=== PATIENT | male | born 1935 | race Caucasian/White ===

== ENCOUNTER 2017-07-15 10:50 | Observation (INO) | payer OTHER ==
[2017-07-15 11:16] VITALS: BMI 24.4
--- NOTE | 2017-07-15 11:47 | PDOC ---
History of Present Illness <Jun Alejandro - Last Filed: 07/15/17 19:16> - General History Source: Care Provider (god daughter, ) Exam Limitations: No Limitations - History of Present Illness Initial Comments: 07/15/17 11:47 CHIEF COMPLAINT: Witnessed Mechanical fall on ice, laceration to left episcopalian area and left sided rib and chest pain. HISTORY OF PRESENT ILLNESS: The patient is a 82 year old male with a history of HTN, HLD, dementia . reports that patient has episodes where he packs a bag and wanders around the neighborhood. Today he took a plastic bag and left the house while was in the bathroom. Goddaughter started to drive around to look for him found him laying in the street with laceration to left episcopalian. Goddaughter reports that the fall was witnessed by a car nearby who stated he just fell. Upon arrival to emergency department patient complained of nausea and had episode of stool incontinence. Patient is awake to self unaware of environment which is patient's baseline. Family reports the patient has no other change in mental status. No active vomiting. Complaining of left rib and chest pain. MEDS:[Gabapentin, paroxetine, donepezil, Alprazolam, PRN, Simvistatin, memantine , loratadine, atenolol, ] ALLERGIES: []None PCP: Kevin REVIEW OF SYSTEMS: GENERAL/CONSTITUTIONAL: Awake alert and oriented HEAD, EYES, EARS, NOSE AND THROAT: No change in vision. No facial edema, no bruising. NO active bleeding. Nares intact. RESPIRATORY: No cough, wheezing, or hemoptysis. CARDIAC: Denies chest pain, no shortness of breathe. MUSCULOSKELETAL: No spinal point tenderness, Good ROM to all four extremeties. NO CVA tenderness. [No] lateral neck pain. GI/: Denies abdominal pain, no nausea or vomiting, no bloody stool, no Hematuria. SKIN : Superficial abrasion to the palm of the right hand, 3 cm laceration to left temporal area, abrasion to left knee. NEUROLOGIC: No loss of consciousness, no numbness or tingling. PHYSICAL EXAM: GENERAL: Awake and alert and oriented x1 ( Normal patient baseline). EYES: The pupils are equal, round, and reactive to light, with clear, conjunctiva. Good extraocular movement. No nystagmus NOSE: No nasal trauma . Midface stable MOUTH: Teeth intact. HEAD: 3 Cm skin avulsion vs stellate laceration to the left temporal area. EARS: The ear canals and tympanic membranes are normal without trauma. No drainage. NECK: No Lower cervical C-spine tenderness, no pain with chin to chest. CHEST: The lungs are clear without crackles, or wheezes. No subcutaneous emphysema. No crepitus. HEART: Heart is regular rhythm, with normal S1 and S2, no murmurs. ABDOMEN: The abdomen is soft and nontender with normal bowel sounds. There is no guarding or rebound. MUSCULOSKELETAL: No spinal point tenderness. No bruising or erythema. Pelvis stable. EXTREMITIES: Extremities are normal. No visible traumatic injury. NEUROLOGICAL:Mental status: The patient is oriented x1 (normal baseline). No Generalized headache, Romberg [-] Cranial nerves: Cranial nerves II through XII are intact Motor: The upper extremities are 5 over 5 in all muscle groups. The lower extremities are 5 over 5 in all muscle groups. Sensation: Sensation is intact to light touch throughout. Cerebellar: Afhtli-aqfhps-tgyy is normal in both upper extremities. Heel-knee- salguero is normal in both lower extremities. Reflexes: 2+ and symmetric in the upper and lower extremities. Gait: Normal. Heel and toe walking are normal. Tandem gait is normal. SKIN: Bruise to the right chest, Superficial abrasion to the palm of right hand , 3 cm laceration to left temporal area, area surrounding wound is contused and friable, abrasion to the left knee. 07/15/17 15:57 <Milly Villafana - Last Filed: 07/15/17 19:54> - General Chief Complaint: Injury Stated Complaint: INJURY Time Seen by Provider: 07/15/17 11:21 Past History <Jun Alejandro - Last Filed: 07/15/17 19:16> - Past Medical History COPD: No Dementia: Yes - Surgical History Neurologic Surgery: Yes (NECK SURGERY) - Suicide/Smoking/Psychosocial Hx Smoking History: Never smoked <Milly Villafana - Last Filed: 07/15/17 19:54> - Past Medical History Allergies/Adverse Reactions: Allergies Allergy/AdvReac Type Severity Reaction Status Date / Time No Known Allergies Allergy Verified 07/15/17 11:11 Home Medications: Ambulatory Orders Alprazolam 1 mg PO DAILY PRN 04/03/17 Atenolol [Tenormin] 50 mg PO DAILY 04/03/17 Loratadine 10 mg PO DAILY 04/03/17 Paroxetine HCl 10 mg PO DAILY 04/03/17 Simvastatin 40 mg PO DAILY 04/03/17 Donepezil HCl 10 mg PO HS 07/15/17 Gabapentin 300 mg PO TID 07/15/17 Memantine HCl [Namenda -] 5 mg PO BID 07/15/17 *Physical Exam - Vital Signs Last Vital Signs Temp Pulse Resp BP Pulse Ox 98.6 F 84 20 123/73 99 07/15/17 17:00 07/15/17 17:00 07/15/17 17:00 07/15/17 17:00 07/15/17 18:59 <Jun Alejandro - Last Filed: 07/15/17 19:16> - Vital Signs Last Vital Signs Temp Pulse Resp BP Pulse Ox 97.7 F 55 L 19 108/65 97 07/15/17 11:11 07/15/17 11:11 07/15/17 11:11 07/15/17 11:11 07/15/17 11:11 <Milly Villafana - Last Filed: 07/15/17 19:54> Procedures - Consent Consent obtained: Verbal, From Patient - Laceration/Wound Repair Left Anterior Head Wound Length: to 2.5 cm Wound Explored: clean Wound's Depth, Shape: superficial, irregular, contused tissue Irrigated w/ Saline: Yes Betadine Prep: Yes Anesthesia: 1% Lidocaine Wound Repaired With: Sutures Suture Size/Type: 5:0, nylon Number of Sutures: 5 <Jun Alejandro - Last Filed: 07/15/17 19:16> ED Treatment Course - LABORATORY CBC & Chemistry Diagram: 07/15/17 13:08 07/15/17 13:08 - ADDITIONAL ORDERS Additional order review: Laboratory Results 07/15/17 13:08 Sodium 140 Potassium 4.5 Chloride 104 Carbon Dioxide 28 Anion Gap 8 BUN 16 D Creatinine 0.9 Creat Clearance w eGFR > 60 Random Glucose 106 Calcium 8.9 Total Bilirubin 0.6 AST 23 D ALT 22 Alkaline Phosphatase 100 Creatine Kinase 170 Creatine Kinase Index 1.5 CK-MB (CK-2) 2.583 Troponin I < 0.02 Total Protein 8.0 Albumin 4.4 07/15/17 13:08 RBC 4.44 MCV 93.4 MCHC 32.5 RDW 14.9 MPV 9.0 Neutrophils % 84.8 H D Lymphocytes % 5.5 L D Monocytes % 5.7 Eosinophils % 3.6 D Basophils % 0.4 <Jun Alejandro - Last Filed: 07/15/17 19:16> - LABORATORY CBC & Chemistry Diagram: 07/15/17 13:08 07/15/17 13:08 - RADIOLOGY Radiology Studies Ordered: Category Date Time Status CERVICAL SPINE CT W/O CONTR [CT] Stat CT Scan 07/15/17 11:[address] WITHOUT CONTRAST [CT] Stat CT Scan 07/15/17 11:34 Ordered CHEST PA & LAT [RAD] Stat Radiology 07/15/17 11:35 Ordered RIBS-LEFT SIDE [RAD] Stat Radiology 07/15/17 11:35 Ordered <Milly Villafana - Last Filed: 07/15/17 19:54> Medical Decision Making - Medical Decision Making 07/15/17 11:59 A/P: Patient with dementia, status post fall found on the street fall was unwitnessed by family however states another car witnessed him fall. Sustained laceration to left temporal area and pain to left side of chest and ribs. Patient denies any other pain there is no other visible injury besides an abrasion to the palm of the right hand. Patient is complaining of nausea will send patient for immediate head CT and neck. We will also perform chest x-ray, left ribs, CBC, CMP, cardiac profile, EKG. 07/15/17 13:09 Laboratory Results - last 24 hr 07/15/17 07/15/17 13:08 13:08 WBC 18.3 H D RBC 4.44 Hgb 13.5 Hct 41.5 MCV 93.4 MCH 30.4 MCHC 32.5 RDW 14.9 Plt Count 152 MPV 9.0 Neutrophils % 84.8 H D Lymphocytes % 5.5 L D Monocytes % 5.7 Eosinophils % 3.6 D Basophils % 0.4 Sodium 140 Potassium 4.5 Chloride 104 Carbon Dioxide 28 Anion Gap 8 BUN 16 D Creatinine 0.9 Creat Clearance w eGFR > 60 Random Glucose 106 Calcium 8.9 Total Bilirubin 0.6 AST 23 D ALT 22 Alkaline Phosphatase 100 Creatine Kinase 170 Creatine Kinase Index 1.5 CK-MB (CK-2) 2.583 Troponin I < 0.02 Total Protein 8.0 Albumin 4.4 Elevated WBCs most likely traumatic with no shift. Labs are otherwise unremarkable. Twelve-lead EKG was performed and reviewed by me. There is normal sinus rhythm with a left axis deviation. No ST elevations, no ST depressions, QTC 429 07/15/17 14:59 CT scan with IV contrast ordered for chest abdomen and pelvis as per request of Dr. Henry 07/15/17 15:07 07/15/17 15:57 Patient went down to CT scan, was not compliant with examination unable to lay flat and stay on stretcher CT scan felt it was unsafe for patient. I discussed case with Dr. Henry will perform US of abdomen to rule out acute injury. Patient is refusing to have urinalysis performed. Remains afebrile. 07/15/17 16:17 07/15/17 17:04 has told me that she gave her a Xanax 1 mg PO at approx 4 pm because he was agitated in US. I have instructed not to give any medication without the knowledge of hospital staff. She verbalized understanding. 07/15/17 18:34 Dr. Alejandro to repair wound to the left episcopalian. US with no free fluid in the upper abdomen. 07/15/17 19:20 07/15/17 19:28 Dr. Henry recommends DC with family believes white count is secondary to fall, given no obvious source of the patient's elevated white count will send blood cultures, UA and UC. Will observe patient if urinalysis is unremarkable will DC home. I am signing this patient out to my colleague: [JENNIFER Carcamo ] In brief, this patient is being seen in the ED for a chief complaint of: Mechanical fall, dementia, I have completed the initial assessment interview note and have ordered: Labs, CT, ultrasound, urinalysis I have reviewed the following results: Ultrasound, x-ray, labs Pending results are: UA Plan for disposition is as follows: Admit to short stay [facility] [place], [place] pending UA 07/15/17 19:51 <Milly Villafana - Last Filed: 07/15/17 19:54> *DC/Admit/Observation/Transfer <Jun Alejandro - Last Filed: 07/15/17 19:16> - Discharge Dispostion Admit: Yes <Milly Villafana - Last Filed: 07/15/17 19:54> Diagnosis at time of Disposition: Fall, Dementia, Leukocytosis
--- NOTE | 2017-07-15 12:41 | PDOC ---
*Physical Exam - Vital Signs Last Vital Signs Temp Pulse Resp BP Pulse Ox 97.7 F 55 L 19 108/65 97 07/15/17 11:11 07/15/17 11:11 07/15/17 11:11 07/15/17 11:11 07/15/17 11:11 ED Treatment Course - LABORATORY CBC & Chemistry Diagram: 07/15/17 13:08 07/15/17 13:08 Medical Decision Making - Medical Decision Making 07/15/17 12:39 Pt seen by the Advanced Practice Provider under my direct supervision Ancillary studies reviewed I agree with plan as outlined by the Advanced Practice Provider [employer]BI[employer]PLICATION ENGINEER Andolino *DC/Admit/Observation/Transfer Diagnosis at time of Disposition: Fall, Dementia, Leukocytosis - Discharge Dispostion Condition at time of disposition: Stable - Referrals - Patient Instructions - Post Discharge Activity
[2017-07-15 13:26] LABS: BASO % 0.4 % (0-2.0); EOS % 3.6 % (0-4.5); HEMATOCRIT 41.5 % (35.4-49); HEMOGLOBIN 13.5 GM/dL (11.7-16.9); LYMPH % 5.5 % (8-40); MCH 30.4 pg (25.7-33.7); MCHC 32.5 g/dl (32.0-35.9); MEAN CELL VOLUME 93.4 fl (80-96); MONO % 5.7 % (3.8-10.2); NEUT % 84.8 % (42.8-82.8); PLATELET COUNT 152 K/MM3 (134-434); RBC 4.44 M/mm3 (4.00-5.60); RDW 14.9 % (11.9-15.9); WHITE BLOOD COUNT 18.3 K/mm3 (4.0-10.0)
[2017-07-15 14:23] LABS: ALBUMIN 4.4 g/dl (3.4-5.0); ANION GAP 8 (8-16); BLOOD UREA NITROGEN 16 mg/dL (7-18); CALCIUM 8.9 mg/dL (8.5-10.1); CHLORIDE 104 mmol/L (98-107); CO2 28 mmol/L (21-32); CREATININE 0.9 mg/dL (0.7-1.3); GLUCOSE,RANDOM 106 mg/dL (74-106); POTASSIUM 4.5 mmol/L (3.5-5.1); SGOT/AST 23 U/L (15-37); SGPT/ALT 22 U/L (12-78); SODIUM 140 mmol/L (136-145)
[2017-07-15 14:27] LABS: ALK PHOS 100 U/L (45-117); BILIRUBIN,TOTAL 0.6 mg/dL (0.2-1.0)
[2017-07-15] MEDS ORDERED: ACETAMINOPHEN 325 MG TABLET (FP) PO PRN (17:07)
--- NOTE | 2017-07-15 17:09 | HP ---
CHIEF COMPLAINT: "My left shoulder hurts" PCP: Dr Brown HISTORY OF PRESENT ILLNESS: This is an 82 yo M with PMH of dementia, HTN, HLD, brought in by s/p fall. Patient is a poor historian and information is obtained from family. Per , he occasionally leaves the house and wonders off on the streets, getting lost. She was in the bathroom when he left so she called her goddaughter who drove around looking for him, finding him lying on the tarmac in the middle of a roadway, with blood gushing from his head. He was at his confused mental status baseline. He states that he fell mechanically. There was a car nearby and the local delivery driver confirmed that patient "just fell". Patient denies getting hit by car. In Ed patient complained of nausea and had episode of stool incontinence ( nonmelenous, nonbloody). He complains of vague L shoulder and rib pain. He denies loc, cp, sob, h/a, abd pain, n/v. complains of being unable to take care of him. ER course was notable for: (1)labs (2)ekg unremarkable for acute acs or arrythmia (3)imaging of head, shoulder, ribs-unremarkable for bleed or acute fracture; abd us Recent Travel: none PAST MEDICAL HISTORY: as above PAST SURGICAL HISTORY: as above Social History: lives with , no aid Smoking: none Alcohol: none Drugs: none Family History: unknown Allergies No Known Allergies Allergy (Verified 07/15/17 11:11) HOME MEDICATIONS: Home Medications Medication Instructions Recorded Alprazolam 1 mg PO DAILY 04/03/17 Atenolol [Tenormin] 50 mg PO DAILY 04/03/17 Loratadine 10 mg PO DAILY 04/03/17 Paroxetine HCl 10 mg PO DAILY 04/03/17 Simvastatin 10 mg PO DAILY 04/03/17 REVIEW OF SYSTEMS Absent: chest pain,palpitations RESPIRATORY: Absent: cough, shortness of breath GASTROINTESTINAL: Absent: abdominal pain, nausea, vomiting GENITOURINARY: Absent: dysuria NEUROLOGIC: Absent: headache, focal weakness or paresthesias PHYSICAL EXAMINATION Vital Signs - 24 hr 07/15/17 11:11 Temperature 97.7 F Pulse Rate 55 L Respiratory 19 Rate Blood Pressure 108/65 O2 Sat by Pulse 97 Oximetry (%) GENERAL: Awake, alert, oriented to self only HEAD: L sided forehead laceration. EYES: Pupils equal, round and reactive to light, extraocular movements intact, sclera anicteric, conjunctiva clear. No lid lag. EARS, NOSE, THROAT: Moist mucous membranes. NECK: supple LUNGS: Breath sounds equal, clear to auscultation bilaterally. HEART: Regular rate and rhythm, normal S1 and S2 ABDOMEN: Soft, nontender, moderately distended, normoactive bowel sounds, no guarding, no rebound, no masses. MUSCULOSKELETAL: No CVA tenderness. UPPER EXTREMITIES: 2+ pulses, warm, well-perfused. No cyanosis. No clubbing. No peripheral edema. L shouder pain, no obvious bony deformity LOWER EXTREMITIES: 1+ pulses, warm, well-perfused. No calf tenderness. No peripheral edema. L knee abrasion NEUROLOGICAL: Cranial nerves II-XII intact. Normal speech. PSYCHIATRIC: somewhat Cooperative. Good eye contact. SKIN: Warm, dry, lesion as above Laboratory Results - last 24 hr 07/15/17 07/15/17 13:08 13:08 WBC 18.3 H D RBC 4.44 Hgb 13.5 Hct 41.5 MCV 93.4 MCH 30.4 MCHC 32.5 RDW 14.9 Plt Count 152 MPV 9.0 Neutrophils % 84.8 H D Lymphocytes % 5.5 L D Monocytes % 5.7 Eosinophils % 3.6 D Basophils % 0.4 Sodium 140 Potassium 4.5 Chloride 104 Carbon Dioxide 28 Anion Gap 8 BUN 16 D Creatinine 0.9 Creat Clearance w eGFR > 60 Random Glucose 106 Calcium 8.9 Total Bilirubin 0.6 AST 23 D ALT 22 Alkaline Phosphatase 100 Creatine Kinase 170 Creatine Kinase Index 1.5 CK-MB (CK-2) 2.583 Troponin I < 0.02 Total Protein 8.0 Albumin 4.4 ASSESSMENT/PLAN: This is an 82 yo M with PMH of dementia, HTN, HLD, brought in by s/p fall. s/p mechanical fall, L shoulder pain, L head laceration -r/o MVA -f/u abdominal US to r/o splenic or hepatic laceration, observe overnight -tylenol for L shoulder pain -laceration repaired in ed Worsening dementia -requires placement or VNS -aricept 10 d, memantine 5 bid -paxil 10 d Neuropathy -gabapentin 300 bid HTN -atenolol 50 d HLD -lipitor 40 hs FEN no ivf lytes stable na restricted diet scds, diet Obs m/s Problem List - Problem (1) Fall Code(s): W19.XXXA - UNSPECIFIED FALL, INITIAL ENCOUNTER (2) Dementia Code(s): F03.90 - UNSPECIFIED DEMENTIA WITHOUT BEHAVIORAL DISTURBANCE (3) HTN (hypertension) Code(s): I10 - ESSENTIAL (PRIMARY) HYPERTENSION (4) HLD (hyperlipidemia) Code(s): E78.5 - HYPERLIPIDEMIA, UNSPECIFIED (5) Laceration of head Code(s): S01.91XA - LACERATION W/O FOREIGN BODY OF UNSP PART OF HEAD, INIT Visit type - Emergency Visit Emergency Visit: Yes Care time: The patient presented to the Emergency Department on the above date and was hospitalized for further evaluation of their emergent condition. - New Patient This patient is new to me today: Yes Date on this admission: 07/15/17 - Critical Care Critical Care patient: No
[2017-07-15 17:23] VITALS: BP 123/73; PULSE 84; TEMP 98.6
--- NOTE | 2017-07-15 20:04 | PDOC ---
*Physical Exam - Vital Signs Last Vital Signs Temp Pulse Resp BP Pulse Ox 98.6 F 84 20 123/73 99 07/15/17 17:00 07/15/17 17:00 07/15/17 17:00 07/15/17 17:00 07/15/17 18:59 ED Treatment Course - LABORATORY CBC & Chemistry Diagram: 07/15/17 13:08 07/15/17 13:08 - ADDITIONAL ORDERS Additional order review: Laboratory Results 07/15/17 13:08 Sodium 140 Potassium 4.5 Chloride 104 Carbon Dioxide 28 Anion Gap 8 BUN 16 D Creatinine 0.9 Creat Clearance w eGFR > 60 Random Glucose 106 Calcium 8.9 Total Bilirubin 0.6 AST 23 D ALT 22 Alkaline Phosphatase 100 Creatine Kinase 170 Creatine Kinase Index 1.5 CK-MB (CK-2) 2.583 Troponin I < 0.02 Total Protein 8.0 Albumin 4.4 07/15/17 13:08 RBC 4.44 MCV 93.4 MCHC 32.5 RDW 14.9 MPV 9.0 Neutrophils % 84.8 H D Lymphocytes % 5.5 L D Monocytes % 5.7 Eosinophils % 3.6 D Basophils % 0.4 Medical Decision Making - Medical Decision Making Patient with unwitnessed fall.. patient pending observations admission. signed out to hospitalist team by Dr. Knapp *DC/Admit/Observation/Transfer Diagnosis at time of Disposition: Fall Qualifiers: Encounter type: initial encounter Qualified Code(s): W19.XXXA - Unspecified fall, initial encounter Dementia Qualifiers: Dementia type: unspecified type Dementia behavioral disturbance: without behavioral disturbance Qualified Code(s): F03.90 - Unspecified dementia without behavioral disturbance Leukocytosis Qualifiers: Leukocytosis type: unspecified Qualified Code(s): D72.829 - Elevated white blood cell count, unspecified - Discharge Dispostion Condition at time of disposition: Stable - Referrals - Patient Instructions - Post Discharge Activity
[2017-07-15 20:09] LABS: URINE APPEARANCE CLEAR; URINE BILIRUBIN NEGATIVE (NEGATIVE); URINE BLOOD NEGATIVE (NEGATIVE); URINE COLOR LTYELLOW; URINE GLUCOSE (UA) NEGATIVE (NEGATIVE); URINE KETONE NEGATIVE (NEGATIVE); URINE LEUK ESTERASE NEGATIVE (NEGATIVE); URINE NITRITE NEGATIVE (NEGATIVE); URINE PROTEIN NEGATIVE (NEGATIVE); URINE UROBILINOGEN NEGATIVE mg/dL (0.2-1.0)
--- NOTE | 2017-07-15 20:56 | DS ---
Physical Exam: OBJECTIVE: Vital Signs Period Temp Pulse Resp BP Sys/Stearns Pulse Ox Last 24 Hr 97.7 F-98.6 F 55-84 19-20 108-123/65-73 97-99 LABS Laboratory Results - last 24 hr 07/15/17 07/15/17 07/15/17 13:08 13:08 20:00 WBC 18.3 H D RBC 4.44 Hgb 13.5 Hct 41.5 MCV 93.4 MCH 30.4 MCHC 32.5 RDW 14.9 Plt Count 152 MPV 9.0 Neutrophils % 84.8 H D Lymphocytes % 5.5 L D Monocytes % 5.7 Eosinophils % 3.6 D Basophils % 0.4 Sodium 140 Potassium 4.5 Chloride 104 Carbon Dioxide 28 Anion Gap 8 BUN 16 D Creatinine 0.9 Creat Clearance w eGFR > 60 Random Glucose 106 Calcium 8.9 Total Bilirubin 0.6 AST 23 D ALT 22 Alkaline Phosphatase 100 Creatine Kinase 170 Creatine Kinase Index 1.5 CK-MB (CK-2) 2.583 Troponin I < 0.02 Total Protein 8.0 Albumin 4.4 Urine Color Ltyellow Urine Appearance Clear Urine pH 6.0 Ur Specific [place] 1.013 Urine Protein Negative Urine Glucose (UA) Negative Urine Ketones Negative Urine Blood Negative Urine Nitrite Negative Urine Bilirubin Negative Urine Urobilinogen Negative Ur Leukocyte Esterase Negative HOSPITAL COURSE: Date of Admission:07/15/17 The patient is an 82 yo M with PMH of dementia, HTN, HLD, brought in by s/ p fall. Patient is a poor historian and information was obtained from family. Patient wandered out of house and was found in roadway s/p witnessed mechanical fall. He denied loc, cp, sob, h/a, abd pain, n/v. In the ED, imaging including CT head, shoulder and rib xrays were negative. Labs wer significant for a WBC count of 18.3. UA and urine culture were collected. Patient was placed in ED obs pending return of UA to rule out UTI. UA was negative and family feels comfortable with bringing him home. Patient was discharged with instructions to return to the ED if he developed any symptoms or if his symptoms became worse. He was also instructed to follow up with his PCP. If patient's urine culture comes back positive, will contact pt for further management. Date of Discharge: 07/15/17 Minutes to complete discharge: 20 Discharge Summary Reason For Visit: FALL, DEMENTIA,LEUKOCYTOSIS Current Active Problems Dementia (Acute) Fall (Acute) HLD (hyperlipidemia) (Acute) HTN (hypertension) (Acute) Laceration of head (Acute) Leukocytosis (Acute) Condition: Stable - Instructions Diet, Activity, Other Instructions: You were seen in the hospital after falling. Your imaging studies were negative for any fractures or head bleeds. You must follow up with your primary care doctor within the next week to monitor your status after the fall. If you develop changes in mental status, fevers, chills please call your doctor or come back to the ER. Disposition: HOME - Home Medications Comprehensive Discharge Medication List: Ambulatory Orders Alprazolam 1 mg PO DAILY PRN 04/03/17 Atenolol [Tenormin] 50 mg PO DAILY 04/03/17 Loratadine 10 mg PO DAILY 04/03/17 Paroxetine HCl 10 mg PO DAILY 04/03/17 Simvastatin 40 mg PO DAILY 04/03/17 Donepezil HCl 10 mg PO HS 07/15/17 Gabapentin 300 mg PO TID 07/15/17 Memantine HCl [Namenda -] 5 mg PO BID 07/15/17 This patient is new to me today: Yes Date on this admission: 07/15/17 Emergency Visit: Yes ED Registration Date: 07/15/17 Care time: The patient presented to the Emergency Department on the above date and was hospitalized for further evaluation of their emergent condition. Critical Care patient: No - Discharge Referral Referred to [facility] No
[2017-07-15] MEDS ORDERED: DONEPEZIL HCL 10 MG TABLET (FP) PO SCH (22:00)
[2017-07-15] MEDS ORDERED: GABAPENTIN 300 MG CAPSULE (FP) PO SCH (22:00)
[2017-07-15] MEDS ORDERED: ATORVASTATIN CA 40 MG TABLET (FP) PO SCH (22:00)
[2017-07-15] MEDS ORDERED: MEMANTINE HCL 5 MG TABLET (UD) PO SCH (22:00)
[2017-07-16] MEDS ORDERED: LORATADINE 10 MG TABLET PO SCH (10:00)
[2017-07-16] MEDS ORDERED: ATENOLOL 50 MG TABLET (FP) PO SCH (10:00)
[2017-07-16] MEDS ORDERED: PARoxetine HCL 10 MG TABLET (FP) PO SCH (10:00)
--- NOTE | 2017-07-16 23:25 | EKG ---
Test Reason : Blood Pressure : / mmHG Vent. Rate : 063 BPM Atrial Rate : 063 BPM P-R Int : 198 ms QRS Dur : 096 ms QT Int : 420 ms P-R-T Axes : 028 -35 014 degrees QTc Int : 429 ms NORMAL SINUS RHYTHM LEFT AXIS DEVIATION ABNORMAL ECG NO PREVIOUS ECGS AVAILABLE Confirmed by NORAH YEUNG MD ([id number]) on 07/16/2017 11:25:32 PM Referred By: Confirmed By:NORAH YEUNG MD
== END 2017-07-15 23:43 | disposition home or self-care (01) ==
LOC: JER 10:50 → JERBED 19:35 → UNDOADMOB 20:03 → JERBED 20:18 → UNDOADMOB 20:18
PROVIDERS: ADMIT Internal Medicine; ATTEND Internal Medicine
PROC: 0HQ1XZZ Repair Face Skin, External Approach (ICD-10-PCS; principal; 2017-07-15)
DX: S01.81XA Laceration without foreign body of other part of head, initial encounter (principal); W00.0XXA Fall on same level due to ice and snow, initial encounter; Z91.81 History of falling; Y93.01 Activity, walking, marching and hiking; Y92.480 Sidewalk as the place of occurrence of the external cause; I10 Essential (primary) hypertension; E78.5 Hyperlipidemia, unspecified; F03.90 Unspecified dementia, unspecified severity, without behavioral disturbance, psychotic disturbance, mood disturbance, and anxiety; Z91.19 Patient's noncompliance with other medical treatment and regimen; D72.829 Elevated white blood cell count, unspecified
CPT/HCPCS: 12011; 36415; 70450-TC; 71046-TC-FY; 71101-TC-FY; 72125-TC; 73030-TC-LT-FY; 76700-TC; 80053; 81003; 82550; 82553; 84484; 85025; 87040; 87086; 87186; 93005; 93010; 99283-25; G0378

== ENCOUNTER 2017-07-24 11:31 | Emergency (ER) | payer OTHER ==
[2017-07-24 11:39] VITALS: BP 139/76; PULSE 60; TEMP 97.4; BMI 24.1
--- NOTE | 2017-07-24 13:24 | PDOC ---
Suture Removal/Wound Check HPI - History of Present Illness Chief Complaint: Suture/Staple Removal(Here) Stated Complaint: SUTURE/STAPLE REMOVAL Time Seen by Provider: 07/24/17 12:30 History Source: Yes: Patient Exam Limitations: Yes: No Limitations Treated at: [facility] ED - Previous ED Treatment Type of procedure performed on last visit: Yes: Laceration Repair Tetanus Immunization: Yes: Up to Date Antibiotics Prescribed: No Past History - Travel Traveled outside of the country in the last 30 days: No Close contact w/someone who was outside of country & ill: No - Past Medical History Allergies/Adverse Reactions: Allergies Allergy/AdvReac Type Severity Reaction Status Date / Time No Known Allergies Allergy Verified 07/24/17 11:36 Home Medications: Ambulatory Orders Alprazolam 1 mg PO DAILY PRN 04/03/17 Atenolol [Tenormin] 50 mg PO DAILY 04/03/17 Loratadine 10 mg PO DAILY 04/03/17 Paroxetine HCl 10 mg PO DAILY 04/03/17 Simvastatin 40 mg PO DAILY 04/03/17 Donepezil HCl 10 mg PO HS 07/15/17 Gabapentin 300 mg PO TID 07/15/17 Memantine HCl [Namenda -] 5 mg PO BID 07/15/17 COPD: No Dementia: Yes Hypercholesterolemia: Yes - Surgical History Neurologic Surgery: Yes (NECK SURGERY, BILAT SHOULDER) - Immunization History Immunization Up to Date: Yes - Suicide/Smoking/Psychosocial Hx Smoking History: Never smoked Information on smoking cessation initiated: No Hx Alcohol Use: No Drug/Substance Use Hx: No Substance Use Type: None Suture Removal/Wound Check PE - Physical Exam Laceration/Wound Check Symptoms: reports: None Current Severity Level: None Maximum Severity Level: None Pain Localization: None Location of Laceration/Wound: left: Eye (2 sutures removed - others removed by patient . Well approximated ) *Review of Systems - Review of Systems Able to Perform ROS?: Yes Constitutional: Yes: Symptoms Reported, See HPI, Malaise HEENTM: No: Symptoms Reported All Other Systems: Reviewed and Negative *DC/Admit/Observation/Transfer Diagnosis at time of Disposition: Visit for suture removal - Discharge Dispostion Disposition: HOME Condition at time of disposition: Stable Admit: No - Referrals - Patient Instructions Printed Discharge Instructions: DI for Suture Removal - Post Discharge Activity
== END 2017-07-24 13:37 | disposition home or self-care (01) ==
LOC: JERFT 11:31
DX: Z48.02 Encounter for removal of sutures (principal); F03.90 Unspecified dementia, unspecified severity, without behavioral disturbance, psychotic disturbance, mood disturbance, and anxiety; E78.00 Pure hypercholesterolemia, unspecified
CPT/HCPCS: 99281-25

== ENCOUNTER 2018-03-10 00:26 | Inpatient (IN) | payer OTHER ==
[2018-03-10] MEDS ORDERED: SODIUM CHLORIDE 0.9% 1000 ML INFUS.BAG IV STA (01:28)
--- NOTE | 2018-03-10 01:38 | PDOC ---
History of Present Illness - General Chief Complaint: Diarrhea Stated Complaint: FLU SYMPTOMS/FEVER Time Seen by Provider: 03/10/18 01:15 - History of Present Illness Initial Comments: 82 year old male with a history of neurosurgery, HTN, HLD, dementia presents with subjective fevers, chills, myalgias, productive cough with sputum since night. 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 Since , the patient has also developed diarrhea and urinary incontinence. He denies any chest pain or SOB. PCP: Ed Salgado Hx: Denies smoking cigarettes, alcohol, or illicit drug usage. Allergies: NKA, NKDA Past History - Past Medical History Allergies/Adverse Reactions: Allergies Allergy/AdvReac Type Severity Reaction Status Date / Time No Known Allergies Allergy Verified 03/10/18 00:41 Home Medications: Ambulatory Orders Alprazolam 1 mg PO DAILY PRN 04/03/17 Paroxetine HCl 10 mg PO DAILY 04/03/17 Simvastatin 40 mg PO DAILY 04/03/17 Donepezil HCl 10 mg PO HS 07/15/17 Gabapentin 300 mg PO TID 07/15/17 Memantine HCl [Namenda -] 5 mg PO BID 07/15/17 traZODone HCL [Trazodone HCl] 50 mg PO DAILY 03/10/18 COPD: No Dementia: Yes Hypercholesterolemia: Yes Psychiatric Problems: Yes (Depression, anxiety) - Surgical History Neurologic Surgery: Yes (NECK SURGERY, BILAT SHOULDER) - Immunization History Immunization Up to Date: Yes - Suicide/Smoking/Psychosocial Hx Smoking History: Former smoker Have you smoked in the past 12 months: No If you are a former smoker, when did you quit?: 10 yrs ago Information on smoking cessation initiated: No Hx Alcohol Use: No Drug/Substance Use Hx: No Substance Use Type: None Review of Systems - Review of Systems Comments:: CONSTITUTIONAL: Present: Fever, chills, diaphopresis, generalized weakness, malaise, loss of appetite. HEENT: Absent: rhinorrhea, nasal congestion, throat pain, throat swelling, difficulty swallowing, mouth swelling, ear pain, eye pain, visual Changes CARDIOVASCULAR: Absent: chest pain, syncope, palpitations, irregular heart rate, lightheadedness , peripheral edema RESPIRATORY: Present: cough, shortness of breath Absent: dyspnea with exertion, orthopnea, wheezing, stridor, hemoptysis GASTROINTESTINAL: Present: Abdominal distension, diarrhea Absent: abdominal pain, nausea, vomiting, constipation, melena, hematochezia GENITOURINARY: Present: Frequency Absent: dysuria, urgency, hesitancy, hematuria, flank pain, genital pain MUSCULOSKELETAL: present: myalgia Absent: arthralgia, joint swelling SKIN: Absent: rash, itching, pallor HEMATOLOGIC/IMMUNOLOGIC: Absent: easy bleeding, easy bruising, lymphadenopathy, frequent infections ENDOCRINE: Absent: unexplained weight gain, unexplained weight loss, heat intolerance, cold intolerance NEUROLOGIC: Present: bowel and bladder incontinence Absent: headache, focal weakness or paresthesias, dizziness, unsteady gait, seizure, mental status changes PSYCHIATRIC: Absent: anxiety, depression, suicidal or homicidal ideation, hallucinations. *Physical Exam - Vital Signs Last Vital Signs Temp Pulse Resp BP Pulse Ox 97.4 F L 64 20 118/60 96 03/10/18 00:41 03/10/18 00:41 03/10/18 00:41 03/10/18 00:41 03/10/18 00:41 - Physical Exam Comments: GENERAL: Awake and alert. No acute distress. Patient is hard of hearing. HEENT: Normocephalic, atraumatic. PERRLA, EOMI. No conjunctival pallor. Sclera are non- icteric. Moist mucous membranes. Oropharynx is clear. NECK: Supple. Full ROM. No JVD. No thyromegaly. No lymphadenopathy. CARDIOVASCULAR: Regular rate and rhythm. No murmurs, rubs, or gallops. Distal pulses are 2+ and symmetric. PULMONARY: There are crackles on the lower left side of the lungs No wheezing, rales or rhonchi. ABDOMINAL: Abdomen is distended. No rebound or guarding. No organomegaly. Normoactive bowel sounds. MUSCULOSKELETAL Normal range of motion at all joints. Multiple hand bony deformities. No CVA tenderness. EXTREMITIES: No cyanosis. No clubbing. No edema. No calf tenderness. SKIN: Warm and dry. Normal capillary refill. No rashes. No jaundice. NEUROLOGICAL: Alert, awake, appropriate. Cranial nerves 2-12 intact. No deficits to light touch in face, upper extremities and lower extremities. No motor deficits in the in face, upper extremities and lower extremities. Normal speech. PSYCHIATRIC: Cooperative. Good eye contact. Appropriate mood and affect. ED Treatment Course - LABORATORY CBC & Chemistry Diagram: 03/10/18 01:57 03/10/18 01:57 - RADIOLOGY Radiology Studies Ordered: Category Date Time Status CHEST X-RAY PORTABLE* [RAD] Stat Radiology 03/10/18 01:28 Ordered Medical Decision Making - Medical Decision Making 82 year old male with a history of neurosurgery, HTN, HLD, dementia presents with subjective fevers, chills, myalgias, productive cough with sputum since night. DD includes but not limited to: influenza, Pneumonia, gastroenteritis, UTI, Meningitis, other infection, ACS. Plan: ED adult sepsis workup + rapid flu, re-assess. Rectal Temp at bedside not elevated, but oversize load pilot escort gave him acetaminophen. WBC count elevated at 19.5 Patient has crackles on left side XR looks congested consistent with PNA. Will admit to hospitalist. *DC/Admit/Observation/Transfer Diagnosis at time of Disposition: PNA (pneumonia) - Discharge Dispostion Condition at time of disposition: Guarded Decision to Admit order: Yes - Referrals Referrals: Ed Galo MD [Primary Care Provider] - - Patient Instructions - Post Discharge Activity
[2018-03-10 02:11] LABS: HEMOGLOBIN 14.3 GM/dL (11.7-16.9); MCH 31.4 pg (25.7-33.7); RBC 4.55 M/mm3 (4.00-5.60)
[2018-03-10 02:25] LABS: INR 1.16 (0.83-1.09); PROTHROMBIN TIME (PATIENT) 13.7 SEC (9.7-13.0)
[2018-03-10 02:27] LABS: BASO % 0.6 % (0-2.0); EOS % 5.4 % (0-4.5); HEMATOCRIT 42.5 % (35.4-49); MCHC 33.6 g/dl (32.0-35.9); MEAN CELL VOLUME 93.4 fl (80-96); MONO % 9.4 % (3.8-10.2); NEUT % 74.6 % (42.8-82.8); RDW 14.8 % (11.9-15.9); WHITE BLOOD COUNT 19.5 K/mm3 (4.0-10.0)
[2018-03-10 02:28] LABS: ACTIVATED PTT 29.4 SECONDS (25.2-36.5)
[2018-03-10 02:29] LABS: VENOUS PC02 54.1 mmHg (38-52); VENOUS PH 7.36 (7.32-7.42)
[2018-03-10] MEDS ORDERED: PIPERACILLIN/TAZOB 3.375 GM 3.375 GM in DEXTROSE 5%-WATER - 50 ML IVPB ONE (02:43)
[2018-03-10] MEDS ORDERED: PIPERACILLIN/TAZOB 3.375 GM 3.375 GM/50 ML BAG IVPB ONE (02:48)
[2018-03-10 03:36] LABS: ALBUMIN 4.2 g/dl (3.4-5.0); ALK PHOS 84 U/L (45-117); ANION GAP 8 MMOL/L (8-16); BILIRUBIN,TOTAL 0.7 mg/dL (0.2-1); BLOOD UREA NITROGEN 13 mg/dL (7-18); CALCIUM 8.7 mg/dL (8.5-10.1); CHLORIDE 103 mmol/L (98-107); CO2 29 mmol/L (21-32); CREATININE 0.7 mg/dL (0.55-1.3); GLUCOSE,RANDOM 84 mg/dL (74-106); POTASSIUM 4.1 mmol/L (3.5-5.1); SGOT/AST 35 U/L (15-37); SGPT/ALT 20 U/L (13-61); SODIUM 139 mmol/L (136-145); TOT PROT 7.8 g/dl (6.4-8.2)
[2018-03-10] MEDS ORDERED: ALBUTEROL SO4 0.083% IH SOL 2.5 MG/3 ML VIAL.NEB. NEB PRN (03:41)
--- NOTE | 2018-03-10 03:41 | PN ---
Teaching Attending Note Name of Resident: Emil Chase ATTENDING PHYSICIAN STATEMENT I saw and evaluated the patient. I reviewed the resident's note and discussed the case with the resident. I agree with the resident's findings and plan as documented. SUBJECTIVE: Patient is an 82 year old man with a history of neurosurgery, depression, anxiety, HTN, HLD, dementia with wandering presents with subjective fevers, chills, myalgias, productive cough with sputum since night. 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 Has had shaking chills and gait instability. Since , the patient has also developed diarrhea with stool incontinence and urinary incontinence. No recent hospital stay or use of antibiotics. He visits his daily at a Rehab facility. He denies any chest pain or SOB. He is unable to provide coherent history. OBJECTIVE: Alert and in no acute distress Vital Signs Period Temp Pulse Resp BP Sys/Stearns Pulse Ox Last 24 Hr 97.4 F-98.0 F 64-75 19-20 118/60 95-96 HEENT: No Jaundice, eye redness or discharge, PERRLA. Normocephalic, atraumatic. External ears are normal. No nasal discharge. Neck: Supple, nontender. No palpable adenopathy or thyromegaly. No JVD Chest: Good effort. Clear to auscultation and percussion. Heart: Regular. No S3, rub or murmur Abdomen: Not distended, soft, nontender and no HSM. No rebound or guarding. Normoactive bowel sounds. Ext: Peripheral pulses intact. No leg edema. Skin: Warm and dry. No petechiae, rash or ecchymosis. Neuro: Alert. Oriented to person. Dementia. CN 2-12 grossly intact. Sensation grossly intact in all four extremities and DTR are symmetric. Home Medications Medication Instructions Recorded Alprazolam 1 mg PO DAILY PRN 04/03/17 Paroxetine HCl 10 mg PO DAILY 04/03/17 Simvastatin 40 mg PO DAILY 04/03/17 Donepezil HCl 10 mg PO HS 07/15/17 Gabapentin 300 mg PO TID 07/15/17 Memantine HCl [Namenda -] 5 mg PO BID 07/15/17 traZODone HCL [Trazodone HCl] 50 mg PO DAILY 03/10/18 Abnormal Lab Results 03/10/18 03/10/18 03/10/18 01:57 01:57 01:57 WBC 19.5 H Absolute Neuts (auto) 14.5 H Eosinophils % 5.4 H PT with INR 13.70 H INR 1.16 H POC VBG pCO2 54.1 H POC VBG pO2 19.0 L* Mixed VBG HCO3 30.0 H ASSESSMENT AND PLAN: 1. Left lung pneumonia - Will treat with Azithromycin and Rocephin and gentle hydration with IV NS. UA pending. Provide comprehensive care for dementia including precautions for wandering. 2. Diarrhea - Etiology unclear. No abdominal pain. Will get CT of the abdomen and pelvis and send stool for analysis including C.diff toxin. Monitor electrolytes including K, Mg, Phosphate and Calcium. 3. DVT prophylaxis - Lovenox 40 mg SQ q 24 hours. 4. Advance directives - Full code
--- NOTE | 2018-03-10 03:46 | HP ---
CHIEF COMPLAINT: Increased sputum production and diarrhea PCP: Dr. Ed Galo HISTORY OF PRESENT ILLNESS: 82yo M with history of depression, HTN,HLD, Alzheimer dementia (with wandering) presents today with subjective fevers, chills, myalgias, and increased sputum production that first started around night. Pt is poor historian and his history is taken per chart and per caregiver. It was reported that the patient started to develop a cough alongside his yellow sputum production and was trialed on robitussin and tylenol alongside of some homeopathic medications. He then started to develop increased chills and watery diarrhea so the pt was brought to the hospital. Pt's caregiver reports no recent antibiotics within the past 2 months or any hospital stays. He denies any chest pain or SOB. He is unable to provide coherent history. ER course was notable for: (1) Rapid Flu (negative) (2) CXR showing some increased infiltrates (3) WBC 19 (4) Zosyn administered (5) Blood Cx Recent Travel: Denies PAST MEDICAL HISTORY: HTN HLD Alzheimer's dementia Depression PAST SURGICAL HISTORY: Social History: (per daughter) Smoking: Never Alcohol: none Drugs: None Allergies No Known Allergies Allergy (Verified 03/10/18 00:41) HOME MEDICATIONS: Home Medications Medication Instructions Recorded Alprazolam 1 mg PO DAILY PRN 04/03/17 Paroxetine HCl 10 mg PO DAILY 04/03/17 Simvastatin 40 mg PO DAILY 04/03/17 Donepezil HCl 10 mg PO HS 07/15/17 Gabapentin 300 mg PO TID 07/15/17 Memantine HCl [Namenda -] 5 mg PO BID 07/15/17 traZODone HCL [Trazodone HCl] 50 mg PO DAILY 03/10/18 REVIEW OF SYSTEMS Unable to obtain due to dementia PHYSICAL EXAMINATION Vital Signs - 24 hr 03/10/18 03/10/18 00:41 02:14 Temperature 97.4 F L 98.0 F Pulse Rate 64 75 Respiratory 20 19 Rate Blood Pressure 118/60 O2 Sat by Pulse 96 95 Oximetry (%) GENERAL: NAD, Awake, alert, and oriented only to self HEENT: EOMI, NAZARIO, MMM, no posterior oropharynx exudates noted LUNGS: Diminished breath sounds R>L base. Good inspiratory effort, no wheezes, no rales. No accessory muscle use. HEART: RRR, normal S1 and S2 without murmur ABDOMEN: Soft, NT/ND, normoactive BS, no guarding, no suprapubic tenderness, no hepatomegaly via percussion. MUSCULOSKELETAL: No CVA tenderness. EXTREMITIES: 2+ DP pulses, warm, well-perfused. No calf tenderness. No peripheral edema. NEUROLOGICAL: Cranial nerves II-XII intact. Normal speech. Normal gait. PSYCHIATRIC: Cooperative. Appropriate mood and affect. SKIN: Warm, dry, no rashes or lesions noted Laboratory Results - last 24 hr 03/10/18 03/10/18 03/10/18 01:57 01:57 01:57 WBC 19.5 H RBC 4.55 Hgb 14.3 Hct 42.5 MCV 93.4 MCH 31.4 MCHC 33.6 RDW 14.8 Absolute Neuts (auto) 14.5 H Neutrophils % 74.6 Lymphocytes % 10.0 D Monocytes % 9.4 Eosinophils % 5.4 H Basophils % 0.6 Nucleated RBC % 0 PT with INR 13.70 H INR 1.16 H PTT (Actin FS) 29.4 VBG pH 7.36 POC VBG pCO2 54.1 H POC VBG pO2 19.0 L* Mixed VBG HCO3 30.0 H Sodium Potassium Chloride Carbon Dioxide Anion Gap BUN Creatinine Creat Clearance w eGFR Random Glucose Calcium Total Bilirubin AST ALT Alkaline Phosphatase Troponin I Total Protein Albumin Blood Type Antibody Screen 03/10/18 03/10/18 03/10/18 01:57 01:57 01:57 WBC RBC Hgb Hct MCV MCH MCHC RDW Absolute Neuts (auto) Neutrophils % Lymphocytes % Monocytes % Eosinophils % Basophils % Nucleated RBC % PT with INR INR PTT (Actin FS) VBG pH POC VBG pCO2 POC VBG pO2 Mixed VBG HCO3 Sodium Cancelled Potassium Cancelled Chloride Cancelled Carbon Dioxide Cancelled Anion Gap Cancelled BUN Cancelled Creatinine Cancelled Creat Clearance w eGFR Cancelled Random Glucose Cancelled Calcium Cancelled Total Bilirubin Cancelled AST Cancelled ALT Cancelled Alkaline Phosphatase Cancelled Troponin I Cancelled Total Protein Cancelled Albumin Cancelled Blood Type Cancelled Antibody Screen Cancelled 03/10/18 02:50 WBC RBC Hgb Hct MCV MCH MCHC RDW Absolute Neuts (auto) Neutrophils % Lymphocytes % Monocytes % Eosinophils % Basophils % Nucleated RBC % PT with INR INR PTT (Actin FS) VBG pH POC VBG pCO2 POC VBG pO2 Mixed VBG HCO3 Sodium 139 Potassium 4.1 Chloride 103 Carbon Dioxide 29 Anion Gap 8 BUN 13 Creatinine 0.7 Creat Clearance w eGFR > 60 Random Glucose 84 Calcium 8.7 Total Bilirubin 0.7 AST 35 ALT 20 Alkaline Phosphatase 84 Troponin I Total Protein 7.8 Albumin 4.2 Blood Type Antibody Screen ASSESSMENT/PLAN: 1) Community acquired pneumonia --Increased sputum production alongside of elevated WBC and infiltrates on CXR --Rocephin 1gm and Zithromax 500x1 followed by 250mg qDaily thereafter --Sputum cultures --Albuterol nebs PRN for shortness of breath --Follow blood cultures --Tylenol 650mg PRN for fevers --NS@75cc/hr --Flu negative 2) Diarrhea --Watery diarrhea noted in HPI w/o recent use of ABX --C diff Ag/Tox --Possibly viral gastroenteritis --CT A/P to r/o other gross causes of colitis 3) Eosinophilia --Unknown cause however potentially reactive airway disease vs. parasitic disease --Given diarrhea will do ova/parasite exam 4) Alzheimer's dementia --Pt has tendency to wander due to dementia --Admit next to nurses station for monitoring --Continue Donepizil 10mg HS and Memantine 5mg qdaily 5) HLD --Continue simvastatin 40mg HS 6) ? Urinary retention --Obtain UA; may have to straight cath pt --Cr 0.7 (at baseine) showing lack of post-obstructive elevation --Possibly due to acute cystitis, but will have to follow UA --Bladder scans q8h to follow retention --Fluid hydrate in the meantime 7) History of HTN --Pt previously on Atenolol 50mg qDaily (per previous medical chart) however medication not amongst pill bottles brought in --Pt currently is 118/60 and will observe with low threshold to place back on prior atenolol dose if BP beings to increase FEN: Fluids: NS@75cc/hr Electrolyte abnormalities: None currently Nutrition: Cholesterol controlled PPX: DVT - Heparin SQ TID GI - Not indicated currently Medications confirmed with physical pill bottles brought in to ER Dispo: Admit M/S Case discussed with Dr. April Chase, DO - IM PGY-2 Visit type - Emergency Visit Emergency Visit: Yes ED Registration Date: 03/10/18 Care time: The patient presented to the Emergency Department on the above date and was hospitalized for further evaluation of their emergent condition. - New Patient This patient is new to me today: Yes Date on this admission: 03/10/18 - Critical Care Critical Care patient: No
[2018-03-10] MEDS: SODIUM CHLORIDE 1,000 ML IV SCH (03:48)
[2018-03-10 04:00] LABS: MEAN PLT VOLUME 9.6 fl (7.5-11.1); PLATELET COUNT 158 K/MM3 (134-434)
[2018-03-10] MEDS ORDERED: AZITHROMYCIN 250 MG TABLET PO ONE (04:06)
[2018-03-10] MEDS ORDERED: AZITHROMYCIN 250 MG TABLET ONE (04:45)
[2018-03-10 05:18] LABS: URINE APPEARANCE CLEAR; URINE BILIRUBIN NEGATIVE (<2.0 mg/dL); URINE COLOR YELLOW; URINE GLUCOSE (UA) NEGATIVE (NEGATIVE); URINE KETONE TRACE (NEGATIVE); URINE LEUK ESTERASE NEGATIVE (NEGATIVE); URINE NITRITE NEGATIVE (NEGATIVE); URINE PROTEIN NEGATIVE (NEGATIVE); URINE UROBILINOGEN NEGATIVE mg/dL (0.2-1.0)
[2018-03-10] MEDS ORDERED: GABAPENTIN 100 MG CAPSULE (FP) ONE (06:14)
[2018-03-10] MEDS: HEPARIN NA (PORCINE) 5,000 UNITS/ML 1ML VIAL SQ SCH ×3 (06:15→22:32)
[2018-03-10] MEDS: GABAPENTIN 300 MG CAPSULE (FP) PO SCH ×3 (06:15→22:31)
[2018-03-10] MEDS ORDERED: HEPARIN NA (PORCINE) 5,000 UNITS/ML 1ML VIAL ONE (06:15)
[2018-03-10] MEDS ORDERED: CEFTRIAXONE 2 GM in DEXTROSE 5%-WATER 100 ML IVPB SCH (10:00)
[2018-03-10] MEDS: traZODone HCL 50 MG TABLET (FP) PO SCH (10:41)
[2018-03-10] MEDS: PARoxetine HCL 10 MG TABLET (FP) PO SCH (10:41)
[2018-03-10] MEDS: MEMANTINE HCL 5 MG TABLET (UD) PO SCH ×2 (10:41→22:31)
[2018-03-10] MEDS ORDERED: CEFTRIAXONE 1 GM/50 ML BAG ONE (10:43)
[2018-03-10] MEDS: CEFTRIAXONE 1 GM in DEXTROSE 5%-WATER - 50 ML IVPB SCH (10:45)
--- NOTE | 2018-03-10 11:10 | PN ---
Progress Note, Physician - Current Medication List Current Medications: Active Medications Acetaminophen (Tylenol -) 650 mg PO Q4H PRN PRN Reason: FEVER Albuterol Sulfate (Ventolin 0.083% Nebulizer Soln -) 1 amp NEB Q4H PRN PRN Reason: SHORT OF BREATH/WHEEZING Atorvastatin Calcium (Lipitor -) 20 mg PO HS [facility] Donepezil HCl (Aricept -) 10 mg PO HS [facility]IM Gabapentin (Neurontin -) 300 mg PO TID [facility] Last Admin: 03/10/18 06:15 Dose: 300 mg Heparin Sodium (Porcine) (Heparin -) 5,000 unit SQ TID [facility] Last Admin: 03/10/18 06:15 Dose: 5,000 unit Sodium Chloride (Normal Saline -) 1,000 mls @ 75 mls/hr IV ASDIR [facility] Last Admin: 03/10/18 03:48 Dose: 75 mls/hr Ceftriaxone Sodium 1 gm/ (Dextrose) 50 mls @ 100 mls/hr IVPB DAILY [facility]; Protocol Last Admin: 03/10/18 10:45 Dose: 100 mls/hr Memantine (Namenda -) 5 mg PO BID [facility] Last Admin: 03/10/18 10:41 Dose: 5 mg Paroxetine HCl (Paxil -) 10 mg PO DAILY [facility] Last Admin: 03/10/18 10:41 Dose: 10 mg Trazodone HCl (Desyrel -) 50 mg PO DAILY [facility] Last Admin: 03/10/18 10:41 Dose: 50 mg - Objective Vital Signs: Vital Signs Temperature 97.8 F 03/10/18 10:56 Pulse Rate 78 03/10/18 10:56 Respiratory Rate 16 03/10/18 10:56 Blood Pressure 144/76 03/10/18 10:56 O2 Sat by Pulse Oximetry (%) 97 03/10/18 10:56 Labs: CBC, BMP 03/10/18 01:57 03/10/18 02:50 INR, PTT INR 1.16 (0.83-1.09) H 03/10/18 01:57 Problem List - Problems (1) PNA (pneumonia) Assessment/Plan: - infiltrates on CXR --Rocephin 1gm and Zithromax 250mg Daily --Sputum cultures --Albuterol nebs PRN for shortness of breath --Follow blood cultures --Pulm consult --Flu negative Code(s): J18.9 - PNEUMONIA, UNSPECIFIED ORGANISM (2) Diarrhea Assessment/Plan: --Watery diarrhea noted in HPI w/o recent use of ABX --C diff Ag/Tox --Possibly viral gastroenteritis --CT A/P -Poctotis --Gi consult --ova/parasite exam Code(s): R19.7 - DIARRHEA, UNSPECIFIED (3) HTN (hypertension) Assessment/Plan: --Monitor Code(s): I10 - ESSENTIAL (PRIMARY) HYPERTENSION (4) Dementia Assessment/Plan: --Pt has tendency to wander due to dementia --Admit next to nurses station for monitoring --Continue Donepizil 10mg HS and Memantine 5mg qdaily Code(s): F03.90 - UNSPECIFIED DEMENTIA WITHOUT BEHAVIORAL DISTURBANCE Qualifiers: Dementia type: unspecified type Dementia behavioral disturbance: without behavioral disturbance Qualified Code(s): F03.90 - Unspecified dementia without behavioral disturbance (5) Urinary retention Assessment/Plan: --Obtain UA; may have to straight cath pt --Cr 0.7 (at baseine) showing lack of post-obstructive elevation --Bladder scans q8h to follow retention --Fluid hydrate in the meantime Code(s): R33.9 - RETENTION OF URINE, UNSPECIFIED
[2018-03-10 12:27] LABS: ARTERIAL BLD GAS O2 SATURATION 93.6 % (90-98.9); ARTERIAL BLOOD GAS BASE EXCESS 1.7 meq/l (-2-2); ARTERIAL BLOOD GAS PCO2 39.2 mmHg (35-45); ARTERIAL BLOOD GAS PO2 69.2 mmHg (68-100); ARTERIAL BLOOD GAS pH 7.43 (7.35-7.45)
[2018-03-10 12:28] LABS: ALLENS TEST POSITIVE
--- NOTE | 2018-03-10 15:59 | CONS ---
DATE OF CONSULTATION: 03/10/2018 The patient is an 82-year-old man with a past medical history of depression, hypertension, hyperlipidemia, and Alzheimer dementia who presented to the hospital with complaints of fever, chills, myalgias, and a cough with increased sputum which began on . These symptoms were also associated with watery diarrhea. The patient denies any abdominal pain, blood in the stool, nausea, vomiting or hematemesis. He has not had a recent endoscopic evaluation. PAST MEDICAL HISTORY AND SURGICAL HISTORY: As list end in the HPI. ALLERGIES: No known drug allergies. SOCIAL HISTORY: He does not smoke, drink, or use drugs. HOME MEDIATIONS: Were reviewed and include alprazolam, paroxetine, simvastatin, Donepezil, gabapentin, Namenda, and trazodone. FAMILY HISTORY: No history of GI or gynecological malignancies. REVIEW OF SYSTEMS: Was very limited. The patient has been dementia. PHYSICAL EXAMINATION: Vital Signs: Temperature 97, pulse 78, respiratory rate 12, pulse oximetry 97% on room air, and blood pressure 144/76. General: No acute distress pleasant man eating lunch. Cardiovascular: S1, S2. Regular rate and rhythm Lungs: Bilaterally clear to auscultation. Abdomen: Soft, nontender. Extremities: No edema. LABORATORY DATA: White blood cell count 19, hemoglobin and hematocrit 14/42, platelet count 158, and neutrophils 14.5. INR 1.16. Sodium 139, potassium 4.1, and BUN with a creatinine of 13/0.7. Lactic acid 1. Total bilirubin 0.7, AST 35, ALT 20, and alkaline phosphatase 84. Total protein 7.8. Urine: Trace ketones. He had a CAT scan of the abdomen and pelvis performed in the emergency room without contrast. This reveals bilateral basilar infiltrates and possible mild concentric rectal wall thickening which could be on the basis of proctitis or secondary to under distention and the remainder of the colon demonstrates no obvious evidence of colitis. IMPRESSION: Cough, fever, and diarrhea most likely secondary to infectious etiology. This patient has bibasilar infiltrates and pneumonia. PLAN: Stool culture, ova and parasites, leukocytes, stool Giardia antigen, and Clostridium difficile colitis PCR should be ordered. Would also order atypical serologies on this patient such as a Legionella antigen considering his pulmonary symptoms as well as mycoplasma and chlamydia serologies. Antibiotics should be continued; he is currently on Zosyn. Advance his diet as tolerated. This patient will be followed by the GI Service. DO REAGAN MATTHEW/[id number]
[2018-03-10] MEDS ORDERED: DONEPEZIL HCL 10 MG TABLET (FP) PO SCH (22:00)
[2018-03-10] MEDS: ATORVASTATIN CA 20 MG TABLET (FP) PO SCH (22:31)
[2018-03-10 23:42] VITALS: BMI 25.4
[2018-03-11] MEDS ORDERED: LORazepam 2 MG/ML SDV VIAL IM ONE (01:43)
[2018-03-11] MEDS: SODIUM CHLORIDE 1,000 ML IV SCH (06:26)
[2018-03-11] MEDS: HEPARIN NA (PORCINE) 5,000 UNITS/ML 1ML VIAL SQ SCH ×3 (06:27→22:51)
[2018-03-11] MEDS: GABAPENTIN 300 MG CAPSULE (FP) PO SCH ×4 (06:27→22:40)
[2018-03-11 06:40] LABS: BASO % 0.4 % (0-2.0); EOS % 5.9 % (0-4.5); HEMATOCRIT 37.4 % (35.4-49); HEMOGLOBIN 12.3 GM/dL (11.7-16.9); LYMPH % 12.1 % (8-40); MCHC 32.8 g/dl (32.0-35.9); MEAN CELL VOLUME 94.5 fl (80-96); MEAN PLT VOLUME 8.8 fl (7.5-11.1); MONO % 7.3 % (3.8-10.2); NEUT % 74.3 % (42.8-82.8); PLATELET COUNT 127 K/MM3 (134-434); RBC 3.96 M/mm3 (4.00-5.60); RDW 14.7 % (11.9-15.9); WHITE BLOOD COUNT 9.2 K/mm3 (4.0-10.0)
[2018-03-11 07:00] LABS: ALBUMIN 3.4 g/dl (3.4-5.0); ALK PHOS 67 U/L (45-117); ANION GAP 7 MMOL/L (8-16); BILIRUBIN,TOTAL 0.6 mg/dL (0.2-1); BLOOD UREA NITROGEN 13 mg/dL (7-18); CALCIUM 8.6 mg/dL (8.5-10.1); CHLORIDE 107 mmol/L (98-107); CO2 28 mmol/L (21-32); CREATININE 0.6 mg/dL (0.55-1.3); GLUCOSE,RANDOM 95 mg/dL (74-106); POTASSIUM 4.4 mmol/L (3.5-5.1); SGOT/AST 29 U/L (15-37); SGPT/ALT 18 U/L (13-61); SODIUM 142 mmol/L (136-145); TOT PROT 6.5 g/dl (6.4-8.2)
[2018-03-11] MEDS ORDERED: VANCOMYCIN 1 GRAM (PRE-DOCKED) 1,000 MG/250 ML BAG IVPB ONE (07:30)
--- NOTE | 2018-03-11 09:25 | PN ---
Progress Note, Physician Chief Complaint: AWAKE CONFUSED NOTES AND EVENTS REVIEWED - Current Medication List Current Medications: Active Medications Acetaminophen (Tylenol -) 650 mg PO Q4H PRN PRN Reason: FEVER Albuterol Sulfate (Ventolin 0.083% Nebulizer Soln -) 1 amp NEB Q4H PRN PRN Reason: SHORT OF BREATH/WHEEZING Atorvastatin Calcium (Lipitor -) 20 mg PO HS [facility] Last Admin: 03/10/18 22:31 Dose: 20 mg Donepezil HCl (Aricept -) 10 mg PO HS [facility] Last Admin: 03/10/18 22:31 Dose: 10 mg Gabapentin (Neurontin -) 300 mg PO TID [facility] Last Admin: 03/11/18 06:27 Dose: 300 mg Heparin Sodium (Porcine) (Heparin -) 5,000 unit SQ TID [facility] Last Admin: 03/11/18 06:27 Dose: 5,000 unit Sodium Chloride (Normal Saline -) 1,000 mls @ 75 mls/hr IV ASDIR [facility] Last Admin: 03/11/18 06:26 Dose: 75 mls/hr Ceftriaxone Sodium 1 gm/ (Dextrose) 50 mls @ 100 mls/hr IVPB DAILY [facility]; Protocol Last Admin: 03/10/18 10:45 Dose: 100 mls/hr Memantine (Namenda -) 5 mg PO BID [facility] Last Admin: 03/10/18 22:31 Dose: 5 mg Paroxetine HCl (Paxil -) 10 mg PO DAILY [facility] Last Admin: 03/10/18 10:41 Dose: 10 mg Trazodone HCl (Desyrel -) 50 mg PO DAILY [facility] Last Admin: 03/10/18 10:41 Dose: 50 mg Vancomycin HCl (Vancomycin (Pre-Docked)) 1,000 mg IVPB Q12H [facility]; Protocol - Objective Vital Signs: Vital Signs Temperature 98.2 F 03/11/18 06:00 Pulse Rate 78 03/11/18 06:00 Respiratory Rate 18 03/11/18 06:00 Blood Pressure 148/69 03/11/18 06:00 O2 Sat by Pulse Oximetry (%) 97 03/10/18 18:02 Constitutional: Yes: Mild Distress Eyes: Yes: WNL HENT: Yes: WNL Neck: Yes: WNL Cardiovascular: Yes: WNL Respiratory: Yes: WNL Gastrointestinal: Yes: WNL Genitourinary: Yes: Incontinence Musculoskeletal: Yes: Muscle Weakness Extremities: Yes: Other Edema: Yes Peripheral Pulses WNL: Yes Integumentary: Yes: WNL Wound/Incision: Yes: Clean/Dry Neurological: Yes: Confusion ...Motor Strength: LLE, RLE Psychiatric: Yes: Other Labs: CBC, BMP 03/11/18 06:00 03/11/18 06:00 INR, PTT INR 1.16 (0.83-1.09) H 03/10/18 01:57 Problem List - Problems (1) Dementia Code(s): F03.90 - UNSPECIFIED DEMENTIA WITHOUT BEHAVIORAL DISTURBANCE Qualifiers: Dementia type: unspecified type Dementia behavioral disturbance: without behavioral disturbance Qualified Code(s): F03.90 - Unspecified dementia without behavioral disturbance (2) Fall Code(s): W19.XXXA - UNSPECIFIED FALL, INITIAL ENCOUNTER Qualifiers: Encounter type: initial encounter Qualified Code(s): W19.XXXA - Unspecified fall, initial encounter (3) HLD (hyperlipidemia) Code(s): E78.5 - HYPERLIPIDEMIA, UNSPECIFIED (4) Fever Code(s): R50.9 - FEVER, UNSPECIFIED (5) Myalgia Code(s): M79.10 - MYALGIA, UNSPECIFIED SITE (6) Diarrhea Code(s): R19.7 - DIARRHEA, UNSPECIFIED Assessment/Plan ID AND GI CONSULT APPRECIATED START VANCO FOR POSSIBLE SEPSIS CDIFF VS COLITIS OF OTHER CAUSE CHECK LABS PSYCH EVAL NOW ON ZYPREXA PT EVAL WILL NEED SNF
[2018-03-11] MEDS ORDERED: cefTRIAXone SODIUM 1 GM VIAL ONE (09:52)
[2018-03-11] MEDS ORDERED: DEXTROSE 5%-WATER - 50 ML IVPB ONE ×3 (09:52→17:12)
[2018-03-11] MEDS: MEMANTINE HCL 5 MG TABLET (UD) PO SCH ×2 (09:54→22:51)
[2018-03-11] MEDS: PARoxetine HCL 10 MG TABLET (FP) PO SCH (09:54)
[2018-03-11] MEDS: traZODone HCL 50 MG TABLET (FP) PO SCH (09:54)
--- NOTE | 2018-03-11 10:33 | EKG ---
Test Reason : Blood Pressure : / mmHG Vent. Rate : 060 BPM Atrial Rate : 060 BPM P-R Int : 206 ms QRS Dur : 102 ms QT Int : 434 ms P-R-T Axes : 023 -30 033 degrees QTc Int : 434 ms NORMAL SINUS RHYTHM LEFT AXIS DEVIATION ABNORMAL ECG WHEN COMPARED WITH ECG OF 15-JUL-2017 13:09, NO SIGNIFICANT CHANGE WAS FOUND Confirmed by NORAH YEUNG MD ([id number]) on 03/11/2018 10:32:55 AM Referred By: Confirmed By:NORAH YEUNG MD
--- NOTE | 2018-03-11 11:45 | CON.ID ---
Consult Consult Specialty:: infectious diseases Reason for Consultation:: ams,pneumonia - History of Present Illness History of Present Illness: patient confused cannot give history which is taken from the charts according to the notes 82yo M with history of depression, HTN,HLD, Alzheimer dementia (with wandering) came with subjective fevers, chills, myalgias, and increased sputum production that first started around night. It was reported that the patient started to develop a cough alongside his yellow sputum production and was given robitussin and tylenol alongside of some homeopathic medications. He then started to develop increased chills and watery diarrhea so the pt was brought to the hospital. patient was admitted and worked up and on imaging studies was found to have infiltrates as well as possible proctitis which is a bit worrisome as patient has been having dirrhoea according to the notes - History Source History Provided By: Medical Record Limitations to Obtaining History: Clinical Condition - Alcohol/Substance Use Hx Alcohol Use: No - Smoking History Smoking history: Former smoker Have you smoked in the past 12 months: No If you are a former smoker, when did you quit?: 10 yrs ago Home Medications - Allergies Allergies/Adverse Reactions: Allergies Allergy/AdvReac Type Severity Reaction Status Date / Time No Known Allergies Allergy Verified 03/10/18 00:41 - Home Medications Home Medications: Ambulatory Orders Alprazolam 1 mg PO DAILY PRN 04/03/17 Paroxetine HCl 10 mg PO DAILY 04/03/17 Simvastatin 40 mg PO DAILY 04/03/17 Donepezil HCl 10 mg PO HS 07/15/17 Gabapentin 300 mg PO TID 07/15/17 Memantine HCl [Namenda -] 5 mg PO BID 07/15/17 Latanoprost 0.005% Eye Drops [Xalatan 0.005% Eye Drops -] 1 drop HS 03/10/18 traZODone HCL [Trazodone HCl] 50 mg PO DAILY 03/10/18 Review of Systems - Review of Systems Constitutional: reports: Fever Eyes: reports: No Symptoms HENT: reports: No Symptoms Neck: reports: No Symptoms Cardiovascular: reports: No Symptoms Respiratory: reports: No Symptoms Gastrointestinal: reports: Diarrhea Genitourinary: reports: No Symptoms Musculoskeletal: reports: No Symptoms Integumentary: reports: No Symptoms Neurological: reports: No Symptoms Endocrine: reports: No Symptoms Hematology/Lymphatic: reports: No Symptoms Psychiatric: reports: No Symptoms Physical Exam Vital Signs: Vital Signs Temperature 98.2 F 03/11/18 06:00 Pulse Rate 78 03/11/18 06:00 Respiratory Rate 18 03/11/18 06:00 Blood Pressure 148/69 03/11/18 06:00 O2 Sat by Pulse Oximetry (%) 97 03/10/18 18:02 Constitutional: Yes: Well Nourished, No Distress, Calm Cardiovascular: Yes: Regular Rate and Rhythm Respiratory: Yes: Poor Air Entry, Rhonchi Gastrointestinal: Yes: Normal Bowel Sounds, Soft Musculoskeletal: Yes: WNL Extremities: Yes: WNL Neurological: Yes: Alert, Confusion Psychiatric: Yes: Alert Labs: CBC, BMP 03/11/18 06:00 03/11/18 06:00 Imaging - Results Chest X-ray: Report Reviewed, Image Reviewed Cat Scan: Report Reviewed, Image Reviewed Assessment/Plan Problem List - Problems (1) Dementia Code(s): F03.90 - UNSPECIFIED DEMENTIA WITHOUT BEHAVIORAL DISTURBANCE Qualifiers: Dementia type: unspecified type Dementia behavioral disturbance: without behavioral disturbance Qualified Code(s): F03.90 - Unspecified dementia without behavioral disturbance (2) Fall Code(s): W19.XXXA - UNSPECIFIED FALL, INITIAL ENCOUNTER Qualifiers: Encounter type: initial encounter Qualified Code(s): W19.XXXA - Unspecified fall, initial encounter (3) HLD (hyperlipidemia) Code(s): E78.5 - HYPERLIPIDEMIA, UNSPECIFIED (4) Fever Code(s): R50.9 - FEVER, UNSPECIFIED (5) Myalgia Code(s): M79.10 - MYALGIA, UNSPECIFIED SITE (6) Diarrhea Code(s): R19.7 - DIARRHEA, UNSPECIFIED 7 bacteremia will start patient on abx watch for fevers repeat blood cx tomorrow await for identification of the organism
--- NOTE | 2018-03-11 11:48 | CON.PULM ---
Consult Consult Specialty:: PULM/CCM Referred by:: KAREN Reason for Consultation:: SOB - History of Present Illness Chief Complaint: SOB History of Present Illness: 82 M, depression, HTN, HLD, and Alzheimer dementia. Admitted via the ER due to fevers, chills, myalgias, and increased sputum production for 2 to 3 days duration. His respiratory symptoms were not improved with Robitussin. Patient is a poor historian so the information is mostly taken from the chart. No apparent travel history. No sick contacts. Apparently he has also developed diarrhea. CXR: Weak inspiratory effort - History Source History Provided By: Patient, Medical Record Limitations to Obtaining History: Poor Historian - Alcohol/Substance Use Hx Alcohol Use: No - Smoking History Smoking history: Former smoker Have you smoked in the past 12 months: No If you are a former smoker, when did you quit?: 10 yrs ago Home Medications - Allergies Allergies/Adverse Reactions: Allergies Allergy/AdvReac Type Severity Reaction Status Date / Time No Known Allergies Allergy Verified 03/10/18 00:41 - Home Medications Home Medications: Ambulatory Orders Alprazolam 1 mg PO DAILY PRN 04/03/17 Paroxetine HCl 10 mg PO DAILY 04/03/17 Simvastatin 40 mg PO DAILY 04/03/17 Donepezil HCl 10 mg PO HS 07/15/17 Gabapentin 300 mg PO TID 07/15/17 Memantine HCl [Namenda -] 5 mg PO BID 07/15/17 Latanoprost 0.005% Eye Drops [Xalatan 0.005% Eye Drops -] 1 drop HS 03/10/18 traZODone HCL [Trazodone HCl] 50 mg PO DAILY 03/10/18 Review of Systems - Review of Systems Constitutional: reports: Chills, Fever, Lethargy, Loss of Appetite, Malaise, Weakness. denies: Night Sweats, Unintentional Wgt. Loss Eyes: reports: No Symptoms HENT: reports: No Symptoms Neck: reports: No Symptoms Cardiovascular: reports: Shortness of Breath. denies: Chest Pain, Edema, Palpitations Respiratory: reports: Cough, SOB, SOB on Exertion. denies: Hemoptysis, Wheezing Gastrointestinal: reports: Abdominal Pain, Diarrhea, Nausea, Vomiting. denies: Melena, Vomiting Blood Genitourinary: reports: No Symptoms Breasts: reports: No Symptoms Reported Musculoskeletal: reports: Back Pain Integumentary: reports: No Symptoms Neurological: reports: Confusion Endocrine: reports: No Symptoms Hematology/Lymphatic: reports: No Symptoms Psychiatric: reports: No Symptoms Physical Exam Vital Sings: Vital Signs Temperature 98.2 F 03/11/18 06:00 Pulse Rate 78 03/11/18 06:00 Respiratory Rate 18 03/11/18 06:00 Blood Pressure 148/69 03/11/18 06:00 O2 Sat by Pulse Oximetry (%) 97 03/10/18 18:02 Constitutional: Yes: No Distress, Thin Eyes: Yes: Conjunctiva Clear, EOM Intact HENT: Yes: Atraumatic, Normocephalic Neck: Yes: Supple, Trachea Midline Cardiovascular: Yes: Regular Rate and Rhythm Respiratory: Yes: Diminished. No: Accessory Muscle Use, Rales, Rhonchi, Stridor , Tachypnea, Wheezes ...Inspection: Yes: WNL ...Clubbing: No Gastrointestinal: Yes: Normal Bowel Sounds, Soft Renal/: Yes: WNL Musculoskeletal: Yes: WNL Extremities: Yes: WNL Edema: No Peripheral Pulses WNL: Yes Integumentary: Yes: WNL Neurological: Yes: Alert, Confusion Labs: CBC, BMP 03/11/18 06:00 03/11/18 06:00 ABG Results ABG pH 7.43 (7.35-7.45) 03/10/18 12:10 ABG pCO2 at Pt Temp 39.2 mmHg (35-45) 03/10/18 12:10 ABG pO2 at Pt Temp 69.2 mmHg (68-100) 03/10/18 12:10 ABG HCO3 25.5 meq/L (22-26) 03/10/18 12:10 ABG O2 Sat (Measured) 93.6 % (90-98.9) 03/10/18 12:10 ABG O2 Content 15.5 % vol (15-22) 03/10/18 12:10 ABG Base Excess 1.7 meq/l (-2-2) 03/10/18 12:10 Imaging - Results Chest X-ray: Report Reviewed, Image Reviewed Cat Scan: Report Reviewed, Image Reviewed Problem List - Problems (1) Diarrhea Code(s): R19.7 - DIARRHEA, UNSPECIFIED (2) Bronchitis Code(s): J40 - BRONCHITIS, NOT SPECIFIED ACUTE OR CHRONIC (3) Dementia Code(s): F03.90 - UNSPECIFIED DEMENTIA WITHOUT BEHAVIORAL DISTURBANCE Qualifiers: Dementia type: unspecified type Dementia behavioral disturbance: without behavioral disturbance Qualified Code(s): F03.90 - Unspecified dementia without behavioral disturbance (4) HLD (hyperlipidemia) Code(s): E78.5 - HYPERLIPIDEMIA, UNSPECIFIED (5) HTN (hypertension) Code(s): I10 - ESSENTIAL (PRIMARY) HYPERTENSION Assessment/Plan Do not suspect PNA: changes on CT are most likely atelectasis O2 as needed GI workup Aspiration precautions VTE prophylaxis BD TX PRN No indication for systemic steroids at this time Will follow. Thank you. Dr Brady
[2018-03-11] MEDS ORDERED: PIPERACILLIN/TAZOBACTAM 3.375 GM VIAL IVPB ONE ×2 (12:04→17:12)
[2018-03-11] MEDS: CEFTRIAXONE 1 GM in DEXTROSE 5%-WATER - 50 ML IVPB SCH (12:18)
--- NOTE | 2018-03-11 12:22 | PN ---
GI Progress Note Subjective: Evaluation limited as he was sitting at nurse's station eating lunch No acute events Diarrhea overnight, no diarrhea since this morning. per nurse and state tested nursing assistant he had 1 small semiformed BM - Objective Vital Signs: Vital Signs Temperature 98.2 F 03/11/18 06:00 Pulse Rate 78 03/11/18 06:00 Respiratory Rate 18 03/11/18 06:00 Blood Pressure 148/69 03/11/18 06:00 O2 Sat by Pulse Oximetry (%) 97 03/10/18 18:02 Constitutional: Calm Eyes: No: Sclera Icterus Cardiovascular: Yes: Regular Rate and Rhythm Respiratory: Yes: CTA Bilaterally Gastrointestinal Inspection: No: Distention ...Auscultate: Yes: Normoactive Bowel Sounds Edema: No (No LE edema) Neurological: Yes: Alert Labs: CBC, BMP 03/11/18 06:00 03/11/18 06:00 INR 1.16 (0.83-1.09) H 03/10/18 01:57 Hepatic Panel Total Bilirubin 0.6 mg/dL (0.2-1) 03/11/18 06:00 AST 29 U/L (15-37) 03/11/18 06:00 ALT 18 U/L (13-61) 03/11/18 06:00 Alkaline Phosphatase 67 U/L (45-117) 03/11/18 06:00 Albumin 3.4 g/dl (3.4-5.0) 03/11/18 06:00 Microbiology 03/10/18 11:30 Stool Clostridium difficile Antigen ([facility]) - Neg 03/10/18 11:30 Stool Clostridium difficile Toxin Assay - Neg 03/10/18 03/11/18 22:45 06:00 Stool O & P Wet Mount Pending C. pneumoniae IgM Ab Pending O & P Permanent Slide Pending Problem List - Problems (1) Diarrhea Assessment/Plan: No overt diarrhea reported today Stool culture if able. O&P pending C. Diff neg Outpatient follow-up when acute issues resolved Code(s): R19.7 - DIARRHEA, UNSPECIFIED
[2018-03-11] MEDS: PIPERACILLIN/TAZOB 3.375 GM 3.375 GM in DEXTROSE 5%-WATER - 50 ML IVPB SCH ×2 (13:21→18:04)
--- NOTE | 2018-03-11 13:46 | CON.PSY ---
Psychiatry Consult Chief Complaint: *2 year old male with a history of Dementia, progressive . seen for acute agitation and aggressive behaviour. Symptoms: reports: Memory Impairment, Inability to Control Temper, Impulsivity - Previous Psychiatric Treatment Outpatient: None Inpatient: None - Previous Substance Abuse Treatment Outpatient: None Inpatient: None - Current Medications Current Medications: Active Medications Acetaminophen (Tylenol -) 650 mg PO Q4H PRN PRN Reason: FEVER Albuterol Sulfate (Ventolin 0.083% Nebulizer Soln -) 1 amp NEB Q4H PRN PRN Reason: SHORT OF BREATH/WHEEZING Atorvastatin Calcium (Lipitor -) 20 mg PO HS [facility] Last Admin: 03/10/18 22:31 Dose: 20 mg Gabapentin (Neurontin -) 300 mg PO TID [facility] Last Admin: 03/11/18 06:27 Dose: 300 mg Heparin Sodium (Porcine) (Heparin -) 5,000 unit SQ TID [facility] Last Admin: 03/11/18 06:27 Dose: 5,000 unit Sodium Chloride (Normal Saline -) 1,000 mls @ 75 mls/hr IV ASDIR [facility] Last Admin: 03/11/18 06:26 Dose: 75 mls/hr Piperacillin Sod/Tazobactam (Sod 3.375 gm/ Dextrose) 50 mls @ 100 mls/hr IVPB Q8H-IV [facility]; Protocol Last Admin: 03/11/18 13:21 Dose: 100 mls/hr Lorazepam (Ativan Injection -) 1 mg IVPUSH Q6H PRN PRN Reason: AGTATION Memantine (Namenda -) 5 mg PO BID [facility] Last Admin: 03/11/18 09:54 Dose: 5 mg Olanzapine (Zyprexa -) 7.5 mg PO [facility] Vancomycin HCl (Vancomycin (Pre-Docked)) 1,000 mg IVPB DAILY [facility] - Allergies Allergies: Allergies Allergy/AdvReac Type Severity Reaction Status Date / Time No Known Allergies Allergy Verified 03/10/18 00:41 - Current Living Status Usual Living Arrangement: With Spouse - Current Mental Status Evaluation Appearance: Well Groomed Attitude: Uncooperative - Affect Affect: Constrictive Appropriateness: Appropriate to Content - Mood Mood: Irritable - Speech/Language Expressive: Delayed - Psychomotor Activity Psychomotor Activity: Hyperactive - Thought Process Thought Process: Circumstantial - Thought Content Hallucinations: Absent Delusions: Absent - Self Perception Self Perception: Depersonalization - Cognition Attention: Alert Memory, Immediate Recall: Impaired Memory, Short Term: 0/3 Memory, Remote with Promptin/3 - Concentration Serial Sevens Intact: No Simple Calculations Intact: No - Abstraction Proverb Interpretation: [place] Judgement: Moderately Impaired - Insight Insight: Impaired - Impulse Control Impulse Control: Moderately Impaired - Suicidal Ideation Suicidal Ideation: No - Homicidal Ideation Homicidal Ideation: No Assessment/Plan !) d/c trazadone and paxil/ 2) Zyprexa 7.5mg po hs for Behavioral disturbances.
[2018-03-11] MEDS: LORazepam 2 MG/ML SDV VIAL IVPUSH PRN (16:55)
[2018-03-11] MEDS ORDERED: VANCOMYCIN 1 GRAM (PRE-DOCKED) 1,000 MG/250 ML BAG IVPB SCH (20:00)
[2018-03-11] MEDS ORDERED: OLANZapine 2.5 MG TABLET PO SCH (22:00)
[2018-03-11] MEDS ORDERED: OLANZapine 7.5 MG TABLET PO SCH (22:00)
[2018-03-11] MEDS: ATORVASTATIN CA 20 MG TABLET (FP) PO SCH (22:51)
[2018-03-12] MEDS ORDERED: PIPERACILLIN/TAZOBACTAM 3.375 GM VIAL IVPB ONE ×4 (01:10→21:12)
[2018-03-12] MEDS ORDERED: DEXTROSE 5%-WATER - 50 ML IVPB ONE ×4 (01:10→21:12)
[2018-03-12] MEDS: LORazepam 2 MG/ML SDV VIAL IVPUSH PRN ×4 (01:14→22:42)
[2018-03-12] MEDS: PIPERACILLIN/TAZOB 3.375 GM 3.375 GM in DEXTROSE 5%-WATER - 50 ML IVPB SCH ×3 (01:36→17:45)
[2018-03-12] MEDS: SODIUM CHLORIDE 1,000 ML IV SCH (06:28)
[2018-03-12] MEDS: HEPARIN NA (PORCINE) 5,000 UNITS/ML 1ML VIAL SQ SCH ×3 (06:28→22:03)
[2018-03-12] MEDS: GABAPENTIN 300 MG CAPSULE (FP) PO SCH ×3 (06:28→22:04)
--- NOTE | 2018-03-12 09:07 | PN ---
Progress Note, Physician Chief Complaint: AWAKE CONFUSED IN WHEEL CHAIR NEXT TO NURSES STATION - Current Medication List Current Medications: Active Medications Acetaminophen (Tylenol -) 650 mg PO Q4H PRN PRN Reason: FEVER Albuterol Sulfate (Ventolin 0.083% Nebulizer Soln -) 1 amp NEB Q4H PRN PRN Reason: SHORT OF BREATH/WHEEZING Atorvastatin Calcium (Lipitor -) 20 mg PO HS [facility] Last Admin: 03/11/18 22:51 Dose: Not Given Gabapentin (Neurontin -) 300 mg PO TID [facility] Last Admin: 03/12/18 06:28 Dose: 300 mg Heparin Sodium (Porcine) (Heparin -) 5,000 unit SQ TID [facility] Last Admin: 03/12/18 06:28 Dose: 5,000 unit Sodium Chloride (Normal Saline -) 1,000 mls @ 75 mls/hr IV ASDIR [facility] Last Admin: 03/12/18 06:28 Dose: 75 mls/hr Piperacillin Sod/Tazobactam (Sod 3.375 gm/ Dextrose) 50 mls @ 100 mls/hr IVPB Q8H-IV [facility]; Protocol Last Admin: 03/12/18 01:36 Dose: 100 mls/hr Lorazepam (Ativan Injection -) 1 mg IVPUSH Q6H PRN PRN Reason: AGTATION Last Admin: 03/12/18 06:27 Dose: 1 mg Memantine (Namenda -) 5 mg PO BID [facility] Last Admin: 03/11/18 22:51 Dose: Not Given Olanzapine 5 mg/ Olanzapine 2. (5 mg) 7.5 mg PO [facility] Vancomycin HCl (Vancomycin (Pre-Docked)) 1,000 mg IVPB DAILY [facility] - Objective Vital Signs: Vital Signs Temperature 97.7 F 03/12/18 06:00 Pulse Rate 80 03/12/18 06:00 Respiratory Rate 18 03/12/18 06:00 Blood Pressure 130/86 03/12/18 06:00 O2 Sat by Pulse Oximetry (%) 98 03/11/18 21:00 Constitutional: Yes: Mild Distress Eyes: Yes: Other Cardiovascular: Yes: WNL Respiratory: Yes: WNL Gastrointestinal: Yes: WNL Genitourinary: Yes: Incontinence Musculoskeletal: Yes: Muscle Weakness Edema: Yes Edema: LLE: 1+, RLE: 1+ Peripheral Pulses WNL: Yes Integumentary: Yes: WNL Wound/Incision: Yes: Clean/Dry Neurological: Yes: Pre-Existing Deficit ...Motor Strength: LLE, RLE Psychiatric: Yes: Other Labs: CBC, BMP 03/11/18 06:00 03/11/18 06:00 INR, PTT INR 1.16 (0.83-1.09) H 03/10/18 01:57 Problem List - Problems (1) Dementia Code(s): F03.90 - UNSPECIFIED DEMENTIA WITHOUT BEHAVIORAL DISTURBANCE Qualifiers: Dementia type: unspecified type Dementia behavioral disturbance: without behavioral disturbance Qualified Code(s): F03.90 - Unspecified dementia without behavioral disturbance (2) Fall Code(s): W19.XXXA - UNSPECIFIED FALL, INITIAL ENCOUNTER Qualifiers: Encounter type: initial encounter Qualified Code(s): W19.XXXA - Unspecified fall, initial encounter (3) HLD (hyperlipidemia) Code(s): E78.5 - HYPERLIPIDEMIA, UNSPECIFIED (4) Fever Code(s): R50.9 - FEVER, UNSPECIFIED (5) Myalgia Code(s): M79.10 - MYALGIA, UNSPECIFIED SITE (6) Diarrhea Code(s): R19.7 - DIARRHEA, UNSPECIFIED Assessment/Plan ID AND GI CONSULT APPRECIATED START VANCO FOR POSSIBLE SEPSIS NOW ON ZOSYN CDIFF VS COLITIS OF OTHER CAUSE CHECK LABS PSYCH EVAL NOW ON ZYPREXA PT EVAL WILL NEED SNF
[2018-03-12] MEDS: MEMANTINE HCL 5 MG TABLET (UD) PO SCH ×2 (09:50→22:04)
--- NOTE | 2018-03-12 10:18 | PN ---
Progress Note (short form) - Note Progress Note: OOB to wheelchair. Appears comfortable. No acute events overnight. Intake & Output 03/09/18 03/10/18 03/11/18 03/12/18 23:59 23:59 23:59 23:59 Intake Total 1924 Balance 1924 Weight 144 lb Last Vital Signs Temp Pulse Resp BP Pulse Ox 97.7 F 80 18 130/86 98 03/12/18 06:00 03/12/18 06:00 03/12/18 06:00 03/12/18 06:00 03/11/18 21:00 Active Medications Acetaminophen (Tylenol -) 650 mg PO Q4H PRN PRN Reason: FEVER Albuterol Sulfate (Ventolin 0.083% Nebulizer Soln -) 1 amp NEB Q4H PRN PRN Reason: SHORT OF BREATH/WHEEZING Atorvastatin Calcium (Lipitor -) 20 mg PO HS [facility] Last Admin: 03/11/18 22:51 Dose: Not Given Gabapentin (Neurontin -) 300 mg PO TID [facility] Last Admin: 03/12/18 06:28 Dose: 300 mg Heparin Sodium (Porcine) (Heparin -) 5,000 unit SQ TID [facility] Last Admin: 03/12/18 06:28 Dose: 5,000 unit Sodium Chloride (Normal Saline -) 1,000 mls @ 75 mls/hr IV ASDIR [facility] Last Admin: 03/12/18 06:28 Dose: 75 mls/hr Piperacillin Sod/Tazobactam (Sod 3.375 gm/ Dextrose) 50 mls @ 100 mls/hr IVPB Q8H-IV [facility]; Protocol Last Admin: 03/12/18 09:50 Dose: 100 mls/hr Lorazepam (Ativan Injection -) 1 mg IVPUSH Q6H PRN PRN Reason: AGTATION Last Admin: 03/12/18 06:27 Dose: 1 mg Memantine (Namenda -) 5 mg PO BID [facility] Last Admin: 03/12/18 09:50 Dose: 5 mg Olanzapine 5 mg/ Olanzapine 2. (5 mg) 7.5 mg PO HS [facility] Vancomycin HCl (Vancomycin (Pre-Docked)) 1,000 mg IVPB DAILY [facility] Constitutional: Yes: No Distress, Thin Eyes: Yes: Conjunctiva Clear, EOM Intact HENT: Yes: Atraumatic, Normocephalic Neck: Yes: Supple, Trachea Midline Cardiovascular: Yes: Regular Rate and Rhythm Respiratory: Yes: Diminished. No: Accessory Muscle Use, Rales, Rhonchi, Stridor , Tachypnea, Wheezes ...Inspection: Yes: WNL ...Clubbing: No Gastrointestinal: Yes: Normal Bowel Sounds, Soft Renal/: Yes: WNL Musculoskeletal: Yes: WNL Extremities: Yes: WNL Edema: No Peripheral Pulses WNL: Yes Integumentary: Yes: WNL Neurological: Yes: Alert, Confusion Labs: Problem List - Problems (1) Diarrhea Code(s): R19.7 - DIARRHEA, UNSPECIFIED (2) Bronchitis Code(s): J40 - BRONCHITIS, NOT SPECIFIED ACUTE OR CHRONIC (3) Dementia Code(s): F03.90 - UNSPECIFIED DEMENTIA WITHOUT BEHAVIORAL DISTURBANCE Qualifiers: Dementia type: unspecified type Dementia behavioral disturbance: without behavioral disturbance Qualified Code(s): F03.90 - Unspecified dementia without behavioral disturbance (4) HLD (hyperlipidemia) Code(s): E78.5 - HYPERLIPIDEMIA, UNSPECIFIED (5) HTN (hypertension) Code(s): I10 - ESSENTIAL (PRIMARY) HYPERTENSION Assessment/Plan Do not suspect PNA: changes on CT are most likely atelectasis O2 as needed GI workup ongoing Aspiration precautions VTE prophylaxis BD TX PRN No indication for systemic steroids at this time Dr Brady Problem List - Problems (1) Diarrhea Code(s): R19.7 - DIARRHEA, UNSPECIFIED (2) Bronchitis Code(s): J40 - BRONCHITIS, NOT SPECIFIED ACUTE OR CHRONIC (3) Dementia Code(s): F03.90 - UNSPECIFIED DEMENTIA WITHOUT BEHAVIORAL DISTURBANCE Qualifiers: Dementia type: unspecified type Dementia behavioral disturbance: without behavioral disturbance Qualified Code(s): F03.90 - Unspecified dementia without behavioral disturbance (4) HLD (hyperlipidemia) Code(s): E78.5 - HYPERLIPIDEMIA, UNSPECIFIED (5) HTN (hypertension) Code(s): I10 - ESSENTIAL (PRIMARY) HYPERTENSION
[2018-03-12] MEDS: VANCOMYCIN 1 GRAM (PRE-DOCKED) 1,000 MG/250 ML BAG IVPB SCH (10:35)
--- NOTE | 2018-03-12 13:57 | PN ---
Progress Note, Physician History of Present Illness: stable still pulling out his iv line confused no fevers - Current Medication List Current Medications: Active Medications Acetaminophen (Tylenol -) 650 mg PO Q4H PRN PRN Reason: FEVER Albuterol Sulfate (Ventolin 0.083% Nebulizer Soln -) 1 amp NEB Q4H PRN PRN Reason: SHORT OF BREATH/WHEEZING Atorvastatin Calcium (Lipitor -) 20 mg PO [facility] Last Admin: 03/11/18 22:51 Dose: Not Given Gabapentin (Neurontin -) 300 mg PO TID [facility] Last Admin: 03/12/18 06:28 Dose: 300 mg Heparin Sodium (Porcine) (Heparin -) 5,000 unit SQ TID [facility] Last Admin: 03/12/18 06:28 Dose: 5,000 unit Sodium Chloride (Normal Saline -) 1,000 mls @ 75 mls/hr IV ASDIR [facility] Last Admin: 03/12/18 06:28 Dose: 75 mls/hr Piperacillin Sod/Tazobactam (Sod 3.375 gm/ Dextrose) 50 mls @ 100 mls/hr IVPB Q8H-IV [facility]; Protocol Last Admin: 03/12/18 09:50 Dose: 100 mls/hr Lorazepam (Ativan Injection -) 1 mg IVPUSH Q6H PRN PRN Reason: AGTATION Last Admin: 03/12/18 13:18 Dose: 1 mg Memantine (Namenda -) 5 mg PO BID [facility] Last Admin: 03/12/18 09:50 Dose: 5 mg Olanzapine 5 mg/ Olanzapine 2. (5 mg) 7.5 mg PO [facility] Vancomycin HCl (Vancomycin (Pre-Docked)) 1,000 mg IVPB DAILY [facility] Last Admin: 03/12/18 10:35 Dose: 1,000 mg - Objective Vital Signs: Vital Signs Temperature 98.2 F 03/12/18 10:00 Pulse Rate 80 03/12/18 10:00 Respiratory Rate 18 03/12/18 10:00 Blood Pressure 125/75 03/12/18 10:00 O2 Sat by Pulse Oximetry (%) 96 03/12/18 09:00 Constitutional: Yes: No Distress, Calm Cardiovascular: Yes: Regular Rate and Rhythm Respiratory: Yes: Regular, Poor Air Entry Gastrointestinal: Yes: Normal Bowel Sounds, Soft Musculoskeletal: Yes: WNL Extremities: Yes: WNL Neurological: Yes: Alert, Confusion Psychiatric: Yes: Other Labs: CBC, BMP 03/11/18 06:00 03/11/18 06:00 INR, PTT INR 1.16 (0.83-1.09) H 03/10/18 01:57 Assessment/Plan Problem List - Problems (1) Dementia Code(s): F03.90 - UNSPECIFIED DEMENTIA WITHOUT BEHAVIORAL DISTURBANCE Qualifiers: Dementia type: unspecified type Dementia behavioral disturbance: without behavioral disturbance Qualified Code(s): F03.90 - Unspecified dementia without behavioral disturbance (2) Fall Code(s): W19.XXXA - UNSPECIFIED FALL, INITIAL ENCOUNTER Qualifiers: Encounter type: initial encounter Qualified Code(s): W19.XXXA - Unspecified fall, initial encounter (3) HLD (hyperlipidemia) Code(s): E78.5 - HYPERLIPIDEMIA, UNSPECIFIED (4) Fever Code(s): R50.9 - FEVER, UNSPECIFIED (5) Myalgia Code(s): M79.10 - MYALGIA, UNSPECIFIED SITE (6) Diarrhea Code(s): R19.7 - DIARRHEA, UNSPECIFIED 7 bacteremia plan continue current abx will send repeat blood cx
[2018-03-12] MEDS ORDERED: PT OWN MED DRAWER 7, Y5N ONE (21:12)
[2018-03-12] MEDS: LATANOPROST 0.005% OPHTH SOLN 2.5ML BOTTLE OU SCH (22:04)
[2018-03-12] MEDS: ATORVASTATIN CA 20 MG TABLET (FP) PO SCH (22:04)
[2018-03-12] MEDS: OLANZAPINE 5 MG, OLANZAPINE 2.5 MG PO SCH (22:05)
[2018-03-13] MEDS: PIPERACILLIN/TAZOB 3.375 GM 3.375 GM in DEXTROSE 5%-WATER - 50 ML IVPB SCH ×3 (02:29→17:20)
[2018-03-13] MEDS: HEPARIN NA (PORCINE) 5,000 UNITS/ML 1ML VIAL SQ SCH ×3 (06:37→22:53)
[2018-03-13] MEDS: GABAPENTIN 300 MG CAPSULE (FP) PO SCH ×3 (06:38→22:54)
[2018-03-13] MEDS ORDERED: DEXTROSE 5%-WATER - 50 ML IVPB ONE ×2 (09:09→17:12)
[2018-03-13] MEDS ORDERED: PIPERACILLIN/TAZOBACTAM 3.375 GM VIAL IVPB ONE ×2 (09:09→17:11)
[2018-03-13] MEDS: MEMANTINE HCL 5 MG TABLET (UD) PO SCH ×2 (09:17→22:54)
[2018-03-13] MEDS: VANCOMYCIN 1 GRAM (PRE-DOCKED) 1,000 MG/250 ML BAG IVPB SCH (10:26)
--- NOTE | 2018-03-13 12:32 | PN ---
Progress Note, Physician History of Present Illness: continues to be confused no specific events - Current Medication List Current Medications: Active Medications Acetaminophen (Tylenol -) 650 mg PO Q4H PRN PRN Reason: FEVER Albuterol Sulfate (Ventolin 0.083% Nebulizer Soln -) 1 amp NEB Q4H PRN PRN Reason: SHORT OF BREATH/WHEEZING Last Admin: 03/13/18 08:25 Dose: 1 amp Atorvastatin Calcium (Lipitor -) 20 mg PO HS [facility] Last Admin: 03/12/18 22:04 Dose: 20 mg Gabapentin (Neurontin -) 300 mg PO TID [facility] Last Admin: 03/13/18 06:38 Dose: 300 mg Heparin Sodium (Porcine) (Heparin -) 5,000 unit SQ TID [facility] Last Admin: 03/13/18 06:37 Dose: 5,000 unit Piperacillin Sod/Tazobactam (Sod 3.375 gm/ Dextrose) 50 mls @ 100 mls/hr IVPB Q8H-IV [facility]; Protocol Last Admin: 03/13/18 09:18 Dose: 100 mls/hr Latanoprost (Xalatan 0.005% Eye Drops -) 1 drop OU HS [facility] Last Admin: 03/12/18 22:04 Dose: 1 drop Lorazepam (Ativan Injection -) 1 mg IVPUSH Q6H PRN PRN Reason: AGTATION Last Admin: 03/12/18 22:42 Dose: 1 mg Memantine (Namenda -) 5 mg PO BID [facility] Last Admin: 03/13/18 09:17 Dose: 5 mg Olanzapine 5 mg/ Olanzapine 2. (5 mg) 7.5 mg PO [facility] Last Admin: 03/12/18 22:05 Dose: 7.5 mg - Objective Vital Signs: Vital Signs Temperature 98.1 F 03/13/18 10:00 Pulse Rate 89 03/13/18 10:00 Respiratory Rate 18 03/13/18 10:00 Blood Pressure 120/77 03/13/18 10:00 O2 Sat by Pulse Oximetry (%) 96 03/13/18 09:00 Constitutional: Yes: Other Cardiovascular: Yes: Regular Rate and Rhythm Respiratory: Yes: Regular, Poor Air Entry Gastrointestinal: Yes: Normal Bowel Sounds, Soft Musculoskeletal: Yes: WNL Extremities: Yes: WNL Neurological: Yes: Other (confused) Labs: CBC, BMP 03/11/18 06:00 03/11/18 06:00 INR, PTT INR 1.16 (0.83-1.09) H 03/10/18 01:57 Assessment/Plan Problem List - Problems (1) Dementia Code(s): F03.90 - UNSPECIFIED DEMENTIA WITHOUT BEHAVIORAL DISTURBANCE Qualifiers: Dementia type: unspecified type Dementia behavioral disturbance: without behavioral disturbance Qualified Code(s): F03.90 - Unspecified dementia without behavioral disturbance (2) Fall Code(s): W19.XXXA - UNSPECIFIED FALL, INITIAL ENCOUNTER Qualifiers: Encounter type: initial encounter Qualified Code(s): W19.XXXA - Unspecified fall, initial encounter (3) HLD (hyperlipidemia) Code(s): E78.5 - HYPERLIPIDEMIA, UNSPECIFIED (4) Fever Code(s): R50.9 - FEVER, UNSPECIFIED (5) Myalgia Code(s): M79.10 - MYALGIA, UNSPECIFIED SITE (6) Diarrhea Code(s): R19.7 - DIARRHEA, UNSPECIFIED 7 bacteremia awaiting repeat cx cx report noted will stop vanco once we have repeat cx we will deescalate abx
--- NOTE | 2018-03-13 15:23 | PN ---
Progress Note, Physician History of Present Illness: pulmonary drowsy,confused,-resp distress - Current Medication List Current Medications: Active Medications Acetaminophen (Tylenol -) 650 mg PO Q4H PRN PRN Reason: FEVER Albuterol Sulfate (Ventolin 0.083% Nebulizer Soln -) 1 amp NEB Q4H PRN PRN Reason: SHORT OF BREATH/WHEEZING Last Admin: 03/13/18 08:25 Dose: 1 amp Atorvastatin Calcium (Lipitor -) 20 mg PO HS [facility] Last Admin: 03/12/18 22:04 Dose: 20 mg Gabapentin (Neurontin -) 300 mg PO TID [facility] Last Admin: 03/13/18 14:50 Dose: 300 mg Heparin Sodium (Porcine) (Heparin -) 5,000 unit SQ TID [facility] Last Admin: 03/13/18 14:50 Dose: 5,000 unit Piperacillin Sod/Tazobactam (Sod 3.375 gm/ Dextrose) 50 mls @ 100 mls/hr IVPB Q8H-IV [facility]; Protocol Last Admin: 03/13/18 09:18 Dose: 100 mls/hr Latanoprost (Xalatan 0.005% Eye Drops -) 1 drop OU HS [facility] Last Admin: 03/12/18 22:04 Dose: 1 drop Lorazepam (Ativan Injection -) 1 mg IVPUSH Q6H PRN PRN Reason: AGTATION Last Admin: 03/12/18 22:42 Dose: 1 mg Memantine (Namenda -) 5 mg PO BID [facility] Last Admin: 03/13/18 09:17 Dose: 5 mg Olanzapine 5 mg/ Olanzapine 2. (5 mg) 7.5 mg PO [facility] Last Admin: 03/12/18 22:05 Dose: 7.5 mg - Objective Vital Signs: Vital Signs Temperature 98.8 F 03/13/18 14:02 Pulse Rate 86 03/13/18 14:02 Respiratory Rate 18 03/13/18 14:02 Blood Pressure 121/68 03/13/18 14:02 O2 Sat by Pulse Oximetry (%) 96 03/13/18 09:00 Constitutional: Yes: Well Nourished, Other (drowsy) Eyes: Yes: WNL HENT: Yes: WNL Neck: Yes: WNL Cardiovascular: Yes: Regular Rate and Rhythm, S1, S2 Respiratory: Yes: Diminished Gastrointestinal: Yes: Normal Bowel Sounds, Soft Extremities: Yes: WNL Edema: No Labs: CBC, BMP Assessment/Plan Problem List - Problems (1) Diarrhea Code(s): R19.7 - DIARRHEA, UNSPECIFIED (2) Bronchitis Code(s): J40 - BRONCHITIS, NOT SPECIFIED ACUTE OR CHRONIC (3) Dementia Code(s): F03.90 - UNSPECIFIED DEMENTIA WITHOUT BEHAVIORAL DISTURBANCE Qualifiers: Dementia type: unspecified type Dementia behavioral disturbance: without behavioral disturbance Qualified Code(s): F03.90 - Unspecified dementia without behavioral disturbance (4) HLD (hyperlipidemia) Code(s): E78.5 - HYPERLIPIDEMIA, UNSPECIFIED (5) HTN (hypertension) Code(s): I10 - ESSENTIAL (PRIMARY) HYPERTENSION Assessment/Plan Do not suspect PNA: changes on CT are most likely atelectasis O2 as needed Aspiration precautions VTE prophylaxis BD TX PRN No indication for systemic steroids at this time Dr Ariza Problem List - Problems (1) Diarrhea Code(s): R19.7 - DIARRHEA, UNSPECIFIED (2) Bronchitis Code(s): J40 - BRONCHITIS, NOT SPECIFIED ACUTE OR CHRONIC (3) Dementia Code(s): F03.90 - UNSPECIFIED DEMENTIA WITHOUT BEHAVIORAL DISTURBANCE Qualifiers: Dementia type: unspecified type Dementia behavioral disturbance: without behavioral disturbance Qualified Code(s): F03.90 - Unspecified dementia without behavioral disturbance (4) HLD (hyperlipidemia) Code(s): E78.5 - HYPERLIPIDEMIA, UNSPECIFIED (5) HTN (hypertension) Code(s): I10 - ESSENTIAL (PRIMARY) HYPERTENSION
--- NOTE | 2018-03-13 16:10 | PN ---
Progress Note, Physician Chief Complaint: AWAKE IN WHEEL CHAIR NEXT TO NURSE'S STATION NAD CONFUSED - Current Medication List Current Medications: Active Medications Acetaminophen (Tylenol -) 650 mg PO Q4H PRN PRN Reason: FEVER Albuterol Sulfate (Ventolin 0.083% Nebulizer Soln -) 1 amp NEB Q4H PRN PRN Reason: SHORT OF BREATH/WHEEZING Last Admin: 03/13/18 08:25 Dose: 1 amp Atorvastatin Calcium (Lipitor -) 20 mg PO HS [facility] Last Admin: 03/12/18 22:04 Dose: 20 mg Gabapentin (Neurontin -) 300 mg PO TID [facility] Last Admin: 03/13/18 14:50 Dose: 300 mg Heparin Sodium (Porcine) (Heparin -) 5,000 unit SQ TID [facility] Last Admin: 03/13/18 14:50 Dose: 5,000 unit Piperacillin Sod/Tazobactam (Sod 3.375 gm/ Dextrose) 50 mls @ 100 mls/hr IVPB Q8H-IV [facility]; Protocol Last Admin: 03/13/18 09:18 Dose: 100 mls/hr Latanoprost (Xalatan 0.005% Eye Drops -) 1 drop OU HS [facility] Last Admin: 03/12/18 22:04 Dose: 1 drop Lorazepam (Ativan Injection -) 1 mg IVPUSH Q6H PRN PRN Reason: AGTATION Last Admin: 03/12/18 22:42 Dose: 1 mg Memantine (Namenda -) 5 mg PO BID [facility] Last Admin: 03/13/18 09:17 Dose: 5 mg Olanzapine 5 mg/ Olanzapine 2. (5 mg) 7.5 mg PO [facility] Last Admin: 03/12/18 22:05 Dose: 7.5 mg - Objective Vital Signs: Vital Signs Temperature 98.8 F 03/13/18 14:02 Pulse Rate 86 03/13/18 14:02 Respiratory Rate 18 03/13/18 14:02 Blood Pressure 121/68 03/13/18 14:02 O2 Sat by Pulse Oximetry (%) 96 03/13/18 09:00 Constitutional: Yes: No Distress Eyes: Yes: WNL HENT: Yes: WNL Neck: Yes: WNL Cardiovascular: Yes: WNL Respiratory: Yes: WNL Gastrointestinal: Yes: WNL Genitourinary: Yes: Incontinence Musculoskeletal: Yes: Muscle Weakness Extremities: Yes: WNL Edema: No Peripheral Pulses WNL: Yes Integumentary: Yes: WNL Wound/Incision: Yes: Clean/Dry Neurological: Yes: Confusion, Weakness ...Motor Strength: LLE, RLE Psychiatric: Yes: Other Labs: CBC, BMP 03/11/18 06:00 03/11/18 06:00 INR, PTT INR 1.16 (0.83-1.09) H 03/10/18 01:57 Problem List - Problems (1) Dementia Code(s): F03.90 - UNSPECIFIED DEMENTIA WITHOUT BEHAVIORAL DISTURBANCE Qualifiers: Dementia type: unspecified type Dementia behavioral disturbance: without behavioral disturbance Qualified Code(s): F03.90 - Unspecified dementia without behavioral disturbance (2) Fall Code(s): W19.XXXA - UNSPECIFIED FALL, INITIAL ENCOUNTER Qualifiers: Encounter type: initial encounter Qualified Code(s): W19.XXXA - Unspecified fall, initial encounter (3) HLD (hyperlipidemia) Code(s): E78.5 - HYPERLIPIDEMIA, UNSPECIFIED (4) Fever Code(s): R50.9 - FEVER, UNSPECIFIED (5) Myalgia Code(s): M79.10 - MYALGIA, UNSPECIFIED SITE (6) Diarrhea Code(s): R19.7 - DIARRHEA, UNSPECIFIED Assessment/Plan AWAITING CULTURES AND ID FOLLOW UP CAN CONTINUE RESTRAINTS FOR SAFETY DC PLANNING TO [facility] OR NURSING DEPENDING ON FAMILY REQUEST
[2018-03-13] MEDS ORDERED: PT OWN MED DRAWER 7, Y5N ONE (20:35)
[2018-03-13] MEDS: LORazepam 2 MG/ML SDV VIAL IVPUSH PRN (22:49)
[2018-03-13] MEDS: OLANZAPINE 5 MG, OLANZAPINE 2.5 MG PO SCH (22:54)
[2018-03-13] MEDS: LATANOPROST 0.005% OPHTH SOLN 2.5ML BOTTLE OU SCH (22:54)
[2018-03-13] MEDS: ATORVASTATIN CA 20 MG TABLET (FP) PO SCH (22:54)
[2018-03-14] MEDS ORDERED: PIPERACILLIN/TAZOBACTAM 3.375 GM VIAL IVPB ONE ×2 (02:56→09:00)
[2018-03-14] MEDS ORDERED: DEXTROSE 5%-WATER - 50 ML IVPB ONE ×2 (02:56→09:00)
[2018-03-14] MEDS: PIPERACILLIN/TAZOB 3.375 GM 3.375 GM in DEXTROSE 5%-WATER - 50 ML IVPB SCH ×2 (03:01→09:44)
[2018-03-14] MEDS: HEPARIN NA (PORCINE) 5,000 UNITS/ML 1ML VIAL SQ SCH ×3 (06:39→21:36)
[2018-03-14] MEDS: GABAPENTIN 300 MG CAPSULE (FP) PO SCH ×3 (06:39→21:36)
[2018-03-14 07:21] LABS: HEMATOCRIT 38.9 % (35.4-49); HEMOGLOBIN 12.7 GM/dL (11.7-16.9); MCH 30.8 pg (25.7-33.7); MCHC 32.8 g/dl (32.0-35.9); MEAN CELL VOLUME 94.2 fl (80-96); MEAN PLT VOLUME 9.4 fl (7.5-11.1); PLATELET COUNT 223 K/MM3 (134-434); RBC 4.13 M/mm3 (4.00-5.60); RDW 14.7 % (11.9-15.9); WHITE BLOOD COUNT 11.4 K/mm3 (4.0-10.0)
[2018-03-14 07:59] LABS: ANION GAP 9 MMOL/L (8-16); BLOOD UREA NITROGEN 7 mg/dL (7-18); CHLORIDE 108 mmol/L (98-107); CO2 29 mmol/L (21-32); CREATININE 0.7 mg/dL (0.55-1.3); GLUCOSE,RANDOM 77 mg/dL (74-106); POTASSIUM 3.5 mmol/L (3.5-5.1); SODIUM 146 mmol/L (136-145)
[2018-03-14] MEDS: MEMANTINE HCL 5 MG TABLET (UD) PO SCH ×2 (09:45→21:36)
--- NOTE | 2018-03-14 10:39 | PN ---
Progress Note (short form) - Note Progress Note: Resting in bed in NAD. Appears comfortable on RA. No acute events overnight. Intake & Output 03/11/18 03/12/18 03/13/18 03/14/18 23:59 23:59 23:59 23:59 Intake Total 1924 1125 500 50 Balance 1924 1125 500 50 Last Vital Signs Temp Pulse Resp BP Pulse Ox 98.4 F 102 H 20 136/80 96 03/14/18 05:58 03/14/18 05:58 03/14/18 05:58 03/14/18 05:58 03/13/18 21:00 Active Medications Acetaminophen (Tylenol -) 650 mg PO Q4H PRN PRN Reason: FEVER Albuterol Sulfate (Ventolin 0.083% Nebulizer Soln -) 1 amp NEB Q4H PRN PRN Reason: SHORT OF BREATH/WHEEZING Last Admin: 03/13/18 08:25 Dose: 1 amp Atorvastatin Calcium (Lipitor -) 20 mg PO HS [facility] Last Admin: 03/13/18 22:54 Dose: 20 mg Gabapentin (Neurontin -) 300 mg PO TID [facility] Last Admin: 03/14/18 06:39 Dose: 300 mg Heparin Sodium (Porcine) (Heparin -) 5,000 unit SQ TID [facility] Last Admin: 03/14/18 06:39 Dose: 5,000 unit Piperacillin Sod/Tazobactam (Sod 3.375 gm/ Dextrose) 50 mls @ 100 mls/hr IVPB Q8H-IV [facility]; Protocol Last Admin: 03/14/18 09:44 Dose: 100 mls/hr Latanoprost (Xalatan 0.005% Eye Drops -) 1 drop OU HS [facility] Last Admin: 03/13/18 22:54 Dose: 1 drop Lorazepam (Ativan Injection -) 1 mg IVPUSH Q6H PRN PRN Reason: AGTATION Last Admin: 03/13/18 22:49 Dose: 1 mg Memantine (Namenda -) 5 mg PO BID [facility] Last Admin: 03/14/18 09:45 Dose: 5 mg Olanzapine 5 mg/ Olanzapine 2. (5 mg) 7.5 mg PO HS [facility] Last Admin: 03/13/18 22:54 Dose: 7.5 mg Constitutional: Yes: No Distress, Thin Eyes: Yes: Conjunctiva Clear, EOM Intact HENT: Yes: Atraumatic, Normocephalic Neck: Yes: Supple, Trachea Midline Cardiovascular: Yes: Regular Rate and Rhythm Respiratory: Yes: Diminished. No: Accessory Muscle Use, Rales, Rhonchi, Stridor , Tachypnea, Wheezes ...Inspection: Yes: WNL ...Clubbing: No Gastrointestinal: Yes: Normal Bowel Sounds, Soft Renal/: Yes: WNL Musculoskeletal: Yes: WNL Extremities: Yes: WNL Edema: No Peripheral Pulses WNL: Yes Integumentary: Yes: WNL Neurological: Yes: Alert, Confusion Labs: Laboratory Results - last 24 hr 03/10/18 03/14/18 03/14/18 22:45 06:15 06:15 WBC 11.4 H RBC 4.13 Hgb 12.7 Hct 38.9 MCV 94.2 MCH 30.8 MCHC 32.8 RDW 14.7 Plt Count 223 D MPV 9.4 Sodium 146 H Potassium 3.5 Chloride 108 H Carbon Dioxide 29 Anion Gap 9 BUN 7 Creatinine 0.7 Creat Clearance w eGFR > 60 Random Glucose 77 Calcium 9.0 Stool O & P Wet [place] & P Permanent Slide Final report Problem List - Problems (1) Diarrhea Code(s): R19.7 - DIARRHEA, UNSPECIFIED (2) Bronchitis Code(s): J40 - BRONCHITIS, NOT SPECIFIED ACUTE OR CHRONIC (3) Dementia Code(s): F03.90 - UNSPECIFIED DEMENTIA WITHOUT BEHAVIORAL DISTURBANCE Qualifiers: Dementia type: unspecified type Dementia behavioral disturbance: without behavioral disturbance Qualified Code(s): F03.90 - Unspecified dementia without behavioral disturbance (4) HLD (hyperlipidemia) Code(s): E78.5 - HYPERLIPIDEMIA, UNSPECIFIED (5) HTN (hypertension) Code(s): I10 - ESSENTIAL (PRIMARY) HYPERTENSION Assessment/Plan Do not suspect PNA: changes on CT are most likely atelectasis O2 as needed Aspiration precautions VTE prophylaxis BD TX PRN No indication for systemic steroids at this time Dr Brady Problem List - Problems (1) Diarrhea Code(s): R19.7 - DIARRHEA, UNSPECIFIED (2) Bronchitis Code(s): J40 - BRONCHITIS, NOT SPECIFIED ACUTE OR CHRONIC (3) Dementia Code(s): F03.90 - UNSPECIFIED DEMENTIA WITHOUT BEHAVIORAL DISTURBANCE Qualifiers: Dementia type: unspecified type Dementia behavioral disturbance: without behavioral disturbance Qualified Code(s): F03.90 - Unspecified dementia without behavioral disturbance (4) HLD (hyperlipidemia) Code(s): E78.5 - HYPERLIPIDEMIA, UNSPECIFIED (5) HTN (hypertension) Code(s): I10 - ESSENTIAL (PRIMARY) HYPERTENSION
--- NOTE | 2018-03-14 10:58 | DS ---
Physical Examination Vital Signs: Vital Signs Temperature 98.4 F 03/14/18 05:58 Pulse Rate 102 H 03/14/18 05:58 Respiratory Rate 20 03/14/18 05:58 Blood Pressure 136/80 03/14/18 05:58 O2 Sat by Pulse Oximetry (%) 96 03/13/18 21:00 Findings/Remarks: FEELING MUCH BETTER, MORE ALERT Constitutional: Yes: No Distress Eyes: Yes: WNL HENT: Yes: WNL Neck: Yes: WNL Cardiovascular: Yes: WNL Respiratory: Yes: WNL Gastrointestinal: Yes: WNL Renal/: Yes: Incontinence Musculoskeletal: Yes: Muscle Weakness Extremities: Yes: WNL Edema: No Peripheral Pulses WNL: Yes Integumentary: Yes: WNL Wound/Incision: Yes: Clean/Dry Neurological: Yes: Confusion ...Motor Strength: LLE, RLE Psychiatric: Yes: Other Labs: CBC, BMP 03/14/18 06:15 03/14/18 06:15 Discharge Summary Reason For Visit: PNEUMONIA Current Active Problems Diarrhea (Acute) Fever (Acute) Myalgia (Acute) PNA (pneumonia) (Acute) Urinary retention (Acute) Procedures: Principal: CT SCAN/LABS Hospital Course: ADMITTED WITH ACUTE TOXIC METABOLIC ENCEPHALOPATHY, AMS, UROSEPSIS, TREATED IV ABX, FEELING MUCH BETTER Condition: Improved - Instructions Diet, Activity, Other Instructions: SOFT TOLERATED Referrals: Ed Galo MD [Primary Care Provider] - Disposition: [facility] - Home Medications Comprehensive Discharge Medication List: Ambulatory Orders Alprazolam 1 mg PO DAILY PRN 04/03/17 Paroxetine HCl 10 mg PO DAILY 04/03/17 Simvastatin 40 mg PO DAILY 04/03/17 Donepezil HCl 10 mg PO HS 07/15/17 Gabapentin 300 mg PO TID 07/15/17 Memantine HCl [Namenda -] 5 mg PO BID 07/15/17 Latanoprost 0.005% Eye Drops [Xalatan 0.005% Eye Drops -] 1 drop HS 03/10/18 traZODone HCL [Trazodone HCl] 50 mg PO DAILY 03/10/18
[2018-03-14] MEDS: ACETAMINOPHEN 325 MG TABLET (FP) PO PRN ×2 (11:34→21:48)
--- NOTE | 2018-03-14 14:57 | PN ---
Progress Note, Physician History of Present Illness: stable calm no distress all cx report noted more awake and alert - Current Medication List Current Medications: Active Medications Acetaminophen (Tylenol -) 650 mg PO Q4H PRN PRN Reason: FEVER Last Admin: 03/14/18 11:34 Dose: 650 mg Albuterol Sulfate (Ventolin 0.083% Nebulizer Soln -) 1 amp NEB Q4H PRN PRN Reason: SHORT OF BREATH/WHEEZING Last Admin: 03/13/18 08:25 Dose: 1 amp Atorvastatin Calcium (Lipitor -) 20 mg PO [facility] Last Admin: 03/13/18 22:54 Dose: 20 mg Gabapentin (Neurontin -) 300 mg PO TID [facility] Last Admin: 03/14/18 06:39 Dose: 300 mg Heparin Sodium (Porcine) (Heparin -) 5,000 unit SQ TID [facility] Last Admin: 03/14/18 06:39 Dose: 5,000 unit Latanoprost (Xalatan 0.005% Eye Drops -) 1 drop OU [facility] Last Admin: 03/13/18 22:54 Dose: 1 drop Lorazepam (Ativan Injection -) 1 mg IVPUSH Q6H PRN PRN Reason: AGTATION Last Admin: 03/13/18 22:49 Dose: 1 mg Memantine (Namenda -) 5 mg PO BID [facility] Last Admin: 03/14/18 09:45 Dose: 5 mg Olanzapine 5 mg/ Olanzapine 2. (5 mg) 7.5 mg PO [facility] Last Admin: 03/13/18 22:54 Dose: 7.5 mg - Objective Vital Signs: Vital Signs Temperature 98.1 F 03/14/18 13:27 Pulse Rate 82 03/14/18 13:27 Respiratory Rate 20 03/14/18 13:27 Blood Pressure 105/78 03/14/18 13:27 O2 Sat by Pulse Oximetry (%) 96 03/13/18 21:00 Constitutional: Yes: No Distress, Calm Cardiovascular: Yes: Regular Rate and Rhythm Respiratory: Yes: Regular, CTA Bilaterally Gastrointestinal: Yes: Normal Bowel Sounds, Soft Musculoskeletal: Yes: WNL Extremities: Yes: WNL Neurological: Yes: Alert Psychiatric: Yes: Alert Labs: CBC, BMP 03/14/18 06:15 03/14/18 06:15 INR, PTT INR 1.16 (0.83-1.09) H 03/10/18 01:57 Assessment/Plan Problem List - Problems (1) Dementia Code(s): F03.90 - UNSPECIFIED DEMENTIA WITHOUT BEHAVIORAL DISTURBANCE Qualifiers: Dementia type: unspecified type Dementia behavioral disturbance: without behavioral disturbance Qualified Code(s): F03.90 - Unspecified dementia without behavioral disturbance (2) Fall Code(s): W19.XXXA - UNSPECIFIED FALL, INITIAL ENCOUNTER Qualifiers: Encounter type: initial encounter Qualified Code(s): W19.XXXA - Unspecified fall, initial encounter (3) HLD (hyperlipidemia) Code(s): E78.5 - HYPERLIPIDEMIA, UNSPECIFIED (4) Fever Code(s): R50.9 - FEVER, UNSPECIFIED (5) Myalgia Code(s): M79.10 - MYALGIA, UNSPECIFIED SITE (6) Diarrhea Code(s): R19.7 - DIARRHEA, UNSPECIFIED 7 bacteremia plan stopped all abx continue to monitor rest as per the tem patient doing well much more awake and alert
[2018-03-14] MEDS: LORazepam 2 MG/ML SDV VIAL IVPUSH PRN ×2 (15:11→21:37)
[2018-03-14] MEDS ORDERED: PT OWN MED DRAWER 7, Y5N ONE (21:33)
[2018-03-14] MEDS: ATORVASTATIN CA 20 MG TABLET (FP) PO SCH (21:36)
[2018-03-14] MEDS: LATANOPROST 0.005% OPHTH SOLN 2.5ML BOTTLE OU SCH (21:37)
[2018-03-14] MEDS: OLANZAPINE 5 MG, OLANZAPINE 2.5 MG PO SCH (22:56)
[2018-03-15] MEDS: HEPARIN NA (PORCINE) 5,000 UNITS/ML 1ML VIAL SQ SCH ×2 (06:34→15:11)
[2018-03-15] MEDS: GABAPENTIN 300 MG CAPSULE (FP) PO SCH ×2 (06:35→15:00)
[2018-03-15] MEDS: LORazepam 2 MG/ML SDV VIAL IVPUSH PRN ×2 (08:43→14:30)
[2018-03-15] MEDS: MEMANTINE HCL 5 MG TABLET (UD) PO SCH (09:29)
--- NOTE | 2018-03-15 12:22 | PN ---
Progress Note, Physician History of Present Illness: stable no new issues awaiting for placement - Current Medication List Current Medications: Active Medications Acetaminophen (Tylenol -) 650 mg PO Q4H PRN PRN Reason: FEVER Last Admin: 03/14/18 21:48 Dose: 650 mg Albuterol Sulfate (Ventolin 0.083% Nebulizer Soln -) 1 amp NEB Q4H PRN PRN Reason: SHORT OF BREATH/WHEEZING Last Admin: 03/13/18 08:25 Dose: 1 amp Atorvastatin Calcium (Lipitor -) 20 mg PO [facility] Last Admin: 03/14/18 21:36 Dose: 20 mg Gabapentin (Neurontin -) 300 mg PO TID [facility] Last Admin: 03/15/18 06:35 Dose: 300 mg Heparin Sodium (Porcine) (Heparin -) 5,000 unit SQ TID [facility] Last Admin: 03/15/18 06:34 Dose: 5,000 unit Latanoprost (Xalatan 0.005% Eye Drops -) 1 drop OU [facility] Last Admin: 03/14/18 21:37 Dose: Not Given Lorazepam (Ativan Injection -) 1 mg IVPUSH Q6H PRN PRN Reason: AGTATION Last Admin: 03/15/18 08:43 Dose: 1 mg Memantine (Namenda -) 5 mg PO BID [facility] Last Admin: 03/15/18 09:29 Dose: 5 mg Olanzapine 5 mg/ Olanzapine 2. (5 mg) 7.5 mg PO [facility] Last Admin: 03/14/18 22:56 Dose: 7.5 mg - Objective Vital Signs: Vital Signs Temperature 98.7 F 03/15/18 08:50 Pulse Rate 104 H 03/15/18 08:50 Respiratory Rate 18 03/15/18 08:50 Blood Pressure 116/69 03/15/18 08:50 O2 Sat by Pulse Oximetry (%) 97 03/15/18 09:00 Constitutional: Yes: No Distress, Calm Cardiovascular: Yes: Regular Rate and Rhythm Respiratory: Yes: Regular, CTA Bilaterally Gastrointestinal: Yes: Normal Bowel Sounds, Soft Musculoskeletal: Yes: WNL Extremities: Yes: WNL Wound/Incision: Yes: Well Approximated Neurological: Yes: Alert, Oriented Psychiatric: Yes: Alert, Oriented Labs: CBC, BMP 03/14/18 06:15 03/14/18 06:15 INR, PTT INR 1.16 (0.83-1.09) H 03/10/18 01:57 Assessment/Plan Problem List - Problems (1) Dementia Code(s): F03.90 - UNSPECIFIED DEMENTIA WITHOUT BEHAVIORAL DISTURBANCE Qualifiers: Dementia type: unspecified type Dementia behavioral disturbance: without behavioral disturbance Qualified Code(s): F03.90 - Unspecified dementia without behavioral disturbance (2) Fall Code(s): W19.XXXA - UNSPECIFIED FALL, INITIAL ENCOUNTER Qualifiers: Encounter type: initial encounter Qualified Code(s): W19.XXXA - Unspecified fall, initial encounter (3) HLD (hyperlipidemia) Code(s): E78.5 - HYPERLIPIDEMIA, UNSPECIFIED (4) Fever Code(s): R50.9 - FEVER, UNSPECIFIED (5) Myalgia Code(s): M79.10 - MYALGIA, UNSPECIFIED SITE (6) Diarrhea Code(s): R19.7 - DIARRHEA, UNSPECIFIED 7 bacteremia plan stopped all abx continue to monitor rest as per the tem patient doing well awake and alert
[2018-03-15 16:35] VITALS: BP 113/72; PULSE 110; TEMP 98
--- NOTE | 2018-03-19 14:09 | PN ---
Progress Note (short form) - Note Progress Note: ADDENDUM DX : PATIENT HAD ACUTE BRONCHITIS, POOR APPETITE WITH ACUTE TOXIC METABOLIC ENCEPHALOPATHY Problem List - Problems (1) Dementia Code(s): F03.90 - UNSPECIFIED DEMENTIA WITHOUT BEHAVIORAL DISTURBANCE Qualifiers: Dementia type: unspecified type Dementia behavioral disturbance: without behavioral disturbance Qualified Code(s): F03.90 - Unspecified dementia without behavioral disturbance (2) Fall Code(s): W19.XXXA - UNSPECIFIED FALL, INITIAL ENCOUNTER Qualifiers: Encounter type: initial encounter Qualified Code(s): W19.XXXA - Unspecified fall, initial encounter (3) HLD (hyperlipidemia) Code(s): E78.5 - HYPERLIPIDEMIA, UNSPECIFIED (4) Fever Code(s): R50.9 - FEVER, UNSPECIFIED (5) Myalgia Code(s): M79.10 - MYALGIA, UNSPECIFIED SITE (6) Diarrhea Code(s): R19.7 - DIARRHEA, UNSPECIFIED
== END 2018-03-15 16:54 | DRG 202 ==
LOC: JER 00:26 → JERBED 02:43 → OBSVTOIN 03:41 → J7W 20:24
PROVIDERS: ADMIT Internal Medicine; ATTEND Family Medicine
DX: J20.9 Acute bronchitis, unspecified (principal); G92 Toxic encephalopathy; J98.11 Atelectasis; R78.81 Bacteremia; F02.81 Dementia in other diseases classified elsewhere, unspecified severity, with behavioral disturbance; G30.9 Alzheimer's disease, unspecified; I10 Essential (primary) hypertension; E78.5 Hyperlipidemia, unspecified; F32.9 Major depressive disorder, single episode, unspecified; F41.9 Anxiety disorder, unspecified; R19.7 Diarrhea, unspecified; R33.9 Retention of urine, unspecified; D72.1 Eosinophilia; M79.10 Myalgia, unspecified site
CPT/HCPCS: 36415; 36600; 71045-TC-FY; 74176-TC; 80048; 80053; 81003; 82803; 83605; 85025; 85027; 85610; 85730; 86632; 86850; 86900; 86901; 87040; 87070; 87086; 87177; 87186; 87205; 87209; 87324; 87449; 87804; 93005; 93010; 97116-GP; 97161-GP; 99285-25; G0378; J1644; J7030

== ENCOUNTER 2018-06-06 08:06 | Inpatient (IN) | payer OTHER ==
--- NOTE | 2018-06-06 09:46 | PDOC ---
History of Present Illness - General Chief Complaint: Cold Symptoms Stated Complaint: FEVER Time Seen by Provider: 06/06/18 08:46 History Source: Family Exam Limitations: Clinical Condition, Dementia - History of Present Illness Initial Comments: 06/06/18 10:00 Patient is an 83 year old male with a PMHx of Depression, Alzheimers dementia, HTN, HLD who presents here today for subjective fevers, chills, rigors, myalgia and a nonproductive cough for the past two days. Patient is poor historian and all history taken from and family at bedside. According to patients , she was sick with similar symptoms this past week and patient has been around her. States his cough sounds productive but no phlegm is produced. Patient overnight and this morning started experiencing worsening rigors, which prompted this hospital visit. When speaking to the family and questioning the patient, he does endorse some chest irritation that is worse when he coughs. Patient's niece also reports some shortness of breath in the last couple of days , making it harder for him to ambulate. Otherwise, patient denies any nausea, vomiting, diarrhea, headaches, loss of consciousness, palpitations, dizziness, acute vision changes, dysuria, frequency, hematuria, melena, hematochezia, hematemesis, hemoptysis. Denies any recent travel Has been around sick contacts- his with similar symptoms PCP: Dr. Ed Galo PMHx: HTN HLD Alzheimers Dementia Depression PSHx: Denies Social History: (per niece) Smoking: Never Alcohol: none Drugs: None Lives with From [place] Allergies: NKDA Past History - Past Medical History Allergies/Adverse Reactions: Allergies Allergy/AdvReac Type Severity Reaction Status Date / Time No Known Allergies Allergy Verified 06/06/18 08:08 Home Medications: Ambulatory Orders Paroxetine HCl 10 mg PO DAILY 04/03/17 Simvastatin 40 mg PO DAILY 04/03/17 Gabapentin 300 mg PO TID 07/15/17 Memantine HCl [Namenda -] 5 mg PO BID 07/15/17 Latanoprost 0.005% Eye Drops [Xalatan 0.005% Eye Drops -] 1 drop HS 03/10/18 traZODone HCL [Trazodone HCl] 50 mg PO DAILY 03/10/18 Acetaminophen [Tylenol .Regular Strength -] 650 mg PO Q4H PRN tablet 03/14/18 Albuterol 0.083% Nebulizer Roxann [Ventolin 0.083% Nebulizer Soln -] 1 amp NEB Q4H PRN amp 03/14/18 Olanzapine [Zyprexa -] 7.5 mg PO HS tablet 03/14/18 COPD: No CHF: No Dementia: Yes Hypercholesterolemia: Yes Psychiatric Problems: Yes (Depression, anxiety) - Surgical History Neurologic Surgery: Yes (NECK SURGERY, BILAT SHOULDER) - Immunization History Immunization Up to Date: Yes - Suicide/Smoking/Psychosocial Hx Smoking History: Never smoked Have you smoked in the past 12 months: No If you are a former smoker, when did you quit?: 10 yrs ago Hx Alcohol Use: No Drug/Substance Use Hx: No Substance Use Type: None Review of Systems - Review of Systems Able to Perform ROS?: No *Physical Exam - Vital Signs Last Vital Signs Temp Pulse Resp BP Pulse Ox 98.9 F 96 H 20 95/70 96 06/06/18 08:08 06/06/18 08:08 06/06/18 08:08 06/06/18 08:08 06/06/18 08:08 - Physical Exam General Appearance: Yes: Other (Awake, alert, ill looking, oriented to self only , in no acute distress ) HEENT: positive: EOMI, DELGADO, Symmetrical, Nasal Congestion. negative: Tonsillar Exudate, Tonsillar Erythema, Rhinorrhea, Sinus Tenderness Neck: positive: Supple. negative: Carotid bruit, Decreased range of motion, Lymphadenopathy (R), Lymphadenopathy (L) Respiratory/Chest: positive: Other (Poor respiratory effort, Decreased breath sounds throughout lung bases) Cardiovascular: positive: Regular Rhythm, Regular Rate. negative: S1, S2, Edema , JVD Gastrointestinal/Abdominal: positive: Other (Soft, nontender, protruded, normoactive bowel sounds, no guarding or rebound tenderness ) Extremity: positive: Normal Capillary Refill, Normal Inspection, Normal Range of Motion. negative: Swelling, Calf Tenderness, Erythema Integumentary: positive: Normal Color, Dry, Warm. 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 handler II-XII NML intact, Alert, Normal Response, Motor Strength 5/5 Moderate Sedation - Procedure Monitoring Vital Signs: Procedure Monitoring Vital Signs Temperature 98.9 F 06/06/18 08:08 Pulse Rate 96 H 06/06/18 08:08 Respiratory Rate 20 06/06/18 08:08 Blood Pressure 95/70 06/06/18 08:08 O2 Sat by Pulse Oximetry (%) 96 06/06/18 08:08 ED Treatment Course - LABORATORY CBC & Chemistry Diagram: 06/06/18 09:55 06/06/18 09:55 Medical Decision Making - Medical Decision Making 06/06/18 10:13 Patient is an 83 year old male with PMHx of Alzheimer's dementia, depression, HTN, HLD who presents here for cold-like symptoms, fevers, chills, rigors with sepsis picture. -Septic workup- CBC, CMP, CARDIAC, LACTIC, -U/A, urinalysis -EKG -CXR -Blood and urine cultures -IV Fluids -Tylenol -Abx 06/06/18 10:49 -Labs revealed leukocytosis >14 -Requires 3L of NC and now saturating at 98% -Influenza negative -Vanc/Zosyn given -EKG sinus rhythm with first degree AV block @76BPM -CXR -Will make call out to Dr. Beckman for admission 06/06/18 11:01 -Spoke to Dr. Medina who accepts patient to med/surg under Dr. Beckman *DC/Admit/Observation/Transfer Diagnosis at time of Disposition: Sepsis Qualifiers: Sepsis type: sepsis due to unspecified organism Qualified Code(s): A41.9 - Sepsis, unspecified organism - Discharge Dispostion Decision to Admit order: Yes - Referrals - Patient Instructions - Post Discharge Activity
[2018-06-06] MEDS ORDERED: ACETAMINOPHEN 325 MG TABLET (FP) PO ONE (09:49)
[2018-06-06] MEDS ORDERED: SODIUM CHLORIDE 500 ML IV STA (09:59)
[2018-06-06] MEDS ORDERED: ACETAMINOPHEN 325 MG TABLET (FP) ONE (10:04)
[2018-06-06 10:06] LABS: VENOUS PC02 45.7 mmHg (38-52); VENOUS PH 7.4 (7.32-7.42); VENOUS PO2 46.9 mmHg (28-48)
--- NOTE | 2018-06-06 10:12 | PDOC ---
Attending Attestation - HPI HPI: 06/06/18 10:35 The patient is a 83 year old male, accompanied by and family, with a significant PMH of depression, Alzheimers dementia, hypertension, hyperlipidemia, who presents to the emergency department with 2 days of subjective fevers, chills, body aches and non productive cough. As per patients , she was sick with similar symptoms this past week. As per patients family , the patient has had worsening rigors overnight which prompted the ED visit. They also reports the patient has had worsening shortness of breath over the past few days and endorses chest irritation worsened when coughing. The patient denies headache and dizziness. Denies nausea, vomit, diarrhea and constipation. Denies dysuria, frequency, urgency and hematuria. Allergies: NKA Documentation prepared by Jairo Davidson, acting as medical accounting clerk for Romulo Knapp MD. - Physicial Exam PE: 06/06/18 10:54 Vitals: Triage Vital signs reviewed General Appearance: no acute distress, well nourished well developed, Neck: Supple;No Nuchal rigidity Chest Wall: Nontender Cardiac: Regular rate and rhythm, no murmurs, no rubs, no gallops, Lungs: Clear to auscultation bilateral, good air movement bilaterally, Abdomen: Soft, nondistended, normal bowel sounds, nontender to palpation Rectal: Exam deferred Extremities: Full range of motion to all extremities, no cyanosis, clubbing, or edema Skin: Warm and dry, no rashes or lesions, no petechiae Psych: normal mood, normal affect <Jairo Davidson - Last Filed: 06/06/18 10:54> - Resident Resident Name: Tawana Arthur - ED Attending Attestation I have performed the following: I have examined & evaluated the patient, The case was reviewed & discussed with the resident, I agree w/resident's findings & plan, Exceptions are as noted - Medical Decision Making 06/06/18 14:40 History examination consistent with clinical pneumonia versus viral URI URI given fever respiratory tachypnea in an elderly patient with multiple comorbidities we'll observe overnight in the hospital for IV antibiotics and further management. <Romulo Knapp - Last Filed: 06/06/18 14:40> Heart Score/ECG Review - ECG Impressions Comment:: 06/06/18 14:40 EKG performed at 911 demonstrates sinus rhythm [address] elevations or T- wave inversions left axis deviation Interpreted by me. <Romulo Knapp - Last Filed: 06/06/18 14:40>
[2018-06-06 10:20] LABS: BASO % 0.5 % (0-2.0); EOS % 5.1 % (0-4.5); HEMATOCRIT 36.8 % (35.4-49); HEMOGLOBIN 11.8 GM/dL (11.7-16.9); MCH 29.9 pg (25.7-33.7); MCHC 32.1 g/dl (32.0-35.9); MEAN CELL VOLUME 93.3 fl (80-96); MEAN PLT VOLUME 8.8 fl (7.5-11.1); MONO % 9.1 % (3.8-10.2); NEUT % 75.3 % (42.8-82.8); PLATELET COUNT 128 K/MM3 (134-434); RBC 3.95 M/mm3 (4.00-5.60); RDW 15.4 % (11.9-15.9); WHITE BLOOD COUNT 14.8 K/mm3 (4.0-10.0)
[2018-06-06] MEDS ORDERED: SODIUM CHLORIDE 1,000 ML IV STA (10:29)
[2018-06-06 10:39] LABS: ALBUMIN 3.9 g/dl (3.4-5.0); ALK PHOS 82 U/L (45-117); ANION GAP 9 MMOL/L (8-16); BILIRUBIN,TOTAL 0.6 mg/dL (0.2-1); BLOOD UREA NITROGEN 11 mg/dL (7-18); CALCIUM 8.4 mg/dL (8.5-10.1); CHLORIDE 105 mmol/L (98-107); CO2 27 mmol/L (21-32); CREATININE 0.9 mg/dL (0.55-1.3); GLUCOSE,RANDOM 72 mg/dL (74-106); POTASSIUM 3.9 mmol/L (3.5-5.1); SGOT/AST 21 U/L (15-37); SGPT/ALT 18 U/L (13-61); SODIUM 141 mmol/L (136-145); TOT PROT 6.9 g/dl (6.4-8.2)
[2018-06-06] MEDS ORDERED: PIPERACILLIN/TAZOB 3.375 GM 3.375 GM in DEXTROSE 5%-WATER - 50 ML IVPB ONE (10:41)
[2018-06-06] MEDS ORDERED: VANCOMYCIN 1,000 MG in DEXTROSE 5%-WATER - 250 ML IVPB ONE (10:41)
[2018-06-06] MEDS ORDERED: PIPERACILLIN/TAZOB 3.375 GM 3.375 GM/50 ML BAG IVPB ONE (10:48)
[2018-06-06] MEDS ORDERED: VANCOMYCIN 1 GRAM (PRE-DOCKED) 1,000 MG/250 ML BAG IVPB ONE (10:48)
[2018-06-06 10:59] LABS: INR 1.22 (0.83-1.09); PROTHROMBIN TIME (PATIENT) 14.4 SEC (9.7-13.0)
[2018-06-06 11:01] LABS: ACTIVATED PTT 32.9 SECONDS (25.2-36.5)
[2018-06-06 12:28] LABS: URINE APPEARANCE CLEAR; URINE BILIRUBIN NEGATIVE (<2.0 mg/dL); URINE COLOR LTYELLOW; URINE GLUCOSE (UA) NEGATIVE (NEGATIVE); URINE KETONE NEGATIVE (NEGATIVE); URINE LEUK ESTERASE NEGATIVE (NEGATIVE); URINE NITRITE NEGATIVE (NEGATIVE); URINE PROTEIN NEGATIVE (NEGATIVE); URINE UROBILINOGEN NEGATIVE mg/dL (0.2-1.0)
[2018-06-06 13:01] VITALS: BMI 30.7
--- NOTE | 2018-06-06 13:18 | HP ---
Admitting History and Physical - Primary Care Physician PCP: Ed Galo - Admission Chief Complaint: cough fever and rigors for 2 days History of Present Illness: Patient is an 83 year old male with a PMHx of Depression, Alzheimers dementia, HTN, HLD who presents here today for subjective fevers, chills, rigors, myalgia and a nonproductive cough for the past two days. Patient is poor historian and all history taken from and family at bedside. According to patients , she was sick with similar symptoms this past week and patient has been around her. States his cough sounds productive but no phlegm is produced. Patient overnight and this morning started experiencing worsening rigors, which prompted this hospital visit. 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 Cardiovascular: Yes: HTN, Hyperlipdemia - Smoking History Smoking history: Never smoked Have you smoked in the past 12 months: No If you are a former smoker, when did you quit?: 10 yrs ago - Alcohol/Substance Use Hx Alcohol Use: No Home Medications - Allergies Allergies/Adverse Reactions: Allergies Allergy/AdvReac Type Severity Reaction Status Date / Time No Known Allergies Allergy Verified 06/06/18 08:08 - Home Medications Home Medications: Ambulatory Orders Paroxetine HCl 10 mg PO DAILY 04/03/17 Simvastatin 40 mg PO DAILY 04/03/17 Gabapentin 300 mg PO TID 07/15/17 Memantine HCl [Namenda -] 5 mg PO BID 07/15/17 Latanoprost 0.005% Eye Drops [Xalatan 0.005% Eye Drops -] 1 drop HS 03/10/18 traZODone HCL [Trazodone HCl] 50 mg PO DAILY 03/10/18 Acetaminophen [Tylenol .Regular Strength -] 650 mg PO Q4H PRN tablet 03/14/18 Albuterol 0.083% Nebulizer Roxann [Ventolin 0.083% Nebulizer Soln -] 1 amp NEB Q4H PRN amp 03/14/18 Olanzapine [Zyprexa -] 7.5 mg PO HS tablet 03/14/18 Review of Systems - Review of Systems Cardiovascular: reports: No Symptoms Respiratory: reports: No Symptoms Gastrointestinal: reports: No Symptoms Physical Examination Vital Signs: Vital Signs Temperature 98.8 F 06/06/18 12:53 Pulse Rate 70 06/06/18 12:53 Respiratory Rate 20 06/06/18 12:53 Blood Pressure 96/62 06/06/18 12:53 O2 Sat by Pulse Oximetry (%) 98 06/06/18 11:22 Constitutional: Yes: Calm, Thin Cardiovascular: Yes: Regular Rate and Rhythm, S1, S2 Respiratory: Yes: CTA Bilaterally, Diminished (at bases) Gastrointestinal: Yes: Normal Bowel Sounds, Soft Edema: No Neurological: Yes: Alert (responds to his name) Labs: CBC, BMP 06/06/18 09:55 06/06/18 09:55 Imaging - Results Chest X-ray: Report Reviewed (infiltrates) Problem List - Problems (1) Sepsis Assessment/Plan: flu swab ordered broad spectrum abx ID eval ivf vanco and zosyn given in ER lactic normal elevated WNC with SBP < 100, temp in ER > 100.5 dvt ppx Code(s): A41.9 - SEPSIS, UNSPECIFIED ORGANISM Qualifiers: Sepsis type: sepsis due to unspecified organism Qualified Code(s): A41.9 - Sepsis, unspecified organism (2) Dementia Assessment/Plan: continue home meds Code(s): F03.90 - UNSPECIFIED DEMENTIA WITHOUT BEHAVIORAL DISTURBANCE (3) HLD (hyperlipidemia) Code(s): E78.5 - HYPERLIPIDEMIA, UNSPECIFIED
[2018-06-06] MEDS ORDERED: ACETAMINOPHEN 325 MG TABLET (FP) PO PRN (13:21)
--- NOTE | 2018-06-06 15:11 | PN ---
Progress Note (short form) - Note Progress Note: ID CONSULT DICTATED TOXIC METABOLIC ENCEPHALOPATHY/ DEMENTIA ? RESPIRATORY TRACT SOURCE AWAIT C/S EMPIRIC CEFTRIAXONE/ ZITHROMAX
[2018-06-06] MEDS ORDERED: AZITHROMYCIN IVPB 500 MG/250 ML BAG IVPB SCH (15:15)
[2018-06-06] MEDS ORDERED: CEFTRIAXONE 2 GM in DEXTROSE 5%-WATER 100 ML IVPB SCH (15:15)
[2018-06-06] MEDS ORDERED: HALOPERIDOL LACTATE 5 MG/ML IM ONE (15:31)
--- NOTE | 2018-06-06 15:53 | EKG ---
Test Reason : Blood Pressure : / mmHG Vent. Rate : 076 BPM Atrial Rate : 076 BPM P-R Int : 226 ms QRS Dur : 098 ms QT Int : 394 ms P-R-T Axes : 019 -25 022 degrees QTc Int : 443 ms SINUS RHYTHM WITH 1ST DEGREE A-V BLOCK OTHERWISE NORMAL ECG WHEN COMPARED WITH ECG OF 10-MAR-2018 01:48, NO SIGNIFICANT CHANGE WAS FOUND Confirmed by GERSON SELLERS, DANITZA ([id number]) on 06/06/2018 3:53:35 PM Referred By: Confirmed By:DANITZA NIETO MD
--- NOTE | 2018-06-06 16:27 | CONS ---
DATE OF CONSULTATION: 06/06/2018 HISTORY OF PRESENT ILLNESS: The patient is an 83-year-old male who was evaluated for sepsis. History was obtained from the chart as he cannot give a history secondary to dementia. He was admitted to the hospital with a two-day history of generalized arthralgias, myalgias and a productive cough. He developed rigors prior to admission, prompting his emergency room visit. According to his , she had been ill with a respiratory tract illness prior to the onset of his illness. The patient did not receive a flu shot this year. He was evaluated in the emergency room where he was noted to have fever and an elevated white blood cell count. A rapid flu swab was performed and was negative x2. A chest x-ray was officially read as no acute infiltrate. At the present time, he is awake. He is seated in bed. He complains of generalized pain. He points to his shoulders and to his suprapubic area. He denies any dysuria although he does not give a reliable history. Again, according to the notes, he has a cough with difficulty expectorating. No reports of labored breathing, vomiting, diarrhea or grossly purulent urine. PAST MEDICAL HISTORY: Positive for dementia, depression, hypertension, hyperlipidemia. ALLERGIES: No known drug allergies. MEDICATIONS: Tylenol, Lipitor, heparin, Zyprexa, vancomycin, Zosyn. SOCIAL HISTORY: He resides at home with family members. Former smoker. No recent hospitalizations within the past three months. REVIEW OF SYSTEMS: Neurologic: No loss of consciousness, seizure activity or focal weakness. Cardiac: Negative for chest pain or palpitations. Respiratory: As per HPI. Gastrointestinal: Negative for vomiting or diarrhea. Genitourinary: Negative for urinary tract infection. LABORATORY DATA: White count 14.8, 75 neutrophils, 10 lymphocytes, 9 monocytes. Hematocrit 36.8, platelet count 128, liver enzymes normal. Creatinine 0.9. Urine leucocyte esterase negative. A chest x-ray was officially read as negative. However, there do appear to be increased markings at the right base. PHYSICAL EXAMINATION: General: He is awake but confused. Vital Signs: Temperature 98.8, T-max 100.9, blood pressure 96/62, pulse 70 and regular, respiratory rate 20 per minute. HEENT:: Sclerae anicteric. Positive ectropion. Dry mucous membranes. Heart: Heart sounds S1, S2. Lungs: Crepitations at the bases bilaterally. Abdomen: Soft. No tenderness elicits. No masses, rebound or rigidity. Extremities: Negative for edema. IMPRESSION: 1. Toxic metabolic encephalopathy superimposed on baseline dementia. 2. Rule out respiratory tract infection precipitating toxic metabolic encephalopathy. 3. Rule out urinary tract focus. PLAN: 1. Await blood culture results. 2. Obtain sputum culture, urine Legionella antigen. 3. Empiric antibiotic coverage for possible community-acquired vs. atypical pneumonia with Zithromax and ceftriaxone. 4. Further recommendations pending cultures and clinical course. Thank you for the kind referral. BRODY OMYA M.D. [id number]
[2018-06-06] MEDS: OLANZapine 2.5 MG TABLET PO SCH (21:36)
[2018-06-06] MEDS: MEMANTINE HCL 5 MG TABLET (UD) PO SCH (21:36)
[2018-06-06] MEDS: ATORVASTATIN CA 40 MG TABLET (FP) PO SCH (21:36)
[2018-06-06] MEDS: LATANOPROST 0.005% OPHTH SOLN 2.5ML BOTTLE OD SCH (21:37)
[2018-06-06] MEDS: HEPARIN NA (PORCINE) 5,000 UNITS/ML 1ML VIAL SQ SCH (21:37)
[2018-06-06] MEDS ORDERED: DEXTROSE 5%-WATER 100 ML IVPB ONE (23:47)
[2018-06-06] MEDS: AZITHROMYCIN IVPB 500 MG/250 ML BAG IVPB SCH (23:55)
[2018-06-06] MEDS: CEFTRIAXONE 2 GM in DEXTROSE 5%-WATER 100 ML IVPB SCH (23:55)
[2018-06-06] MEDS: SODIUM CHLORIDE 1,000 ML IV SCH (23:56)
[2018-06-07 07:23] LABS: BASO % 0.5 % (0-2.0); EOS % 7.2 % (0-4.5); HEMATOCRIT 36.3 % (35.4-49); HEMOGLOBIN 11.6 GM/dL (11.7-16.9); LYMPH % 13.6 % (8-40); MCH 29.9 pg (25.7-33.7); MEAN CELL VOLUME 93.4 fl (80-96); MEAN PLT VOLUME 8.9 fl (7.5-11.1); MONO % 9.3 % (3.8-10.2); NEUT % 69.4 % (42.8-82.8); PLATELET COUNT 110 K/MM3 (134-434); RBC 3.89 M/mm3 (4.00-5.60); RDW 15.4 % (11.9-15.9); WHITE BLOOD COUNT 14.8 K/mm3 (4.0-10.0)
[2018-06-07 07:50] LABS: ALBUMIN 3.6 g/dl (3.4-5.0); ALK PHOS 75 U/L (45-117); ANION GAP 8 MMOL/L (8-16); BILIRUBIN,TOTAL 0.7 mg/dL (0.2-1); BLOOD UREA NITROGEN 10 mg/dL (7-18); CALCIUM 8.3 mg/dL (8.5-10.1); CHLORIDE 104 mmol/L (98-107); CO2 29 mmol/L (21-32); CREATININE 0.8 mg/dL (0.55-1.3); GLUCOSE,RANDOM 66 mg/dL (74-106); MAGNESIUM 2.2 mg/dL (1.8-2.4); POTASSIUM 3.6 mmol/L (3.5-5.1); SGOT/AST 39 U/L (15-37); SGPT/ALT 18 U/L (13-61); SODIUM 140 mmol/L (136-145); TOT PROT 6.5 g/dl (6.4-8.2)
[2018-06-07] MEDS: MEMANTINE HCL 5 MG TABLET (UD) PO SCH ×2 (10:05→22:55)
[2018-06-07] MEDS: HEPARIN NA (PORCINE) 5,000 UNITS/ML 1ML VIAL SQ SCH ×2 (10:05→22:55)
--- NOTE | 2018-06-07 17:16 | PN ---
Progress Note, Physician History of Present Illness: OOB in wheelchair Confused Breathing non-labored No cough noted Temps down Afebrile - Current Medication List Current Medications: Active Medications Acetaminophen (Tylenol -) 650 mg PO Q6H PRN PRN Reason: FEVER Atorvastatin Calcium (Lipitor -) 40 mg PO [facility] Last Admin: 06/06/18 21:36 Dose: 40 mg Heparin Sodium (Porcine) (Heparin -) 5,000 unit SQ BID [facility] Last Admin: 06/07/18 10:05 Dose: 5,000 unit Sodium Chloride (Normal Saline -) 1,000 mls @ 75 mls/hr IV ASDIR [facility] Last Admin: 06/06/18 23:56 Dose: 75 mls/hr Ceftriaxone Sodium 2 gm/ (Dextrose) 100 mls @ 200 mls/hr IVPB HS [facility]; Protocol Last Admin: 06/06/18 23:55 Dose: 200 mls/hr Azithromycin (Zithromax 500mg Ivpb (Pre-Docked)) 500 mg in 250 mls @ 250 mls/ hr IVPB [facility] Last Admin: 06/06/18 23:55 Dose: 250 mls/hr Latanoprost (Xalatan 0.005% Eye Drops -) 1 drop OD [facility] Last Admin: 06/06/18 21:37 Dose: 1 drop Memantine (Namenda -) 5 mg PO BID [facility] Last Admin: 06/07/18 10:05 Dose: 5 mg Olanzapine (Zyprexa -) 7.5 mg PO [facility] Last Admin: 06/06/18 21:36 Dose: 7.5 mg - Objective Vital Signs: Vital Signs Temperature 97.2 F L 06/07/18 14:11 Pulse Rate 76 06/07/18 14:11 Respiratory Rate 20 06/07/18 04:00 Blood Pressure 112/70 06/07/18 04:00 O2 Sat by Pulse Oximetry (%) 98 06/07/18 09:00 Labs: CBC, BMP 06/07/18 06:00 06/07/18 06:00 INR, PTT INR 1.22 (0.83-1.09) H 06/06/18 09:55
--- NOTE | 2018-06-07 17:29 | PN ---
Progress Note, Physician History of Present Illness: OOB in wheelchair Confused Breathing non-labored No cough noted Temps down Afebrile WBC slightly elevated BC (-) - Current Medication List Current Medications: Active Medications Acetaminophen (Tylenol -) 650 mg PO Q6H PRN PRN Reason: FEVER Atorvastatin Calcium (Lipitor -) 40 mg PO [facility] Last Admin: 06/06/18 21:36 Dose: 40 mg Heparin Sodium (Porcine) (Heparin -) 5,000 unit SQ BID [facility] Last Admin: 06/07/18 10:05 Dose: 5,000 unit Sodium Chloride (Normal Saline -) 1,000 mls @ 75 mls/hr IV ASDIR [facility] Last Admin: 06/06/18 23:56 Dose: 75 mls/hr Ceftriaxone Sodium 2 gm/ (Dextrose) 100 mls @ 200 mls/hr IVPB [facility]; Protocol Last Admin: 06/06/18 23:55 Dose: 200 mls/hr Azithromycin (Zithromax 500mg Ivpb (Pre-Docked)) 500 mg in 250 mls @ 250 mls/ hr IVPB [facility] Last Admin: 06/06/18 23:55 Dose: 250 mls/hr Latanoprost (Xalatan 0.005% Eye Drops -) 1 drop OD [facility] Last Admin: 06/06/18 21:37 Dose: 1 drop Memantine (Namenda -) 5 mg PO BID [facility] Last Admin: 06/07/18 10:05 Dose: 5 mg Olanzapine (Zyprexa -) 7.5 mg PO [facility] Last Admin: 06/06/18 21:36 Dose: 7.5 mg - Objective Vital Signs: Vital Signs Temperature 97.2 F L 06/07/18 14:11 Pulse Rate 76 06/07/18 14:11 Respiratory Rate 20 06/07/18 04:00 Blood Pressure 112/70 06/07/18 04:00 O2 Sat by Pulse Oximetry (%) 98 06/07/18 09:00 Constitutional: Yes: No Distress Eyes: Yes: Conjunctiva Clear Cardiovascular: Yes: Regular Rate and Rhythm, S1, S2 Respiratory: Yes: CTA Bilaterally Gastrointestinal: Yes: Normal Bowel Sounds, Soft Labs: CBC, BMP 06/07/18 06:00 06/07/18 06:00 INR, PTT INR 1.22 (0.83-1.09) H 06/06/18 09:55 Assessment/Plan Toxic/ metabolic encephalopathy R/O pneumonia Await c/s Continue ceftriaxone/ zithromax
--- NOTE | 2018-06-07 17:43 | PN ---
Progress Note, Physician Chief Complaint: Sepsis History of Present Illness: Previous notes and events reviewed awake and alert NAD periods of agitation wbc elev afebrile - Current Medication List Current Medications: Active Medications Acetaminophen (Tylenol -) 650 mg PO Q6H PRN PRN Reason: FEVER Atorvastatin Calcium (Lipitor -) 40 mg PO [facility] Last Admin: 06/06/18 21:36 Dose: 40 mg Heparin Sodium (Porcine) (Heparin -) 5,000 unit SQ BID [facility] Last Admin: 06/07/18 10:05 Dose: 5,000 unit Sodium Chloride (Normal Saline -) 1,000 mls @ 75 mls/hr IV ASDIR [facility] Last Admin: 06/06/18 23:56 Dose: 75 mls/hr Ceftriaxone Sodium 2 gm/ (Dextrose) 100 mls @ 200 mls/hr IVPB [facility]; Protocol Last Admin: 06/06/18 23:55 Dose: 200 mls/hr Azithromycin (Zithromax 500mg Ivpb (Pre-Docked)) 500 mg in 250 mls @ 250 mls/ hr IVPB [facility] Last Admin: 06/06/18 23:55 Dose: 250 mls/hr Latanoprost (Xalatan 0.005% Eye Drops -) 1 drop OD [facility] Last Admin: 06/06/18 21:37 Dose: 1 drop Memantine (Namenda -) 5 mg PO BID [facility] Last Admin: 06/07/18 10:05 Dose: 5 mg Olanzapine (Zyprexa -) 7.5 mg PO [facility] Last Admin: 06/06/18 21:36 Dose: 7.5 mg - Objective Vital Signs: Vital Signs Temperature 97.2 F L 06/07/18 14:11 Pulse Rate 76 06/07/18 14:11 Respiratory Rate 20 06/07/18 04:00 Blood Pressure 112/70 06/07/18 04:00 O2 Sat by Pulse Oximetry (%) 98 06/07/18 09:00 Constitutional: Yes: No Distress, Calm Eyes: Yes: Conjunctiva Clear Neck: Yes: Supple Cardiovascular: Yes: Regular Rate and Rhythm Respiratory: Yes: Regular, CTA Bilaterally Gastrointestinal: Yes: Normal Bowel Sounds, Soft Genitourinary: Yes: Incontinence Musculoskeletal: Yes: Muscle Weakness Extremities: Yes: WNL Edema: No Integumentary: Yes: WNL Neurological: Yes: Alert, Oriented (to self only) Psychiatric: Yes: Alert Labs: CBC, BMP 06/07/18 06:00 06/07/18 06:00 INR, PTT INR 1.22 (0.83-1.09) H 06/06/18 09:55 <Delores Tapia - Last Filed: 06/07/18 17:44> - Current Medication List Current Medications: Active Medications Acetaminophen (Tylenol -) 650 mg PO Q6H PRN PRN Reason: FEVER Atorvastatin Calcium (Lipitor -) 40 mg PO HS [facility] Last Admin: 06/07/18 22:55 Dose: 40 mg Heparin Sodium (Porcine) (Heparin -) 5,000 unit SQ BID [facility] Last Admin: 06/07/18 22:55 Dose: 5,000 unit Sodium Chloride (Normal Saline -) 1,000 mls @ 75 mls/hr IV ASDIR [facility] Last Admin: 06/06/18 23:56 Dose: 75 mls/hr Ceftriaxone Sodium 2 gm/ (Dextrose) 100 mls @ 200 mls/hr IVPB [facility]; Protocol Last Admin: 06/07/18 22:56 Dose: 200 mls/hr Azithromycin (Zithromax 500mg Ivpb (Pre-Docked)) 500 mg in 250 mls @ 250 mls/ hr IVPB [facility] Last Admin: 06/07/18 22:55 Dose: 250 mls/hr Latanoprost (Xalatan 0.005% Eye Drops -) 1 drop OD [facility] Last Admin: 06/07/18 23:08 Dose: 1 drop Memantine (Namenda -) 5 mg PO BID [facility] Last Admin: 06/07/18 22:55 Dose: 5 mg Olanzapine (Zyprexa -) 7.5 mg PO [facility] Last Admin: 06/07/18 22:55 Dose: 7.5 mg - Objective Vital Signs: Vital Signs Temperature 98.3 F 06/08/18 06:00 Pulse Rate 77 06/08/18 06:00 Respiratory Rate 20 06/08/18 06:00 Blood Pressure 138/92 06/08/18 06:00 O2 Sat by Pulse Oximetry (%) 97 06/08/18 06:00 Labs: CBC, BMP 06/08/18 06:00 06/08/18 06:00 INR, PTT INR 1.22 (0.83-1.09) H 06/06/18 09:55 <Shantal Beckman - Last Filed: 06/08/18 08:38> Problem List - Problems (1) Bronchitis Code(s): J40 - BRONCHITIS, NOT SPECIFIED ACUTE OR CHRONIC (2) Dementia Code(s): F03.90 - UNSPECIFIED DEMENTIA WITHOUT BEHAVIORAL DISTURBANCE (3) Fall Code(s): W19.XXXA - UNSPECIFIED FALL, INITIAL ENCOUNTER Qualifiers: Encounter type: initial encounter Qualified Code(s): W19.XXXA - Unspecified fall, initial encounter (4) Fever Code(s): R50.9 - FEVER, UNSPECIFIED (5) HLD (hyperlipidemia) Code(s): E78.5 - HYPERLIPIDEMIA, UNSPECIFIED (6) HTN (hypertension) Code(s): I10 - ESSENTIAL (PRIMARY) HYPERTENSION <Delores Tapia - Last Filed: 06/07/18 17:44> Assessment/Plan -ID on board, cont IV ABT -wbc elev, will monitor for downward trend -cont with Namenda -tylenol PRN for fever -dvt ppx -urine legionella, sputum culture pending -O2 via NC PRN, keep SpO2 >90% -soft diet -fall precaution <Delores Tapia - Last Filed: 06/07/18 17:44> PATIENT SEEN AND EXAMINED AND I AGREE WITH ABOVE NOTE <Shantal Beckman - Last Filed: 06/08/18 08:38>
--- NOTE | 2018-06-07 21:51 | HOSP ---
Physical Examination Vital Signs: Vital Signs Temperature 97.2 F L 06/07/18 14:11 Pulse Rate 76 06/07/18 14:11 Respiratory Rate 20 06/07/18 04:00 Blood Pressure 112/70 06/07/18 04:00 O2 Sat by Pulse Oximetry (%) 97 06/07/18 10:00 Labs: CBC, BMP 06/07/18 06:00 06/07/18 06:00 Hospitalist Encounter Assessment: called by Nursing, pt agitated, taking off favian, trying to get out of bed, aggressive towards staff. Will given Haldol 2mg IM
[2018-06-07] MEDS ORDERED: HALOPERIDOL LACTATE 5 MG/ML IM ONE (21:53)
[2018-06-07] MEDS ORDERED: DEXTROSE 5%-WATER 100 ML IVPB ONE (22:49)
[2018-06-07] MEDS: ATORVASTATIN CA 40 MG TABLET (FP) PO SCH (22:55)
[2018-06-07] MEDS: OLANZapine 2.5 MG TABLET PO SCH (22:55)
[2018-06-07] MEDS: AZITHROMYCIN IVPB 500 MG/250 ML BAG IVPB SCH (22:55)
[2018-06-07] MEDS: CEFTRIAXONE 2 GM in DEXTROSE 5%-WATER 100 ML IVPB SCH (22:56)
[2018-06-07] MEDS: LATANOPROST 0.005% OPHTH SOLN 2.5ML BOTTLE OD SCH (23:08)
[2018-06-08 07:05] LABS: HEMATOCRIT 38.3 % (35.4-49); HEMOGLOBIN 12.4 GM/dL (11.7-16.9); MCH 29.9 pg (25.7-33.7); MCHC 32.5 g/dl (32.0-35.9); MEAN CELL VOLUME 91.9 fl (80-96); MEAN PLT VOLUME 9.1 fl (7.5-11.1); PLATELET COUNT 124 K/MM3 (134-434); RBC 4.16 M/mm3 (4.00-5.60); RDW 15.4 % (11.9-15.9)
[2018-06-08 07:32] LABS: ALBUMIN 3.6 g/dl (3.4-5.0); ALK PHOS 73 U/L (45-117); ANION GAP 9 MMOL/L (8-16); BILIRUBIN,TOTAL 0.7 mg/dL (0.2-1); BLOOD UREA NITROGEN 11 mg/dL (7-18); CALCIUM 8.6 mg/dL (8.5-10.1); CHLORIDE 105 mmol/L (98-107); CO2 26 mmol/L (21-32); CREATININE 0.8 mg/dL (0.55-1.3); GLUCOSE,RANDOM 89 mg/dL (74-106); POTASSIUM 3.4 mmol/L (3.5-5.1); SGOT/AST 60 U/L (15-37); SGPT/ALT 21 U/L (13-61); SODIUM 140 mmol/L (136-145); TOT PROT 6.9 g/dl (6.4-8.2)
[2018-06-08] MEDS: HEPARIN NA (PORCINE) 5,000 UNITS/ML 1ML VIAL SQ SCH ×2 (10:25→22:52)
[2018-06-08] MEDS: MEMANTINE HCL 5 MG TABLET (UD) PO SCH ×2 (12:00→22:52)
[2018-06-08] MEDS: SODIUM CHLORIDE 1,000 ML IV SCH ×2 (12:03→15:22)
[2018-06-08] MEDS ORDERED: POTASSIUM CHLORIDE TABS 10 MEQ TABLET.ER (FP) PO ONE (12:16)
--- NOTE | 2018-06-08 12:17 | PN ---
Progress Note, Physician - Current Medication List Current Medications: Active Medications Acetaminophen (Tylenol -) 650 mg PO Q6H PRN PRN Reason: FEVER Atorvastatin Calcium (Lipitor -) 40 mg PO [facility] Last Admin: 06/07/18 22:55 Dose: 40 mg Heparin Sodium (Porcine) (Heparin -) 5,000 unit SQ BID [facility] Last Admin: 06/08/18 10:25 Dose: 5,000 unit Latanoprost (Xalatan 0.005% Eye Drops -) 1 drop OD [facility] Last Admin: 06/07/18 23:08 Dose: 1 drop Memantine (Namenda -) 5 mg PO BID [facility] Last Admin: 06/08/18 12:00 Dose: 5 mg Olanzapine (Zyprexa -) 7.5 mg PO [facility] Last Admin: 06/07/18 22:55 Dose: 7.5 mg - Objective Vital Signs: Vital Signs Temperature 98.0 F 06/08/18 09:00 Pulse Rate 70 06/08/18 09:00 Respiratory Rate 16 06/08/18 09:00 Blood Pressure 130/80 06/08/18 09:00 O2 Sat by Pulse Oximetry (%) 97 06/08/18 09:00 Cardiovascular: Yes: S1, S2 Respiratory: Yes: Regular, CTA Bilaterally Gastrointestinal: Yes: Normal Bowel Sounds, Soft Labs: CBC, BMP 06/08/18 06:00 06/08/18 06:00 INR, PTT INR 1.22 (0.83-1.09) H 06/06/18 09:55 Problem List - Problems (1) Sepsis Assessment/Plan: -Possible pneumonia -Improved with abx -No accesses BC negative--afebrile--Change to po and monitor Code(s): A41.9 - SEPSIS, UNSPECIFIED ORGANISM Qualifiers: Sepsis type: sepsis due to unspecified organism Qualified Code(s): A41.9 - Sepsis, unspecified organism (2) HTN (hypertension) Assessment/Plan: -Stable Code(s): I10 - ESSENTIAL (PRIMARY) HYPERTENSION (3) Leukocytosis Assessment/Plan: -Resolved Code(s): D72.829 - ELEVATED WHITE BLOOD CELL COUNT, UNSPECIFIED Qualifiers: Leukocytosis type: unspecified Qualified Code(s): D72.829 - Elevated white blood cell count, unspecified
[2018-06-08] MEDS: CEFUROXIME AXETIL 500 MG TABLET PO SCH ×2 (15:22→22:53)
[2018-06-08] MEDS ORDERED: PT OWN MED DRAWER 7, Y5N ONE (22:16)
[2018-06-08] MEDS: OLANZapine 2.5 MG TABLET PO SCH (22:51)
[2018-06-08] MEDS: ATORVASTATIN CA 40 MG TABLET (FP) PO SCH (22:52)
[2018-06-08] MEDS: LATANOPROST 0.005% OPHTH SOLN 2.5ML BOTTLE OD SCH (22:54)
[2018-06-09] MEDS: SODIUM CHLORIDE 1,000 ML IV SCH (01:13)
[2018-06-09 08:31] LABS: BASO % 0.7 % (0-2.0); EOS % 19.9 % (0-4.5); HEMATOCRIT 37.4 % (35.4-49); HEMOGLOBIN 12.1 GM/dL (11.7-16.9); LYMPH % 25.2 % (8-40); MCHC 32.4 g/dl (32.0-35.9); MEAN CELL VOLUME 92.4 fl (80-96); MEAN PLT VOLUME 9.3 fl (7.5-11.1); MONO % 8.4 % (3.8-10.2); NEUT % 45.8 % (42.8-82.8); PLATELET COUNT 152 K/MM3 (134-434); RBC 4.05 M/mm3 (4.00-5.60); WHITE BLOOD COUNT 7.7 K/mm3 (4.0-10.0)
[2018-06-09 08:55] LABS: ALBUMIN 3.3 g/dl (3.4-5.0); ALK PHOS 75 U/L (45-117); ANION GAP 8 MMOL/L (8-16); BILIRUBIN,TOTAL 0.8 mg/dL (0.2-1); BLOOD UREA NITROGEN 11 mg/dL (7-18); CALCIUM 8.8 mg/dL (8.5-10.1); CHLORIDE 108 mmol/L (98-107); CO2 26 mmol/L (21-32); CREATININE 0.7 mg/dL (0.55-1.3); GLUCOSE,RANDOM 89 mg/dL (74-106); POTASSIUM 3.6 mmol/L (3.5-5.1); SGOT/AST 48 U/L (15-37); SGPT/ALT 24 U/L (13-61); SODIUM 141 mmol/L (136-145); TOT PROT 6.7 g/dl (6.4-8.2)
[2018-06-09] MEDS ORDERED: PT OWN MED DRAWER 7, Y5N ONE ×2 (10:09→20:45)
[2018-06-09] MEDS: CEFUROXIME AXETIL 500 MG TABLET PO SCH ×2 (10:11→21:07)
[2018-06-09] MEDS: HEPARIN NA (PORCINE) 5,000 UNITS/ML 1ML VIAL SQ SCH ×2 (10:11→21:06)
[2018-06-09] MEDS: MEMANTINE HCL 5 MG TABLET (UD) PO SCH ×2 (10:11→21:07)
--- NOTE | 2018-06-09 11:49 | PN ---
Progress Note, Physician - Current Medication List Current Medications: Active Medications Acetaminophen (Tylenol -) 650 mg PO Q6H PRN PRN Reason: FEVER Atorvastatin Calcium (Lipitor -) 40 mg PO [facility] Last Admin: 06/08/18 22:52 Dose: 40 mg Cefuroxime Axetil (Ceftin -) 500 mg PO BID [facility] Last Admin: 06/09/18 10:11 Dose: 500 mg Heparin Sodium (Porcine) (Heparin -) 5,000 unit SQ BID [facility] Last Admin: 06/09/18 10:11 Dose: 5,000 unit Sodium Chloride (Normal Saline -) 1,000 mls @ 75 mls/hr IV ASDIR [facility] Last Admin: 06/09/18 01:13 Dose: 75 mls/hr Latanoprost (Xalatan 0.005% Eye Drops -) 1 drop OD [facility] Last Admin: 06/08/18 22:54 Dose: 1 drop Memantine (Namenda -) 5 mg PO BID [facility] Last Admin: 06/09/18 10:11 Dose: 5 mg Olanzapine (Zyprexa -) 7.5 mg PO [facility] Last Admin: 06/08/18 22:51 Dose: 7.5 mg - Objective Vital Signs: Vital Signs Temperature 97.8 F 06/09/18 06:00 Pulse Rate 72 06/09/18 06:00 Respiratory Rate 19 06/08/18 22:00 Blood Pressure 125/77 06/09/18 06:00 O2 Sat by Pulse Oximetry (%) 96 06/08/18 21:00 Cardiovascular: Yes: S1, S2 Respiratory: Yes: Regular, CTA Bilaterally Gastrointestinal: Yes: Normal Bowel Sounds, Soft Labs: CBC, BMP 06/09/18 07:00 06/09/18 07:00 INR, PTT INR 1.22 (0.83-1.09) H 06/06/18 09:55 Problem List - Problems (1) Sepsis Assessment/Plan: -Possible pneumonia--cxr nad -Improved with abx -No accesses BC negative--afebrile--Change to po and monitor Code(s): A41.9 - SEPSIS, UNSPECIFIED ORGANISM Qualifiers: Sepsis type: sepsis due to unspecified organism Qualified Code(s): A41.9 - Sepsis, unspecified organism (2) HTN (hypertension) Assessment/Plan: -Stable Code(s): I10 - ESSENTIAL (PRIMARY) HYPERTENSION (3) Leukocytosis Assessment/Plan: -Resolved Code(s): D72.829 - ELEVATED WHITE BLOOD CELL COUNT, UNSPECIFIED Qualifiers: Leukocytosis type: unspecified Qualified Code(s): D72.829 - Elevated white blood cell count, unspecified Assessment/Plan --PT SNF
[2018-06-09] MEDS: OLANZapine 2.5 MG TABLET PO SCH (21:07)
[2018-06-09] MEDS: ATORVASTATIN CA 40 MG TABLET (FP) PO SCH (21:08)
[2018-06-09] MEDS: LATANOPROST 0.005% OPHTH SOLN 2.5ML BOTTLE OD SCH (21:10)
--- NOTE | 2018-06-10 10:15 | PN ---
Progress Note, Physician Chief Complaint: Sepsis History of Present Illness: Previous notes and events reviewed awake and alert NAD periods of agitation wbc nl afebrile - Current Medication List Current Medications: Active Medications Acetaminophen (Tylenol -) 650 mg PO Q6H PRN PRN Reason: FEVER Atorvastatin Calcium (Lipitor -) 40 mg PO [facility] Last Admin: 06/09/18 21:08 Dose: 40 mg Cefuroxime Axetil (Ceftin -) 500 mg PO BID [facility] Last Admin: 06/09/18 21:07 Dose: 500 mg Heparin Sodium (Porcine) (Heparin -) 5,000 unit SQ BID [facility] Last Admin: 06/09/18 21:06 Dose: 5,000 unit Latanoprost (Xalatan 0.005% Eye Drops -) 1 drop OD [facility] Last Admin: 06/09/18 21:10 Dose: 1 drop Memantine (Namenda -) 5 mg PO BID [facility] Last Admin: 06/09/18 21:07 Dose: 5 mg Olanzapine (Zyprexa -) 7.5 mg PO [facility] Last Admin: 06/09/18 21:07 Dose: 7.5 mg - Objective Vital Signs: Vital Signs Temperature 98.2 F 06/10/18 06:00 Pulse Rate 88 06/10/18 06:00 Respiratory Rate 18 06/10/18 06:00 Blood Pressure 120/83 06/10/18 06:00 O2 Sat by Pulse Oximetry (%) 96 06/08/18 21:00 Constitutional: Yes: No Distress Eyes: Yes: Conjunctiva Clear Neck: Yes: Supple Cardiovascular: Yes: Regular Rate and Rhythm Respiratory: Yes: Regular, CTA Bilaterally Gastrointestinal: Yes: Normal Bowel Sounds, Soft Genitourinary: Yes: Incontinence Musculoskeletal: Yes: Muscle Weakness Extremities: Yes: WNL Edema: No Integumentary: Yes: WNL Neurological: Yes: Alert, Pre-Existing Deficit Psychiatric: Yes: Alert Labs: CBC, BMP 06/09/18 07:00 06/09/18 07:00 INR, PTT INR 1.22 (0.83-1.09) H 06/06/18 09:55 <Delores Tapia - Last Filed: 06/10/18 10:10> - Current Medication List Current Medications: Active Medications Acetaminophen (Tylenol -) 650 mg PO Q6H PRN PRN Reason: FEVER Atorvastatin Calcium (Lipitor -) 40 mg PO [facility] Last Admin: 06/10/18 22:29 Dose: 40 mg Cefuroxime Axetil (Ceftin -) 500 mg PO BID [facility] Last Admin: 06/10/18 22:30 Dose: 500 mg Heparin Sodium (Porcine) (Heparin -) 5,000 unit SQ BID [facility] Last Admin: 06/10/18 22:30 Dose: 5,000 unit Latanoprost (Xalatan 0.005% Eye Drops -) 1 drop OD [facility] Last Admin: 06/10/18 22:31 Dose: 1 drop Memantine (Namenda -) 5 mg PO BID [facility] Last Admin: 06/10/18 22:30 Dose: 5 mg Olanzapine (Zyprexa -) 7.5 mg PO [facility] Last Admin: 06/10/18 22:29 Dose: 7.5 mg - Objective Vital Signs: Vital Signs Temperature 98.1 F 06/11/18 05:50 Pulse Rate 80 06/11/18 05:50 Respiratory Rate 20 06/11/18 05:50 Blood Pressure 106/60 06/11/18 05:50 O2 Sat by Pulse Oximetry (%) 96 06/10/18 21:00 Labs: CBC, BMP 06/09/18 07:00 06/09/18 07:00 INR, PTT INR 1.22 (0.83-1.09) H 06/06/18 09:55 <Shantal Beckman - Last Filed: 06/11/18 07:35> Problem List - Problems (1) Bronchitis Code(s): J40 - BRONCHITIS, NOT SPECIFIED ACUTE OR CHRONIC (2) Dementia Code(s): F03.90 - UNSPECIFIED DEMENTIA WITHOUT BEHAVIORAL DISTURBANCE (3) Fall Code(s): W19.XXXA - UNSPECIFIED FALL, INITIAL ENCOUNTER Qualifiers: Encounter type: initial encounter Qualified Code(s): W19.XXXA - Unspecified fall, initial encounter (4) Fever Code(s): R50.9 - FEVER, UNSPECIFIED (5) HLD (hyperlipidemia) Code(s): E78.5 - HYPERLIPIDEMIA, UNSPECIFIED (6) HTN (hypertension) Code(s): I10 - ESSENTIAL (PRIMARY) HYPERTENSION <Delores Tapia - Last Filed: 06/10/18 10:10> Assessment/Plan -ID on board, switched to PO ABT -wbc nl, will monitor -cont with Namenda -tylenol PRN for fever -dvt ppx -O2 via NC PRN, keep SpO2 >90% -soft diet -urine and blood culture neg -fall precaution -SNF for discharge <Delores Tapia - Last Filed: 06/10/18 10:10> PATIENT SEEN AND EXAMINED I AGREE WITH ABOVE NOTE <Shantal Beckman - Last Filed: 06/11/18 07:35>
[2018-06-10] MEDS ORDERED: PT OWN MED DRAWER 7, Y5N ONE ×2 (10:17→22:14)
[2018-06-10] MEDS: HEPARIN NA (PORCINE) 5,000 UNITS/ML 1ML VIAL SQ SCH ×2 (10:18→22:30)
[2018-06-10] MEDS: MEMANTINE HCL 5 MG TABLET (UD) PO SCH ×2 (10:18→22:30)
[2018-06-10] MEDS: CEFUROXIME AXETIL 500 MG TABLET PO SCH ×2 (10:18→22:30)
[2018-06-10] MEDS: OLANZapine 2.5 MG TABLET PO SCH (22:29)
[2018-06-10] MEDS: ATORVASTATIN CA 40 MG TABLET (FP) PO SCH (22:29)
[2018-06-10] MEDS: LATANOPROST 0.005% OPHTH SOLN 2.5ML BOTTLE OD SCH (22:31)
[2018-06-10] MEDS ORDERED: HALOPERIDOL LACTATE 5 MG/ML IM ONE (22:45)
[2018-06-11 08:25] LABS: HEMATOCRIT 38.4 % (35.4-49); HEMOGLOBIN 13.3 GM/dL (11.7-16.9); MCH 31.7 pg (25.7-33.7); MCHC 34.6 g/dl (32.0-35.9); MEAN CELL VOLUME 91.5 fl (80-96); MEAN PLT VOLUME 9.2 fl (7.5-11.1); PLATELET COUNT 245 K/MM3 (134-434)
[2018-06-11] MEDS ORDERED: PT OWN MED DRAWER 7, Y5N ONE ×2 (09:06→22:07)
[2018-06-11] MEDS: MEMANTINE HCL 5 MG TABLET (UD) PO SCH ×2 (09:12→22:21)
[2018-06-11] MEDS: CEFUROXIME AXETIL 500 MG TABLET PO SCH ×2 (09:12→22:22)
[2018-06-11] MEDS: HEPARIN NA (PORCINE) 5,000 UNITS/ML 1ML VIAL SQ SCH ×2 (09:12→22:22)
[2018-06-11 09:18] LABS: ALBUMIN 3.9 g/dl (3.4-5.0); ALK PHOS 181 U/L (45-117); ANION GAP 6 MMOL/L (8-16); BILIRUBIN,TOTAL 0.6 mg/dL (0.2-1); BLOOD UREA NITROGEN 15 mg/dL (7-18); CALCIUM 9.1 mg/dL (8.5-10.1); CHLORIDE 106 mmol/L (98-107); CO2 28 mmol/L (21-32); CREATININE 0.8 mg/dL (0.55-1.3); GLUCOSE,RANDOM 89 mg/dL (74-106); POTASSIUM 3.3 mmol/L (3.5-5.1); SGOT/AST 62 U/L (15-37); SGPT/ALT 53 U/L (13-61); SODIUM 141 mmol/L (136-145); TOT PROT 7.5 g/dl (6.4-8.2)
--- NOTE | 2018-06-11 11:45 | PN ---
Progress Note, Physician Chief Complaint: Upper respiratory infection Sepsis History of Present Illness: NAD confused, sitting in a wheelchair in a hallway with his Cultures negative On cephalosporin PO Seen by ID - Current Medication List Current Medications: Active Medications Acetaminophen (Tylenol -) 650 mg PO Q6H PRN PRN Reason: FEVER Atorvastatin Calcium (Lipitor -) [address] [facility] Last Admin: 06/10/18 22:29 Dose: 40 mg Cefuroxime Axetil (Ceftin -) 500 mg PO BID [facility] Last Admin: 06/11/18 09:12 Dose: 500 mg Heparin Sodium (Porcine) (Heparin -) 5,000 unit SQ BID [facility] Last Admin: 06/11/18 09:12 Dose: 5,000 unit Latanoprost (Xalatan 0.005% Eye Drops -) [address] [facility] Last Admin: 06/10/18 22:31 Dose: 1 drop Memantine (Namenda -) 5 mg PO BID [facility] Last Admin: 06/11/18 09:12 Dose: 5 mg Olanzapine (Zyprexa -) 7.[address] [facility] Last Admin: 06/10/18 22:29 Dose: 7.5 mg - Objective Vital Signs: Vital Signs Temperature 98.1 F 06/11/18 05:50 Pulse Rate 80 06/11/18 05:50 Respiratory Rate 20 06/11/18 05:50 Blood Pressure 106/60 06/11/18 05:50 O2 Sat by Pulse Oximetry (%) 96 06/10/18 21:00 Constitutional: Yes: Well Nourished, No Distress, Calm Cardiovascular: Yes: Regular Rate and Rhythm Respiratory: Yes: Regular Gastrointestinal: Yes: Normal Bowel Sounds, Soft Genitourinary: Yes: Incontinence Musculoskeletal: Yes: Muscle Weakness Extremities: Yes: WNL Edema: No Peripheral Pulses WNL: Yes Neurological: Yes: Alert, Confusion Psychiatric: Yes: Alert Labs: CBC, BMP 06/11/18 07:10 06/11/18 07:10 INR, PTT INR 1.22 (0.83-1.09) H 06/06/18 09:55 Problem List - Problems (1) Dementia with behavioral disturbance Assessment/Plan: -On Zyprexa -Seroquel in AM -Psych consult -On Vest restrain for safety Code(s): F03.91 - UNSPECIFIED DEMENTIA WITH BEHAVIORAL DISTURBANCE (2) Sepsis Assessment/Plan: -afebrile -PO abx -Seen by ID Code(s): A41.9 - SEPSIS, UNSPECIFIED ORGANISM Qualifiers: Sepsis type: sepsis due to unspecified organism Qualified Code(s): A41.9 - Sepsis, unspecified organism (3) Fever Assessment/Plan: -afebrile now -CXR and cultures negative -PO abx -Seen by ID Code(s): R50.9 - FEVER, UNSPECIFIED (4) Leukocytosis Assessment/Plan: resolved Code(s): D72.829 - ELEVATED WHITE BLOOD CELL COUNT, UNSPECIFIED Qualifiers: Leukocytosis type: unspecified Qualified Code(s): D72.829 - Elevated white blood cell count, unspecified (5) Acute metabolic encephalopathy Code(s): G93.41 - METABOLIC ENCEPHALOPATHY (6) Hypokalemia Assessment/Plan: -KCl 40 meq once today -KCl 20 meq daily starting in AM -monitor trend Code(s): E87.6 - HYPOKALEMIA Assessment/Plan see problem list Physical therapy
[2018-06-11] MEDS ORDERED: QUEtiapine FUMARATE 25 MG TABLET (FP) PO SCH (15:00)
[2018-06-11] MEDS ORDERED: POTASSIUM CHLORIDE ORAL LIQUID 20 MEQ/15 ML PO ONE (16:15)
--- NOTE | 2018-06-11 16:19 | DS ---
Physical Examination Vital Signs: Vital Signs Temperature 97.2 F L 06/11/18 14:00 Pulse Rate 81 06/11/18 14:00 Respiratory Rate 18 06/11/18 14:00 Blood Pressure 121/94 06/11/18 14:00 O2 Sat by Pulse Oximetry (%) 94 L 06/11/18 08:00 Findings/Remarks: Patient is an 83 year old male with a PMHx of Depression, Alzheimers dementia, HTN, HLD who presents here today for subjective fevers, chills, rigors, myalgia and a nonproductive cough for the past two days. Patient is poor historian and all history taken from and family at bedside. According to patients , she was sick with similar symptoms this past week and patient has been around her. States his cough sounds productive but no phlegm is produced. Patient overnight and this morning started experiencing worsening rigors, which prompted this hospital visit. per patient didnot get a flu shot this year and neither did she Constitutional: Yes: Well Nourished, No Distress, Anxious Cardiovascular: Yes: Regular Rate and Rhythm Respiratory: Yes: Regular Gastrointestinal: Yes: Normal Bowel Sounds Musculoskeletal: Yes: Muscle Weakness Extremities: Yes: WNL Edema: No Peripheral Pulses WNL: Yes Neurological: Yes: Alert, Pre-Existing Deficit Psychiatric: Yes: Alert Labs: CBC, BMP 06/11/18 07:10 06/11/18 07:10 Discharge Summary Reason For Visit: SEPSIS Current Active Problems Acute metabolic encephalopathy (Acute) Dementia with behavioral disturbance (Acute) Hypokalemia (Acute) Sepsis (Acute) Hospital Course: Laboratory Last Values WBC 7.0 K/mm3 (4.0-10.0) 06/11/18 07:10 RBC 4.20 M/mm3 (4.00-5.60) 06/11/18 07:10 Hgb 13.3 GM/dL (11.7-16.9) 06/11/18 07:10 Hct 38.4 % (35.4-49) 06/11/18 07:10 MCV 91.5 fl (80-96) 06/11/18 07:10 MCH 31.7 pg (25.7-33.7) 06/11/18 07:10 MCHC 34.6 g/dl (32.0-35.9) 06/11/18 07:10 RDW 15.0 % (11.9-15.9) 06/11/18 07:10 Plt Count 245 K/MM3 (134-434) D 06/11/18 07:10 MPV 9.2 fl (7.5-11.1) 06/11/18 07:10 Absolute Neuts (auto) 3.5 K/mm3 (1.5-8.0) 06/09/18 07:00 Neutrophils % 45.8 % (42.8-82.8) D 06/09/18 07:00 Lymphocytes % 25.2 % (8-40) D 06/09/18 07:00 Monocytes % 8.4 % (3.8-10.2) 06/09/18 07:00 Eosinophils % 19.9 % (0-4.5) H D 06/09/18 07:00 Basophils % 0.7 % (0-2.0) 06/09/18 07:00 Nucleated RBC % 0 % (0-0) 06/09/18 07:00 PT with INR 14.40 SEC (9.7-13.0) H 06/06/18 09:55 INR 1.22 (0.83-1.09) H 06/06/18 09:55 PTT (Actin FS) 32.9 SECONDS (25.2-36.5) 06/06/18 09:55 VBG pH 7.40 (7.32-7.42) 06/06/18 10:10 POC VBG pCO2 45.7 mmHg (38-52) 06/06/18 10:10 POC VBG pO2 46.9 mmHg (28-48) D 06/06/18 10:10 Mixed VBG HCO3 27.9 meq/L (19-25) H 06/06/18 10:10 Sodium 141 mmol/L (136-145) 06/11/18 07:10 Potassium 3.3 mmol/L (3.5-5.1) L 06/11/18 07:10 Chloride 106 mmol/L (98-107) 06/11/18 07:10 Carbon Dioxide 28 mmol/L (21-32) 06/11/18 07:10 Anion Gap 6 MMOL/L (8-16) L 06/11/18 07:10 BUN 15 mg/dL (7-18) 06/11/18 07:10 Creatinine 0.8 mg/dL (0.55-1.3) 06/11/18 07:10 Creat Clearance w eGFR > 60 (>60) 06/11/18 07:10 Random Glucose 89 mg/dL (74-106) 06/11/18 07:10 Lactic Acid 1.2 mmol/L (0.4-2.0) 06/06/18 09:55 Calcium 9.1 mg/dL (8.5-10.1) 06/11/18 07:10 Magnesium 2.2 mg/dL (1.8-2.4) 06/07/18 06:00 Total Bilirubin 0.6 mg/dL (0.2-1) 06/11/18 07:10 AST 62 U/L (15-37) H 06/11/18 07:10 ALT 53 U/L (13-61) 06/11/18 07:10 Alkaline Phosphatase 181 U/L (45-117) H 06/11/18 07:10 Troponin I < 0.02 ng/ml (0.00-0.05) 06/06/18 09:55 Total Protein 7.5 g/dl (6.4-8.2) 06/11/18 07:10 Albumin 3.9 g/dl (3.4-5.0) 06/11/18 07:10 Urine Color Ltyellow 06/06/18 12:05 Urine Appearance Clear 06/06/18 12:05 Urine pH 6.0 (5.0-8.0) 06/06/18 12:05 Ur Specific [place] 1.012 (1.010-1.035) 06/06/18 12:05 Urine Protein Negative (NEGATIVE) 06/06/18 12:05 Urine Glucose (UA) Negative (NEGATIVE) 06/06/18 12:05 Urine Ketones Negative (NEGATIVE) 06/06/18 12:05 Urine Blood Negative (NEGATIVE) 06/06/18 12:05 Urine Nitrite Negative (NEGATIVE) 06/06/18 12:05 Urine Bilirubin Negative (<2.0 mg/dL) 06/06/18 12:05 Urine Urobilinogen Negative mg/dL (0.2-1.0) 06/06/18 12:05 Ur Leukocyte Esterase Negative (NEGATIVE) 06/06/18 12:05 Influenza A (Rapid) Negative 06/06/18 13:00 Influenza B (Rapid) Negative 06/06/18 13:00 Microbiology 06/06/18 09:55 Blood - Peripheral Venous Blood Culture - Final NO GROWTH AFTER 5 DAYS INCUBATION 06/06/18 09:40 Blood - Peripheral Venous Blood Culture - Final NO GROWTH AFTER 5 DAYS INCUBATION 06/06/18 12:05 Urine - Urine Clean Catch Urine Culture - Final Condition: Stable - Instructions Disposition: HALFWAY FACILITY - Home Medications Comprehensive Discharge Medication List: Ambulatory Orders Gabapentin 300 mg PO TID 07/15/17 Memantine HCl [Namenda -] 5 mg PO BID 07/15/17 Latanoprost 0.005% Eye Drops [Xalatan 0.005% Eye Drops -] 1 drop HS 03/10/18 Acetaminophen [Tylenol .Regular Strength -] 650 mg PO Q4H PRN tablet 03/14/18 Albuterol 0.083% Nebulizer Roxann [Ventolin 0.083% Nebulizer Soln -] 1 amp NEB Q4H PRN amp 03/14/18 Olanzapine [Zyprexa -] 7.5 mg PO HS tablet 03/14/18 Acetaminophen [Tylenol .Regular Strength -] 650 mg PO Q6H PRN tablet 06/11/18 Atorvastatin Ca [Lipitor] 40 mg PO HS tablet 06/11/18 Heparin - 5,000 unit SQ BID vial 06/11/18 Latanoprost 0.005% Eye Drops [Xalatan 0.005% Eye Drops -] 1 drop OD HS drops Memantine HCl [Namenda -] 5 mg PO BID tab 06/11/18 Olanzapine [Zyprexa -] 7.5 mg PO HS tablet 06/11/18 Quetiapine Fumarate [Seroquel -] 25 mg PO DAILY tablet 06/11/18
--- NOTE | 2018-06-11 17:43 | CON.PSY ---
Psychiatry Consult Chief Complaint: 83 year old male with severe Dementia seen for fay stewart. Reports of acute agitation and aggressive behaviour. Constantly talking and attempting to get out of the wheel chair. Very disorganized and disruptive. Symptoms: reports: Memory Impairment, Inability to Control Temper, Aggressivity - Previous Psychiatric Treatment Outpatient: None Inpatient: None - Previous Substance Abuse Treatment Outpatient: None Inpatient: None - Current Medications Current Medications: Active Medications Acetaminophen (Tylenol -) 650 mg PO Q6H PRN PRN Reason: FEVER Atorvastatin Calcium (Lipitor -) 40 mg PO HS [facility] Last Admin: 06/10/18 22:29 Dose: 40 mg Cefuroxime Axetil (Ceftin -) 500 mg PO BID [facility] Last Admin: 06/11/18 09:12 Dose: 500 mg Heparin Sodium (Porcine) (Heparin -) 5,000 unit SQ BID [facility] Last Admin: 06/11/18 09:12 Dose: 5,000 unit Latanoprost (Xalatan 0.005% Eye Drops -) 1 drop OD [facility] Last Admin: 06/10/18 22:31 Dose: 1 drop Memantine (Namenda -) 5 mg PO BID [facility] Last Admin: 06/11/18 09:12 Dose: 5 mg Potassium Chloride (Potassium Chloride Oral Liquid) 20 meq PO DAILY ONE Stop: 06/12/18 10:01 - Allergies Allergies: Allergies Allergy/AdvReac Type Severity Reaction Status Date / Time No Known Allergies Allergy Verified 06/06/18 08:08 - Current Living Status Usual Living Arrangement: With Significant Other - Current Mental Status Evaluation Appearance: Disheveled Attitude: Belligerent - Affect Affect: Labile Appropriateness: Not Appropriate - Mood Mood: Angry - Speech/Language Expressive: Delayed - Psychomotor Activity Psychomotor Activity: Agitated - Thought Process Thought Process: Circumstantial - Thought Content Hallucinations: Absent Delusions: Absent - Self Perception Self Perception: Depersonalization - Cognition Attention: Diminished Memory, Immediate Recall: Impaired Memory, Short Term: 0/3 Memory, Remote with Promptin/3 - Concentration Serial Sevens Intact: No Simple Calculations Intact: No - Abstraction Proverb Interpretation: Impaired Judgement: Severely Impaired - Insight Insight: Impaired - Suicidal Ideation Suicidal Ideation: No - Homicidal Ideation Homicidal Ideation: No Assessment/Plan 1) increase Zyprexa 15mg po hs. 2) Try Haldol Decanoate 12.5mg im if Zyprexa is ineffective.
[2018-06-11] MEDS ORDERED: OLANZapine 5 MG TABLET PO SCH (22:00)
[2018-06-11] MEDS: ATORVASTATIN CA 40 MG TABLET (FP) PO SCH (22:22)
[2018-06-11] MEDS: LATANOPROST 0.005% OPHTH SOLN 2.5ML BOTTLE OD SCH (22:23)
[2018-06-12 07:48] LABS: ANION GAP 8 MMOL/L (8-16); BLOOD UREA NITROGEN 17 mg/dL (7-18); CALCIUM 8.7 mg/dL (8.5-10.1); CHLORIDE 111 mmol/L (98-107); CO2 25 mmol/L (21-32); CREATININE 0.7 mg/dL (0.55-1.3); GLUCOSE,RANDOM 80 mg/dL (74-106); POTASSIUM 3.8 mmol/L (3.5-5.1); SODIUM 145 mmol/L (136-145)
[2018-06-12] MEDS ORDERED: PT OWN MED DRAWER 7, Y5N ONE ×2 (09:53→09:54)
[2018-06-12] MEDS ORDERED: POTASSIUM CHLORIDE ORAL LIQUID 20 MEQ/15 ML PO ONE (10:00)
[2018-06-12] MEDS: HEPARIN NA (PORCINE) 5,000 UNITS/ML 1ML VIAL SQ SCH (10:01)
[2018-06-12] MEDS: MEMANTINE HCL 5 MG TABLET (UD) PO SCH (10:01)
[2018-06-12] MEDS: CEFUROXIME AXETIL 500 MG TABLET PO SCH (10:02)
[2018-06-12 14:23] VITALS: BP 121/77; PULSE 75; TEMP 98.2
== END 2018-06-12 15:19 | DRG 871 ==
LOC: JER 08:06 → JERBED 11:02 → J6S 12:05
PROVIDERS: ADMIT Family Medicine; ATTEND Family Medicine
DX: A41.89 Other specified sepsis (principal); G93.41 Metabolic encephalopathy; F02.81 Dementia in other diseases classified elsewhere, unspecified severity, with behavioral disturbance; G30.9 Alzheimer's disease, unspecified; I10 Essential (primary) hypertension; E78.5 Hyperlipidemia, unspecified; F41.8 Other specified anxiety disorders; D72.829 Elevated white blood cell count, unspecified; E87.6 Hypokalemia; I44.0 Atrioventricular block, first degree; J06.9 Acute upper respiratory infection, unspecified
CPT/HCPCS: 36415; 71045-TC-FY; 80048; 80053; 81003; 82803; 83605; 83735; 84484; 85025; 85027; 85610; 85730; 87040; 87086; 87804; 93005; 93010; 97116-GP; 97161-GP; 99285-25; J1644; J7030